=== PATIENT | female | born 1935 | race Hispanic/Latino ===

== ENCOUNTER 2017-07-29 09:25 | Inpatient (IN) | payer MEDICARE, OTHER ==
[~2017-07-29] VITALS: Ht 162.6 cm; Wt 82.4 kg
[~2017-07-29 09:25] MED LIST: BENZ-51 PO; FERR-82 PO; FOLI1TAB85 PO; IMAT400T2 PO; METO50TA18 PO; MIRT15TA6 PO; MUPI22OI2 TP; PANT40TA25 PO; POTA20TA82 PO; PROM25 PO; SITA50TA PO; TORS20TA4 PO; TRAM50TA4 PO
[2017-07-29 11:26] LABS: CREATININE 2.5 mg/dL (0.5-1.5); POTASSIUM 4.3 mmol/L (3.5-5.1)
[2017-07-29 11:28] LABS: ALBUMIN 3.4 g/dL (3.5-5.0); BILIRUBIN,TOTAL 0.7 mg/dL (0.2-1.0); TOTAL PROTEIN, SERUM 5.4 g/dL (6.0-8.3)
[2017-07-29 11:34] LABS: BASOPHILS % (AUTO) 0.3 % (0.0-5.0); EOSINOPHILS % (AUTO) 1.1 % (0.0-8.0); LYMPHOCYTES % (AUTO) 11.2 % (21.0-51.0); MEAN CORPUSCULAR HEMOGLOBIN 31.7 pg (27.0-33.0); MEAN CORPUSCULAR HGB CONC 33.9 g/dL (32.0-36.0); MEAN CORPUSCULAR VOLUME 93.4 fL (79-99); MONOCYTES % (AUTO) 3.9 % (3.0-13.0); NEUTROPHILS % (AUTO) 83.5 % (40.0-77.0); PLATELET COUNT (AUTO) 84 K/uL (130-400); RED BLOOD CELL COUNT(AUTO) 2.19 MIL/uL (4.00-5.50); RED CELL DISTRIBUTION WIDTH 18.4 % (11.0-15.5); WHITE BLOOD COUNT (AUTO) 5.7 K/uL (4.8-10.8)
[2017-07-29 11:45] LABS: HEMATOCRIT 20.4 % (36-48)
[2017-07-29 11:49] LABS: INR 1.07 (0.85-1.15); PARTIAL THROMBOPLASTIN TIME 25.4 SEC (26.3-35.5); PROTHROMBIN TIME 11.2 SEC (9.6-11.6)
[2017-07-29] MEDS ORDERED: PEG 3350/NA SULF,BICARB,CL/KCL 4000 ML SOLN PO SCH (15:15)
[2017-07-29 18:27] LABS: BASOPHILS % (AUTO) 0.7 % (0.0-5.0); EOSINOPHILS % (AUTO) 1.9 % (0.0-8.0); HEMATOCRIT 26.9 % (36-48); LYMPHOCYTES % (AUTO) 14.9 % (21.0-51.0); MEAN CORPUSCULAR HEMOGLOBIN 31.1 pg (27.0-33.0); MEAN CORPUSCULAR HGB CONC 34.1 g/dL (32.0-36.0); MEAN CORPUSCULAR VOLUME 91.2 fL (79-99); MONOCYTES % (AUTO) 5.8 % (3.0-13.0); NEUTROPHILS % (AUTO) 76.7 % (40.0-77.0); PLATELET COUNT (AUTO) 91 K/uL (130-400); RED BLOOD CELL COUNT(AUTO) 2.95 MIL/uL (4.00-5.50); RED CELL DISTRIBUTION WIDTH 18.2 % (11.0-15.5); WHITE BLOOD COUNT (AUTO) 7.4 K/uL (4.8-10.8)
[2017-07-30] MEDS ORDERED: SODIUM CHLORIDE 0.9% 1000ML 1,000 ML IV ONE (02:38)
[2017-07-30 05:48] LABS: BASOPHILS % (AUTO) 0.5 % (0.0-5.0); EOSINOPHILS % (AUTO) 2.2 % (0.0-8.0); LYMPHOCYTES % (AUTO) 13.9 % (21.0-51.0); MEAN CORPUSCULAR HEMOGLOBIN 32.8 pg (27.0-33.0); MEAN CORPUSCULAR HGB CONC 36.4 g/dL (32.0-36.0); MEAN CORPUSCULAR VOLUME 90.2 fL (79-99); MONOCYTES % (AUTO) 5.8 % (3.0-13.0); NEUTROPHILS % (AUTO) 77.6 % (40.0-77.0); PLATELET COUNT (AUTO) 80 K/uL (130-400); RED BLOOD CELL COUNT(AUTO) 2.88 MIL/uL (4.00-5.50); RED CELL DISTRIBUTION WIDTH 17.7 % (11.0-15.5); WHITE BLOOD COUNT (AUTO) 4.9 K/uL (4.8-10.8)
[2017-07-30 05:57] LABS: CREATININE 1.8 mg/dL (0.5-1.5); POTASSIUM 3.7 mmol/L (3.5-5.1)
[2017-07-30] MEDS ORDERED: PROPOFOL 10 MG/ML 20ML VIAL IV ONE (09:32)
[2017-07-30 12:09] VITALS: BP 143/59
[2017-07-30] MEDS ORDERED: ONDANSETRON HCL 4 MG/2 ML VIAL IVP PRN (12:30)
[2017-07-30] MEDS: PANTOPRAZOLE 40 MG/VIAL IVP SCH (14:32)
[2017-07-30] MEDS ORDERED: FURO40TA5 PO (15:08)
[2017-07-30] MEDS ORDERED: ROSU5TAB18 PO (15:08)
[2017-07-30 16:06] VITALS: BP 144/45
[2017-07-30] MEDS: INSULIN R PO SS1 SQ SCH ×2 (16:30→20:24)
[2017-07-30 19:42] VITALS: BP 130/64
[2017-07-31] VITALS: BP 117/54
[2017-07-31 04:00] VITALS: BP 129/55
[2017-07-31 04:29] LABS: BASOPHILS % (AUTO) 0.6 % (0.0-5.0); EOSINOPHILS % (AUTO) 3.1 % (0.0-8.0); HEMATOCRIT 25.9 % (36-48); LYMPHOCYTES % (AUTO) 9.9 % (21.0-51.0); MEAN CORPUSCULAR HEMOGLOBIN 31.4 pg (27.0-33.0); MEAN CORPUSCULAR HGB CONC 34.4 g/dL (32.0-36.0); MEAN CORPUSCULAR VOLUME 91.1 fL (79-99); MONOCYTES % (AUTO) 6.4 % (3.0-13.0); PLATELET COUNT (AUTO) 75 K/uL (130-400); RED BLOOD CELL COUNT(AUTO) 2.84 MIL/uL (4.00-5.50); RED CELL DISTRIBUTION WIDTH 17.9 % (11.0-15.5); WHITE BLOOD COUNT (AUTO) 5.7 K/uL (4.8-10.8)
[2017-07-31 04:41] LABS: CREATININE 1.3 mg/dL (0.5-1.5); POTASSIUM 3.6 mmol/L (3.5-5.1)
[2017-07-31] MEDS: INSULIN R PO SS1 SQ SCH ×2 (06:01→11:30)
[2017-07-31 07:00] VITALS: BP 138/44
[2017-07-31] MEDS ORDERED: PHARMACY COMMUNICATION MISC SCH (09:45)
[2017-07-31] MEDS: PANTOPRAZOLE 40 MG/VIAL IVP SCH (09:54)
[2017-07-31] MEDS ORDERED: MUPIROCIN OINTMENT 22 GM TUBE TP PRN (10:00)
[2017-07-31] MEDS ORDERED: TRAMADOL HCL 50 MG TABLET PO PRN (10:00)
[2017-07-31 11:00] VITALS: BP 127/63
[2017-07-31] MEDS ORDERED: BENZONATATE 100 MG CAPSULE PO SCH (14:00)
[2017-07-31] MEDS ORDERED: MIRTAZAPINE 15 MG TABLET PO SCH (21:00)
[2017-07-31] MEDS ORDERED: METOPROLOL TARTRATE 50 MG TAB PO SCH (21:00)
[2017-07-31] MEDS ORDERED: ATORVASTATIN CALCIUM 10 MG TABLET PO SCH (21:00)
[2017-07-31] MEDS ORDERED: BENEFIBER PO SCH (21:00)
[2017-08-01] MEDS ORDERED: FOLIC ACID/VITAMIN B COMP W-C 1 MG CAPSULE PO SCH (09:00)
[2017-08-01] MEDS ORDERED: PANTOPRAZOLE SODIUM 40 MG TABLET.DR PO SCH (09:00)
[2017-08-01] MEDS ORDERED: LINAGLIPTIN 5 MG TABLET PO SCH (09:00)
[2017-08-01] MEDS ORDERED: FUROSEMIDE 40 MG TABLET PO SCH (09:00)
[2017-08-01] MEDS ORDERED: FERROUS SULFATE 325 MG TABLET.DR PO SCH (09:00)
== END 2017-07-31 15:43 | disposition home or self-care (01) | DRG 377 ==
LOC: EDH 09:25 → EDHIP 12:34 → 2DH 07-30 11:35
PROVIDERS: ADMIT Internal Medicine Nephrology; ATTEND Internal Medicine Nephrology
PROC: 30233N1 Transfusion of Nonautologous Red Blood Cells into Peripheral Vein, Percutaneous Approach (ICD-10-PCS; principal; 2017-07-30)
PROC: 0DJD8ZZ Inspection of Lower Intestinal Tract, Via Natural or Artificial Opening Endoscopic (ICD-10-PCS; 2017-07-30)
PROC: 0DJ08ZZ Inspection of Upper Intestinal Tract, Via Natural or Artificial Opening Endoscopic (ICD-10-PCS; 2017-07-30)
DX: K29.01 Acute gastritis with bleeding (principal); R57.8 Other shock; C92.10 Chronic myeloid leukemia, BCR/ABL-positive, not having achieved remission; E11.21 Type 2 diabetes mellitus with diabetic nephropathy; N18.4 Chronic kidney disease, stage 4 (severe); N17.9 Acute kidney failure, unspecified; D69.6 Thrombocytopenia, unspecified; E11.51 Type 2 diabetes mellitus with diabetic peripheral angiopathy without gangrene; D62 Acute posthemorrhagic anemia; I42.9 Cardiomyopathy, unspecified; I13.0 Hypertensive heart and chronic kidney disease with heart failure and stage 1 through stage 4 chronic kidney disease, or unspecified chronic kidney disease; K64.8 Other hemorrhoids; K64.4 Residual hemorrhoidal skin tags; K57.30 Diverticulosis of large intestine without perforation or abscess without bleeding; I50.9 Heart failure, unspecified; E11.22 Type 2 diabetes mellitus with diabetic chronic kidney disease; E66.01 Morbid (severe) obesity due to excess calories; E78.5 Hyperlipidemia, unspecified; G47.33 Obstructive sleep apnea (adult) (pediatric); I25.10 Atherosclerotic heart disease of native coronary artery without angina pectoris; R62.7 Adult failure to thrive; Z90.710 Acquired absence of both cervix and uterus; Z80.42 Family history of malignant neoplasm of prostate; Z80.3 Family history of malignant neoplasm of breast; Z68.31 Body mass index [BMI] 31.0-31.9, adult; Z88.0 Allergy status to penicillin; Z88.8 Allergy status to other drugs, medicaments and biological substances; Z90.49 Acquired absence of other specified parts of digestive tract; Z98.42 Cataract extraction status, left eye; Z98.41 Cataract extraction status, right eye
CPT/HCPCS: 36415; 80048; 80053; 82948; 85025; 85610; 85730; 86850; 86900; 86901; 86922; 99291; C9113; J2704; J7030; P9016

== ENCOUNTER → 2017-10-14 | Outpatient (CLI) | payer OTHER ==
[~2017-10-14] MED LIST changes: -IMAT400T2 PO; +IMAT400T8 PO; +ONDA8TAB12 PO; +ROSU5TAB11 PO; +SENN-155 PO; +SENN-197 PO
== END | disposition home or self-care (01) ==
LOC: RAH 11:01
PROVIDERS: ATTEND Internal Medicine Gastroenterology
DX: R10.10 Upper abdominal pain, unspecified (principal); R14.0 Abdominal distension (gaseous); R10.9 Unspecified abdominal pain
CPT/HCPCS: 78264; A9541

== ENCOUNTER 2017-11-27 14:32 | Inpatient (IN) | payer OTHER ==
[~2017-11-27] VITALS: Ht 162.6 cm; Wt 79.3 kg
[~2017-11-27 14:32] MED LIST changes: -IMAT400T8 PO; -ONDA8TAB12 PO; -SENN-155 PO; -SENN-197 PO
[2017-11-27 16:09] LABS: BASOPHILS % (AUTO) 0.2 % (0.0-5.0); EOSINOPHILS % (AUTO) 0.1 % (0.0-8.0); LYMPHOCYTES % (AUTO) 8.5 % (21.0-51.0); MEAN CORPUSCULAR HEMOGLOBIN 30.8 pg (27.0-33.0); MEAN CORPUSCULAR HGB CONC 34.2 g/dL (32.0-36.0); MONOCYTES % (AUTO) 4.7 % (3.0-13.0); NEUTROPHILS % (AUTO) 86.5 % (40.0-77.0); NUCLEATED RED BLOOD CELLS 0.1 % (0.0-0.19); PLATELET COUNT (AUTO) 101 K/uL (130-400); RED BLOOD CELL COUNT(AUTO) 1.83 MIL/uL (4.00-5.50); RED CELL DISTRIBUTION WIDTH 20.1 % (11.0-15.5)
[2017-11-27 16:14] LABS: HEMATOCRIT 16.5 % (36-48)
[2017-11-27 16:25] LABS: ALBUMIN 3.7 g/dL (3.5-5.0); BILIRUBIN,TOTAL 0.7 mg/dL (0.2-1.0); CREATININE 2.5 mg/dL (0.5-1.5); POTASSIUM 3.1 mmol/L (3.5-5.1); TOTAL PROTEIN, SERUM 5.6 g/dL (6.0-8.3)
[2017-11-27] MEDS ORDERED: SODIUM CHLORIDE 0.9% 500ML 500 ML IV ONE (17:36)
[2017-11-27] MEDS ORDERED: DEXAMETHASONE SOD PHOSPHATE 10MG/ML 1ML VIAL ONE (17:48)
[2017-11-27] MEDS ORDERED: DiphenhydrAMINE HCL 50 MG/ML VIAL ONE (17:48)
[2017-11-27 19:10] VITALS: BP 150/74
[2017-11-27] MEDS ORDERED: SODIUM CHLORIDE 0.9% 1000ML 1,000 ML IV ONE (20:44)
[2017-11-28 00:22] VITALS: BP 135/68
[2017-11-28] MEDS ORDERED: SENNOSIDES 8.6 MG TABLET PO PRN (02:00)
[2017-11-28] MEDS ORDERED: TRAMADOL HCL 50 MG TABLET PO PRN (02:00)
[2017-11-28] MEDS ORDERED: SENN-155 PO (02:14)
[2017-11-28] MEDS ORDERED: SENN-197 PO (02:14)
[2017-11-28] MEDS ORDERED: IMAT400T8 PO (02:14)
[2017-11-28] MEDS ORDERED: ONDA8TAB12 PO (02:14)
[2017-11-28] MEDS ORDERED: ONDANSETRON HCL MDV 20ML 2 MG/ML VIAL IVP PRN (03:15)
[2017-11-28] MEDS ORDERED: HYDRALAZINE HCL 20 MG/ML VIAL IV PRN (03:15)
[2017-11-28] MEDS ORDERED: POTASSIUM CHLORIDE 10% ELIXIR 20 MEQ/15 ML UDCUP PO PRN (03:15)
[2017-11-28] MEDS ORDERED: LIDOCAINE HCL-MPF 1% 2ML VIAL IVP PRN (03:15)
[2017-11-28] MEDS ORDERED: POTASSIUM CHLORIDE 20MEQ/100ML 100 ML IV PRN (03:15)
[2017-11-28 04:10] VITALS: BP 138/74
[2017-11-28 06:02] LABS: HEMATOCRIT 24.8 % (36-48); MEAN CORPUSCULAR HEMOGLOBIN 29.9 pg (27.0-33.0); MEAN CORPUSCULAR HGB CONC 34.1 g/dL (32.0-36.0); MEAN CORPUSCULAR VOLUME 87.6 fL (79-99); PLATELET COUNT (AUTO) 70 K/uL (130-400); RED BLOOD CELL COUNT(AUTO) 2.83 MIL/uL (4.00-5.50); RED CELL DISTRIBUTION WIDTH 17.5 % (11.0-15.5); WHITE BLOOD COUNT (AUTO) 5.2 K/uL (4.8-10.8)
[2017-11-28 06:23] LABS: CREATININE 2.3 mg/dL (0.5-1.5); MAGNESIUM 1.6 mg/dL (1.80-2.40); PHOSPHORUS 3.9 mg/dL (2.5-4.9); POTASSIUM 3.8 mmol/L (3.5-5.1)
[2017-11-28 08:00] VITALS: BP 130/78
[2017-11-28] MEDS ORDERED: MORPHINE SULFATE 4 MG/1ML SYG IVP PRN (09:00)
[2017-11-28] MEDS ORDERED: MORPHINE SULFATE 2 MG/ML 1ML SYG IVP PRN (09:00)
[2017-11-28] MEDS: VITAMIN B COMPLEX 1 CAPSULE PO SCH ×2 (09:00→14:14)
[2017-11-28] MEDS: FAMOTIDINE/PF 20 MG/2 ML VIAL IV SCH (10:07)
[2017-11-28 11:00] VITALS: BP 143/68
[2017-11-28] MEDS: SODIUM CHLORIDE 0.9% 1000ML 1,000 ML IV SCH ×2 (12:00→14:17)
[2017-11-28] MEDS: PANTOPRAZOLE SODIUM 40 MG TABLET.DR PO SCH (14:13)
[2017-11-28] MEDS: LINAGLIPTIN 5 MG TABLET PO SCH (14:13)
[2017-11-28] MEDS: METOPROLOL TARTRATE 50 MG TAB PO SCH ×2 (14:13→21:43)
[2017-11-28] MEDS: BENZONATATE 100 MG CAPSULE PO SCH ×2 (14:13→21:43)
[2017-11-28] MEDS ORDERED: MAGNESIUM 2GM PREMIX 50ML 50 ML IV ONE (14:30)
[2017-11-28 16:00] VITALS: BP 149/63
[2017-11-28 19:00] VITALS: BP 161/87
[2017-11-28] MEDS: TORSEMIDE 20 MG TAB PO SCH (21:43)
[2017-11-28] MEDS: MIRTAZAPINE 15 MG TABLET PO SCH (21:43)
[2017-11-28 22:54] LABS: APPEARANCE,URINE Cloudy (CLEAR); BILIRUBIN,URINE Negative (NEGATIVE); COLOR,URINE Yellow (YELLOW); GLUCOSE, URINE (UA) Negative (NEGATIVE); KETONES,URINE Negative (NEGATIVE); LEUKOCYTE ESTERASE ,URINE Large (NEGATIVE); NITRATE,URINE Negative (NEGATIVE); OCCULT BLOOD,URINE Small (NEGATIVE); PH,URINE 5.5 (5.0-8.0); PROTEIN,URINE POS 1+ (NEGATIVE); UROBILINOGEN,URINE 0.2 mg/dL (0.2-1.0)
[2017-11-28 23:03] LABS: BACTERIA,URINE Moderate /HPF (None Seen); MUCUS,URINE Few LPF (None Seen); SQUAMOUS EPITHELIAL CELL,UR Few /HPF (0-2); TRANSITIONAL EPI CELLS,URINE Moderate /HPF (None Seen)
[2017-11-29 00:05] VITALS: BP 134/75
[2017-11-29] MEDS: SODIUM CHLORIDE 0.9% 1000ML 1,000 ML IV SCH (00:34)
[2017-11-29 04:10] VITALS: BP 122/62
[2017-11-29 06:54] LABS: BASOPHILS % (AUTO) 0.2 % (0.0-5.0); EOSINOPHILS % (AUTO) 0.1 % (0.0-8.0); LYMPHOCYTES % (AUTO) 7.3 % (21.0-51.0); MEAN CORPUSCULAR HGB CONC 34.5 g/dL (32.0-36.0); MONOCYTES % (AUTO) 7.3 % (3.0-13.0); NEUTROPHILS % (AUTO) 85.1 % (40.0-77.0); NUCLEATED RED BLOOD CELLS 0.1 % (0.0-0.19); PLATELET COUNT (AUTO) 83 K/uL (130-400); RED BLOOD CELL COUNT(AUTO) 2.78 MIL/uL (4.00-5.50); RED CELL DISTRIBUTION WIDTH 17.8 % (11.0-15.5); WHITE BLOOD COUNT (AUTO) 8.8 K/uL (4.8-10.8)
[2017-11-29 07:16] LABS: MAGNESIUM 2.1 mg/dL (1.80-2.40); POTASSIUM 3.6 mmol/L (3.5-5.1); URIC ACID 9.3 mg/dL (2.6-7.2)
[2017-11-29 08:00] VITALS: BP 135/79
[2017-11-29] MEDS: LINAGLIPTIN 5 MG TABLET PO SCH (08:55)
[2017-11-29] MEDS: METOPROLOL TARTRATE 50 MG TAB PO SCH ×2 (08:55→20:55)
[2017-11-29] MEDS: VITAMIN B COMPLEX 1 CAPSULE PO SCH (08:55)
[2017-11-29] MEDS: BENZONATATE 100 MG CAPSULE PO SCH ×3 (08:55→20:55)
[2017-11-29] MEDS: PANTOPRAZOLE SODIUM 40 MG TABLET.DR PO SCH (08:55)
[2017-11-29] MEDS: FAMOTIDINE/PF 20 MG/2 ML VIAL IV SCH (08:55)
[2017-11-29 11:00] VITALS: BP 134/68
[2017-11-29] MEDS: IPRATROPIUM/ALBUTEROL SULFATE 3 ML SOLUTION IH SCH ×3 (11:44→23:46)
[2017-11-29] MEDS ORDERED: ACETAMINOPHEN 325 MG TAB PO PRN (15:15)
[2017-11-29 16:00] VITALS: BP 125/69
[2017-11-29 19:05] VITALS: BP 129/71
[2017-11-29] MEDS: TORSEMIDE 20 MG TAB PO SCH (20:55)
[2017-11-29] MEDS: MIRTAZAPINE 15 MG TABLET PO SCH (20:55)
[2017-11-30] VITALS (7 sets, daily range): BP systolic 118–161; BP diastolic 54–79
[2017-11-30] MEDS: IPRATROPIUM/ALBUTEROL SULFATE 3 ML SOLUTION IH SCH ×4 (06:45→23:40)
[2017-11-30 07:34] LABS: HEMATOCRIT 25.6 % (36-48); MEAN CORPUSCULAR HEMOGLOBIN 30.1 pg (27.0-33.0); MEAN CORPUSCULAR HGB CONC 33.6 g/dL (32.0-36.0); MEAN CORPUSCULAR VOLUME 89.5 fL (79-99); NUCLEATED RED BLOOD CELLS 0.1 % (0.0-0.19); PLATELET COUNT (AUTO) 78 K/uL (130-400); RED BLOOD CELL COUNT(AUTO) 2.86 MIL/uL (4.00-5.50); RED CELL DISTRIBUTION WIDTH 17.9 % (11.0-15.5); WHITE BLOOD COUNT (AUTO) 7.8 K/uL (4.8-10.8)
[2017-11-30 07:45] LABS: CREATININE 1.6 mg/dL (0.5-1.5); POTASSIUM 3.1 mmol/L (3.5-5.1)
[2017-11-30] MEDS: VITAMIN B COMPLEX 1 CAPSULE PO SCH (09:27)
[2017-11-30] MEDS: METOPROLOL TARTRATE 50 MG TAB PO SCH ×2 (09:27→21:00)
[2017-11-30] MEDS: ALLOPURINOL 100 MG TABLET PO SCH (09:28)
[2017-11-30] MEDS: LINAGLIPTIN 5 MG TABLET PO SCH (09:28)
[2017-11-30] MEDS: PANTOPRAZOLE SODIUM 40 MG TABLET.DR PO SCH (09:28)
[2017-11-30] MEDS: BENZONATATE 100 MG CAPSULE PO SCH ×3 (09:28→21:00)
[2017-11-30] MEDS: POTASSIUM CHLORIDE 20 MEQ ERTAB PO PRN ×3 (09:29→15:08)
[2017-11-30] MEDS: FAMOTIDINE/PF 20 MG/2 ML VIAL IV SCH (09:29)
[2017-11-30] MEDS: TORSEMIDE 20 MG TAB PO SCH (21:00)
[2017-11-30] MEDS: MIRTAZAPINE 15 MG TABLET PO SCH (21:00)
[2017-12-01] VITALS (7 sets, daily range): BP systolic 128–175; BP diastolic 54–81
[2017-12-01 05:40] LABS: HEMATOCRIT 25.4 % (36-48); MEAN CORPUSCULAR HEMOGLOBIN 30.8 pg (27.0-33.0); MEAN CORPUSCULAR HGB CONC 34.1 g/dL (32.0-36.0); MEAN CORPUSCULAR VOLUME 90.6 fL (79-99); PLATELET COUNT (AUTO) 74 K/uL (130-400); RED CELL DISTRIBUTION WIDTH 17.9 % (11.0-15.5); WHITE BLOOD COUNT (AUTO) 7.1 K/uL (4.8-10.8)
[2017-12-01 05:50] LABS: EOSINOPHILS % (MANUAL) 1 % (1-6); LYMPHOCYTES % (MANUAL) 9 % (22-44); MAN.DIFF COMMENT-IMPRESSION MANUAL DIFFERENTIAL; PLATELET MORPHOLOGY COMMENT DECREASED; SEGMENTED NEUTROPHILS % 90 % (40-70)
[2017-12-01 05:57] LABS: CREATININE 1.4 mg/dL (0.5-1.5); MAGNESIUM 1.9 mg/dL (1.80-2.40); PHOSPHORUS 2.5 mg/dL (2.5-4.9); POTASSIUM 3.8 mmol/L (3.5-5.1)
[2017-12-01] MEDS: IPRATROPIUM/ALBUTEROL SULFATE 3 ML SOLUTION IH SCH ×4 (06:56→23:55)
[2017-12-01] MEDS: VITAMIN B COMPLEX 1 CAPSULE PO SCH (09:43)
[2017-12-01] MEDS: PANTOPRAZOLE SODIUM 40 MG TABLET.DR PO SCH (09:43)
[2017-12-01] MEDS: FAMOTIDINE/PF 20 MG/2 ML VIAL IV SCH (09:43)
[2017-12-01] MEDS: BENZONATATE 100 MG CAPSULE PO SCH ×3 (09:43→20:00)
[2017-12-01] MEDS: ALLOPURINOL 100 MG TABLET PO SCH (09:43)
[2017-12-01] MEDS: METOPROLOL TARTRATE 50 MG TAB PO SCH ×2 (09:44→20:00)
[2017-12-01] MEDS: LINAGLIPTIN 5 MG TABLET PO SCH (09:44)
[2017-12-01] MEDS: MIRTAZAPINE 15 MG TABLET PO SCH (20:00)
[2017-12-01] MEDS: TORSEMIDE 20 MG TAB PO SCH (20:00)
[2017-12-02 03:56] VITALS: BP 120/50
[2017-12-02 04:31] LABS: HEMATOCRIT 23.7 % (36-48); MEAN CORPUSCULAR HEMOGLOBIN 30.1 pg (27.0-33.0); MEAN CORPUSCULAR VOLUME 90.9 fL (79-99); PLATELET COUNT (AUTO) 76 K/uL (130-400); RED CELL DISTRIBUTION WIDTH 18.5 % (11.0-15.5); WHITE BLOOD COUNT (AUTO) 6.5 K/uL (4.8-10.8)
[2017-12-02 04:47] LABS: CREATININE 1.3 mg/dL (0.5-1.5); POTASSIUM 3.3 mmol/L (3.5-5.1)
[2017-12-02] MEDS: POTASSIUM CHLORIDE 20 MEQ ERTAB PO PRN (05:00)
[2017-12-02 05:17] LABS: EOSINOPHILS % (MANUAL) 4 % (1-6); LYMPHOCYTES % (MANUAL) 6 % (22-44); MAN.DIFF COMMENT-IMPRESSION MANUAL DIFFERENTIAL; MONOCYTES % (MANUAL) 4 % (2-9); SEGMENTED NEUTROPHILS % 86 % (40-70)
[2017-12-02 05:18] LABS: PLATELET MORPHOLOGY COMMENT DECREASED
[2017-12-02] MEDS: IPRATROPIUM/ALBUTEROL SULFATE 3 ML SOLUTION IH SCH ×2 (06:46→11:18)
[2017-12-02 08:00] VITALS: BP 149/64
[2017-12-02] MEDS: BENZONATATE 100 MG CAPSULE PO SCH ×2 (09:00→14:00)
[2017-12-02] MEDS: VITAMIN B COMPLEX 1 CAPSULE PO SCH (10:01)
[2017-12-02] MEDS: METOPROLOL TARTRATE 50 MG TAB PO SCH (10:01)
[2017-12-02] MEDS: FAMOTIDINE/PF 20 MG/2 ML VIAL IV SCH (10:02)
[2017-12-02] MEDS: LINAGLIPTIN 5 MG TABLET PO SCH (10:02)
[2017-12-02] MEDS: PANTOPRAZOLE SODIUM 40 MG TABLET.DR PO SCH (10:02)
[2017-12-02] MEDS: ALLOPURINOL 100 MG TABLET PO SCH (10:02)
[2017-12-02] MEDS ORDERED: ACETAMINOPHEN 325 MG TAB PO SCH (11:30)
[2017-12-02] MEDS ORDERED: DiphenhydrAMINE HCL 50 MG/ML VIAL IV SCH (11:30)
[2017-12-02 11:32] VITALS: BP 151/64
[2017-12-02 16:00] VITALS: BP 164/74
[2017-12-02] MEDS ORDERED: HEPARIN SODIUM/PF 100UNIT/ML 5ML SYRINGE IV SCH (18:30)
== END 2017-12-02 18:55 | disposition home or self-care (01) | DRG 378 ==
LOC: EDH 14:32 → EDHIP 14:33 → 3DH 19:51
PROVIDERS: ADMIT Internal Medicine; ATTEND Internal Medicine
PROC: 30233N1 Transfusion of Nonautologous Red Blood Cells into Peripheral Vein, Percutaneous Approach (ICD-10-PCS; principal; 2017-11-27)
DX: K92.2 Gastrointestinal hemorrhage, unspecified (principal); C92.10 Chronic myeloid leukemia, BCR/ABL-positive, not having achieved remission; I13.0 Hypertensive heart and chronic kidney disease with heart failure and stage 1 through stage 4 chronic kidney disease, or unspecified chronic kidney disease; I50.32 Chronic diastolic (congestive) heart failure; N17.9 Acute kidney failure, unspecified; E11.21 Type 2 diabetes mellitus with diabetic nephropathy; D69.6 Thrombocytopenia, unspecified; E11.22 Type 2 diabetes mellitus with diabetic chronic kidney disease; K92.1 Melena; D50.0 Iron deficiency anemia secondary to blood loss (chronic); N18.9 Chronic kidney disease, unspecified; I25.10 Atherosclerotic heart disease of native coronary artery without angina pectoris; E78.5 Hyperlipidemia, unspecified; E11.51 Type 2 diabetes mellitus with diabetic peripheral angiopathy without gangrene; E83.42 Hypomagnesemia; G47.33 Obstructive sleep apnea (adult) (pediatric); E78.00 Pure hypercholesterolemia, unspecified; R62.7 Adult failure to thrive; Z88.0 Allergy status to penicillin; Z88.8 Allergy status to other drugs, medicaments and biological substances; Z95.0 Presence of cardiac pacemaker; Z90.710 Acquired absence of both cervix and uterus; Z87.440 Personal history of urinary (tract) infections; Z98.41 Cataract extraction status, right eye; Z80.42 Family history of malignant neoplasm of prostate; Z80.3 Family history of malignant neoplasm of breast
CPT/HCPCS: 36415; 36430; 71045; 78278; 80048; 80053; 81001; 82948; 83735; 83880; 84100; 84550; 85014; 85018; 85025; 85027; 86850; 86900; 86901; 86922; 94640; 94660; 94664; A9512; J1100; J1200; J1642; J3475; J3490; J7030; J7040; P9016

== ENCOUNTER 2017-12-18 06:23 | Inpatient (IN) | payer OTHER ==
[~2017-12-18] VITALS: Ht 165.1 cm; Wt 79.8 kg
[~2017-12-18 06:23] MED LIST changes: +IMAT400T8 PO; +ONDA8TAB12 PO; +SENN-155 PO; +SENN-197 PO
[2017-12-18] MEDS ORDERED: SODIUM CHLORIDE 0.9% 1000ML 1,000 ML IV ONE (07:10)
[2017-12-18 07:38] LABS: EOSINOPHILS % (AUTO) 1.2 % (0.0-8.0); LYMPHOCYTES % (AUTO) 5.2 % (21.0-51.0); MEAN CORPUSCULAR HEMOGLOBIN 29.6 pg (27.0-33.0); MEAN CORPUSCULAR HGB CONC 33.1 g/dL (32.0-36.0); MEAN CORPUSCULAR VOLUME 89.3 fL (79-99); MONOCYTES % (AUTO) 5.2 % (3.0-13.0); NEUTROPHILS % (AUTO) 87.4 % (40.0-77.0); PLATELET COUNT (AUTO) 106 K/uL (130-400); RED BLOOD CELL COUNT(AUTO) 2.19 MIL/uL (4.00-5.50); RED CELL DISTRIBUTION WIDTH 19.1 % (11.0-15.5); WHITE BLOOD COUNT (AUTO) 8.5 K/uL (4.8-10.8)
[2017-12-18 07:47] LABS: HEMATOCRIT 19.6 % (36-48)
[2017-12-18 07:49] LABS: CREATININE 2.5 mg/dL (0.5-1.5)
[2017-12-18 07:54] LABS: ALBUMIN 2.9 g/dL (3.5-5.0); BILIRUBIN,TOTAL 0.7 mg/dL (0.2-1.0); TOTAL PROTEIN, SERUM 4.8 g/dL (6.0-8.3)
[2017-12-18 08:00] LABS: INR 1.08 (0.85-1.15); PARTIAL THROMBOPLASTIN TIME 29.1 SEC (26.3-35.5); PROTHROMBIN TIME 11.3 SEC (9.6-11.6)
[2017-12-18 11:50] LABS: HEMATOCRIT 24.7 % (36-48)
[2017-12-18 16:35] VITALS: BP 148/64
[2017-12-18] MEDS ORDERED: DEXTROSE 50%-WATER 50 ML DISP.SYRIN IV PRN ×2 (19:00→19:15)
[2017-12-18] MEDS ORDERED: GLUCAGON 1MG KIT 1 MG ML IM PRN ×2 (19:00→19:15)
[2017-12-18] MEDS ORDERED: ACETAMINOPHEN 325 MG TAB ONE (19:24)
[2017-12-18 19:26] LABS: HEMATOCRIT 23.2 % (36-48)
[2017-12-18] MEDS ORDERED: ACETAMINOPHEN 325 MG TAB PO PRN ×2 (19:30)
[2017-12-18 19:38] VITALS: BP 159/78
[2017-12-18] MEDS: INSULIN R PO SS1 SQ SCH (21:00)
[2017-12-18] MEDS: HYDROCORTISONE 25 MG SUPPOSITORY PR SCH (21:24)
[2017-12-18] MEDS: PSYLLIUM SEED 1 EACH PACKET PO SCH (21:24)
[2017-12-18] MEDS: INSULIN HUMULIN R 100 UNIT/ML 3ML SQ SCH (23:20)
[2017-12-18] MEDS: HYDROMORPHONE HCL 0.5 MG/0.5 ML ML IVP SCH (23:30)
[2017-12-18] MEDS ORDERED: PHARMACY COMMUNICATION MISC SCH (23:45)
[2017-12-19] VITALS: BP 131/78
[2017-12-19] MEDS ORDERED: HYDROMORPHONE HCL 0.5 MG/0.5 ML ML ONE (01:05)
[2017-12-19] MEDS: IPRATROPIUM/ALBUTEROL SULFATE 3 ML SOLUTION IH SCH ×6 (01:31→22:08)
[2017-12-19 04:00] VITALS: BP 141/79
[2017-12-19 04:41] LABS: MEAN CORPUSCULAR HEMOGLOBIN 29.3 pg (27.0-33.0); MEAN CORPUSCULAR HGB CONC 33.5 g/dL (32.0-36.0); MEAN CORPUSCULAR VOLUME 87.4 fL (79-99); PLATELET COUNT (AUTO) 106 K/uL (130-400); RED BLOOD CELL COUNT(AUTO) 2.51 MIL/uL (4.00-5.50); RED CELL DISTRIBUTION WIDTH 19.2 % (11.0-15.5); WHITE BLOOD COUNT (AUTO) 8.2 K/uL (4.8-10.8)
[2017-12-19 04:46] LABS: POTASSIUM 3.4 mmol/L (3.5-5.1)
[2017-12-19] MEDS: INSULIN HUMULIN R 100 UNIT/ML 3ML SQ SCH ×2 (06:00→12:00)
[2017-12-19] MEDS ORDERED: ZOSYN 3.375GM+NS 50ML 50 ML IV SCH (07:00)
[2017-12-19] MEDS: INSULIN R PO SS1 SQ SCH ×4 (07:08→20:36)
[2017-12-19 07:56] VITALS: BP 144/65
[2017-12-19] MEDS: PSYLLIUM SEED 1 EACH PACKET PO SCH ×3 (08:57→20:08)
[2017-12-19] MEDS: PANTOPRAZOLE 40 MG/VIAL IVP SCH (08:57)
[2017-12-19] MEDS: HYDROCORTISONE 25 MG SUPPOSITORY PR SCH ×2 (08:57→20:08)
[2017-12-19 11:19] VITALS: BP 143/54
[2017-12-19] MEDS ORDERED: COMPOUND IV MISC 1 EACH IVSOLN MISC PRN (13:00)
[2017-12-19] MEDS ORDERED: EPOETIN ALFA 20,000 UNIT/ML VIAL SQ SCH (13:00)
[2017-12-19 16:12] VITALS: BP 143/54
[2017-12-19 19:14] LABS: APPEARANCE,URINE Turbid (CLEAR); BILIRUBIN,URINE Negative (NEGATIVE); COLOR,URINE Yellow (YELLOW); GLUCOSE, URINE (UA) Negative (NEGATIVE); KETONES,URINE Negative (NEGATIVE); LEUKOCYTE ESTERASE ,URINE Large (NEGATIVE); NITRATE,URINE Negative (NEGATIVE); OCCULT BLOOD,URINE Moderate (NEGATIVE); PROTEIN,URINE POS 1+ (NEGATIVE); UROBILINOGEN,URINE 0.2 mg/dL (0.2-1.0)
[2017-12-19 19:20] LABS: BACTERIA,URINE Few /HPF (None Seen); RBC,URINE None Seen /HPF (0-1); SQUAMOUS EPITHELIAL CELL,UR 0-2 /HPF (0-2); WBC,URINE Full Field /HPF (0-1)
[2017-12-19 20:00] VITALS: BP 143/66
[2017-12-19] MEDS: HYDROMORPHONE HCL 0.5 MG/0.5 ML ML IVP SCH (23:30)
[2017-12-20 00:04] VITALS: BP 130/58
[2017-12-20] MEDS: IPRATROPIUM/ALBUTEROL SULFATE 3 ML SOLUTION IH SCH ×6 (01:38→21:30)
[2017-12-20 04:04] VITALS: BP 143/66
[2017-12-20 05:05] LABS: CREATININE 1.5 mg/dL (0.5-1.5); POTASSIUM 3.6 mmol/L (3.5-5.1)
[2017-12-20] MEDS: INSULIN R PO SS1 SQ SCH ×4 (05:26→21:00)
[2017-12-20 05:56] LABS: BASOPHILS % (AUTO) 0.5 % (0.0-5.0); EOSINOPHILS % (AUTO) 1.4 % (0.0-8.0); HEMATOCRIT 24.7 % (36-48); LYMPHOCYTES % (AUTO) 5.6 % (21.0-51.0); MEAN CORPUSCULAR HEMOGLOBIN 29.6 pg (27.0-33.0); MEAN CORPUSCULAR HGB CONC 33.7 g/dL (32.0-36.0); MEAN CORPUSCULAR VOLUME 87.9 fL (79-99); MONOCYTES % (AUTO) 5.5 % (3.0-13.0); PLATELET COUNT (AUTO) 95 K/uL (130-400); RED BLOOD CELL COUNT(AUTO) 2.82 MIL/uL (4.00-5.50); RED CELL DISTRIBUTION WIDTH 17.6 % (11.0-15.5); WHITE BLOOD COUNT (AUTO) 7.8 K/uL (4.8-10.8)
[2017-12-20 08:15] VITALS: BP 132/47
[2017-12-20] MEDS: PSYLLIUM SEED 1 EACH PACKET PO SCH ×3 (08:36→19:27)
[2017-12-20] MEDS: IRON SUCROSE COMPLEX 100 MG in SODIUM CHLORIDE 0.9% 50 ML IV SCH (08:36)
[2017-12-20] MEDS: PANTOPRAZOLE 40 MG/VIAL IVP SCH (08:36)
[2017-12-20] MEDS: HYDROCORTISONE 25 MG SUPPOSITORY PR SCH ×2 (08:36→19:27)
[2017-12-20 12:27] VITALS: BP 121/56
[2017-12-20] MEDS ORDERED: SODIUM CHLORIDE 0.9% 250 ML IV ONE (15:15)
[2017-12-20 16:26] VITALS: BP 147/69
[2017-12-20 20:00] VITALS: BP 145/63
[2017-12-20] MEDS: HYDROMORPHONE HCL 0.5 MG/0.5 ML ML IVP SCH (22:37)
[2017-12-21] VITALS: BP 130/59
[2017-12-21] MEDS: IPRATROPIUM/ALBUTEROL SULFATE 3 ML SOLUTION IH SCH ×3 (01:27→09:55)
[2017-12-21 04:04] VITALS: BP 109/52
[2017-12-21 05:02] LABS: MEAN CORPUSCULAR HGB CONC 34.2 g/dL (32.0-36.0); MEAN CORPUSCULAR VOLUME 87.8 fL (79-99); PLATELET COUNT (AUTO) 76 K/uL (130-400); RED BLOOD CELL COUNT(AUTO) 2.85 MIL/uL (4.00-5.50); RED CELL DISTRIBUTION WIDTH 16.8 % (11.0-15.5); WHITE BLOOD COUNT (AUTO) 6.3 K/uL (4.8-10.8)
[2017-12-21 05:09] LABS: BAND NEUTROPHILS % (MANUAL) 4 % (0-2); BASOPHILS % (MANUAL) 1 % (0-2); LYMPHOCYTES % (MANUAL) 7 % (22-44); MONOCYTES % (MANUAL) 6 % (2-9); SEGMENTED NEUTROPHILS % 82 % (40-70)
[2017-12-21 05:10] LABS: MAN.DIFF COMMENT-IMPRESSION MANUAL DIFFERENTIAL; PLATELET MORPHOLOGY COMMENT DECREASED
[2017-12-21] MEDS: INSULIN R PO SS1 SQ SCH ×2 (06:07→11:09)
[2017-12-21 08:00] VITALS: BP 124/65
[2017-12-21] MEDS: PSYLLIUM SEED 1 EACH PACKET PO SCH (08:42)
[2017-12-21] MEDS: PANTOPRAZOLE 40 MG/VIAL IVP SCH (08:42)
[2017-12-21] MEDS: IRON SUCROSE COMPLEX 100 MG in SODIUM CHLORIDE 0.9% 50 ML IV SCH (08:42)
[2017-12-21] MEDS: HYDROCORTISONE 25 MG SUPPOSITORY PR SCH (08:42)
[2017-12-21 11:27] VITALS: BP 133/72
== END 2017-12-21 14:32 | disposition home or self-care (01) | DRG 378 ==
LOC: EDH 06:23 → EDHIP 08:41 → 4AH 14:17
PROVIDERS: ADMIT Internal Medicine Nephrology; ATTEND Internal Medicine Nephrology
PROC: 30233N1 Transfusion of Nonautologous Red Blood Cells into Peripheral Vein, Percutaneous Approach (ICD-10-PCS; principal; 2017-12-18)
DX: K92.1 Melena (principal); D62 Acute posthemorrhagic anemia; C92.10 Chronic myeloid leukemia, BCR/ABL-positive, not having achieved remission; I13.0 Hypertensive heart and chronic kidney disease with heart failure and stage 1 through stage 4 chronic kidney disease, or unspecified chronic kidney disease; N17.9 Acute kidney failure, unspecified; N18.4 Chronic kidney disease, stage 4 (severe); E11.21 Type 2 diabetes mellitus with diabetic nephropathy; E11.22 Type 2 diabetes mellitus with diabetic chronic kidney disease; E11.51 Type 2 diabetes mellitus with diabetic peripheral angiopathy without gangrene; E78.00 Pure hypercholesterolemia, unspecified; E78.5 Hyperlipidemia, unspecified; I25.10 Atherosclerotic heart disease of native coronary artery without angina pectoris; I50.9 Heart failure, unspecified; Z90.710 Acquired absence of both cervix and uterus; Z95.1 Presence of aortocoronary bypass graft; Z95.2 Presence of prosthetic heart valve; Z90.49 Acquired absence of other specified parts of digestive tract; Z98.49 Cataract extraction status, unspecified eye; Z88.0 Allergy status to penicillin
CPT/HCPCS: 36415; 36430; 78278; 80048; 80053; 81001; 82270; 82948; 85014; 85018; 85025; 85027; 85610; 85730; 86850; 86900; 86901; 86922; 93005; 94640; 94664; 99291; A9512; C9113; J0885; J1170; J1756; J2543; J7030; P9016

== ENCOUNTER 2018-09-08 08:50 | Inpatient (IN) | payer OTHER ==
[~2018-09-08] VITALS: Ht 162.6 cm; Wt 70.2 kg
[~2018-09-08 08:50] MED LIST changes: -BENZ-51 PO; -IMAT400T8 PO; -MUPI22OI2 TP; -ONDA8TAB12 PO; -POTA20TA82 PO; -PROM25 PO; -SENN-155 PO; +SENN1TAB53 PO
[2018-09-08 09:16] LABS: BASOPHILS % (AUTO) 3.9 % (0.0-5.0); EOSINOPHILS % (AUTO) 2.1 % (0.0-8.0); HEMATOCRIT 23.4 % (36-48); LYMPHOCYTES % (AUTO) 5.7 % (21.0-51.0); MEAN CORPUSCULAR HEMOGLOBIN 30.4 pg (27.0-33.0); MEAN CORPUSCULAR HGB CONC 33.1 g/dL (32.0-36.0); MEAN CORPUSCULAR VOLUME 91.7 fL (79-99); MONOCYTES % (AUTO) 2.3 % (3.0-13.0); PLATELET COUNT (AUTO) 308 K/uL (130-400); RED BLOOD CELL COUNT(AUTO) 2.55 MIL/uL (4.00-5.50); RED CELL DISTRIBUTION WIDTH 17.8 % (11.0-15.5)
[2018-09-08 09:29] LABS: ALBUMIN 3.1 g/dL (3.5-5.0); BILIRUBIN,TOTAL 0.5 mg/dL (0.2-1.0)
[2018-09-08] MEDS ORDERED: ONDANSETRON HCL 4 MG/2 ML VIAL IVP PRN (11:00)
[2018-09-08] MEDS ORDERED: ACETAMINOPHEN 325 MG TAB PO PRN (11:00)
[2018-09-08 16:35] VITALS: BP 126/22
[2018-09-08] MEDS ORDERED: FOLI1TAB15 PO (17:12)
[2018-09-08] MEDS ORDERED: IMAT400T8 PO (17:12)
[2018-09-08] MEDS ORDERED: GABA-529 PO (17:12)
[2018-09-08] MEDS ORDERED: SUCR1TAB2 PO (17:12)
[2018-09-08 17:25] VITALS: BP 133/48
[2018-09-08 19:12] VITALS: BP 131/42
[2018-09-08] MEDS ORDERED: DEXTROSE 50%-WATER 50 ML DISP.SYRIN IV PRN (20:00)
[2018-09-08] MEDS ORDERED: GLUCAGON 1MG KIT 1 MG ML IM PRN (20:00)
[2018-09-08] MEDS: INSULIN HUMULIN R 100 UNIT/ML 3ML SQ SCH (21:00)
[2018-09-08 21:28] LABS: HEMATOCRIT 25.3 % (36-48)
[2018-09-09] VITALS (10 sets, daily range): BP systolic 112–142; BP diastolic 45–66
[2018-09-09 05:21] LABS: INR 1.04 (0.85-1.15); PARTIAL THROMBOPLASTIN TIME 23.1 SEC (26.3-35.5); PROTHROMBIN TIME 10.9 SEC (9.6-11.6)
[2018-09-09 05:22] LABS: BASOPHILS % (AUTO) 3.5 % (0.0-5.0); EOSINOPHILS % (AUTO) 2.4 % (0.0-8.0); HEMATOCRIT 23.3 % (36-48); LYMPHOCYTES % (AUTO) 11.4 % (21.0-51.0); MEAN CORPUSCULAR HEMOGLOBIN 30.4 pg (27.0-33.0); MEAN CORPUSCULAR HGB CONC 32.7 g/dL (32.0-36.0); MONOCYTES % (AUTO) 3.9 % (3.0-13.0); NEUTROPHILS % (AUTO) 78.8 % (40.0-77.0); NUCLEATED RED BLOOD CELLS 0.1 % (0.0-0.19); PLATELET COUNT (AUTO) 215 K/uL (130-400); RED BLOOD CELL COUNT(AUTO) 2.51 MIL/uL (4.00-5.50); RED CELL DISTRIBUTION WIDTH 16.5 % (11.0-15.5); WHITE BLOOD COUNT (AUTO) 6.3 K/uL (4.8-10.8)
[2018-09-09] MEDS: INSULIN HUMULIN R 100 UNIT/ML 3ML SQ SCH ×2 (05:35→21:00)
[2018-09-09 05:50] LABS: BILIRUBIN,TOTAL 0.6 mg/dL (0.2-1.0); CREATININE 1.5 mg/dL (0.5-1.5); PHOSPHORUS 3.1 mg/dL (2.5-4.9); POTASSIUM 3.6 mmol/L (3.5-5.1); THYROID STIMULATING HORMONE 1.65 uIU/mL (0.36-3.74); TOTAL PROTEIN, SERUM 4.8 g/dL (6.0-8.3)
--- NOTE | 2018-09-09 08:30 | NUR ---
Patient continues to have loose black tarry stools. Dr. Surya ch. pending call back. Extension tubing requested from RT. Patient in no distress. States she gets weak going to br. instructed on calling us to go to BR with Assistance but pt states she has too go quickly and goes to bathroom jose daniel her own. Reinforced call light at bedside and use call light string emergency in the BR if she experiences dizziness, blacking out, or fainting. pt verbalized understanding to teaching.
[2018-09-09] MEDS ORDERED: SODIUM CHLORIDE 0.9% 500ML 500 ML IV ONE (10:24)
[2018-09-09] MEDS: PANTOPRAZOLE 40 MG/VIAL IVP SCH (10:37)
[2018-09-09] MEDS ORDERED: TRAMADOL HCL 50 MG TABLET PO PRN (12:45)
--- NOTE | 2018-09-09 17:00 | NUR ---
CM NOTE MET W PATIENT, KNOWN TO THIS OFFICE SUPPORT CLERK; HS OF LEUKEMIA WITH RECURRENT ANEMIA AND ADMISSION FOR TRANSFUSION; DIANNA IS ONCOLOGIST; WEAK BUT STILL MOSTLY INDEPENDENT OF ADLS NO HH, NO PROIVDER NO DME LIVES WITH SPOUSE SHAYE ZAVALA JOSEPH VALERA MIRTA IS HOME Addendum: 09/10/18 at 1956 by SONU SOLIZ RN CM Amended: Links added.
[2018-09-09 21:22] LABS: HEMATOCRIT 29.8 % (36-48)
[2018-09-09] MEDS: ATORVASTATIN CALCIUM 10 MG TABLET PO SCH (22:00)
[2018-09-09] MEDS: FERROUS SULFATE 325 MG TABLET.DR PO SCH (22:00)
[2018-09-09] MEDS: METOPROLOL TARTRATE 50 MG TAB PO SCH (22:00)
[2018-09-09] MEDS: MIRTAZAPINE 15 MG TABLET PO SCH (22:00)
[2018-09-09] MEDS: TORSEMIDE 20 MG TAB PO SCH (22:00)
[2018-09-10] VITALS (7 sets, daily range): BP systolic 124–146; BP diastolic 54–63
[2018-09-10 04:46] LABS: HEMATOCRIT 32.5 % (36-48); MEAN CORPUSCULAR HEMOGLOBIN 31.1 pg (27.0-33.0); MEAN CORPUSCULAR HGB CONC 33.5 g/dL (32.0-36.0); PLATELET COUNT (AUTO) 201 K/uL (130-400); RED CELL DISTRIBUTION WIDTH 16.3 % (11.0-15.5)
[2018-09-10 05:00] LABS: CREATININE 1.3 mg/dL (0.5-1.5); POTASSIUM 3.6 mmol/L (3.5-5.1)
[2018-09-10 05:13] LABS: BAND NEUTROPHILS % (MANUAL) 3 % (0-2); BASOPHILS % (MANUAL) 3 % (0-2); EOSINOPHILS % (MANUAL) 2 % (1-6); LYMPHOCYTES % (MANUAL) 14 % (22-44); MAN.DIFF COMMENT-IMPRESSION MANUAL DIFFERENTIAL; MONOCYTES % (MANUAL) 1 % (2-9); SEGMENTED NEUTROPHILS % 77 % (40-70)
[2018-09-10 05:14] LABS: PLATELET MORPHOLOGY COMMENT ADEQUATE
[2018-09-10] MEDS: SUCRALFATE 1 GM TABLET PO SCH ×3 (06:20→17:33)
[2018-09-10] MEDS: INSULIN HUMULIN R 100 UNIT/ML 3ML SQ SCH ×4 (06:20→20:21)
[2018-09-10] MEDS: PANTOPRAZOLE 40 MG/VIAL IVP SCH (09:00)
[2018-09-10] MEDS ORDERED: STOOL SOFTENER PO PRN (09:00)
[2018-09-10] MEDS ORDERED: [UNRECOGNIZED DRUG - OTHER] PO PRN (09:00)
[2018-09-10] MEDS: FOLIC ACID 1 MG TABLET PO SCH (10:03)
[2018-09-10] MEDS: FERROUS SULFATE 325 MG TABLET.DR PO SCH ×2 (10:03→20:19)
[2018-09-10] MEDS: GABAPENTIN 100 MG CAPSULE PO SCH (10:04)
[2018-09-10] MEDS: METOPROLOL TARTRATE 50 MG TAB PO SCH ×2 (10:04→20:19)
[2018-09-10] MEDS: FOLIC ACID/VITAMIN B COMP W-C 1 MG CAPSULE PO SCH (10:04)
[2018-09-10] MEDS: LINAGLIPTIN 5 MG TABLET PO SCH (10:04)
[2018-09-10] MEDS: PANTOPRAZOLE SODIUM 40 MG TABLET.DR PO SCH (10:04)
[2018-09-10 10:49] LABS: HEMATOCRIT 33.9 % (36-48)
[2018-09-10] MEDS: ATORVASTATIN CALCIUM 10 MG TABLET PO SCH (20:19)
[2018-09-10] MEDS: TORSEMIDE 20 MG TAB PO SCH (20:19)
[2018-09-10] MEDS: MIRTAZAPINE 15 MG TABLET PO SCH (20:20)
[2018-09-10 20:46] LABS: HEMATOCRIT 30.1 % (36-48)
[2018-09-11 03:56] VITALS: BP 135/55
[2018-09-11 04:48] LABS: HEMATOCRIT 29.2 % (36-48); MEAN CORPUSCULAR HEMOGLOBIN 31.3 pg (27.0-33.0); MEAN CORPUSCULAR HGB CONC 33.4 g/dL (32.0-36.0); MEAN CORPUSCULAR VOLUME 93.8 fL (79-99); PLATELET COUNT (AUTO) 191 K/uL (130-400); RED BLOOD CELL COUNT(AUTO) 3.12 MIL/uL (4.00-5.50); RED CELL DISTRIBUTION WIDTH 16.6 % (11.0-15.5); WHITE BLOOD COUNT (AUTO) 7.7 K/uL (4.8-10.8)
[2018-09-11 05:04] LABS: BAND NEUTROPHILS % (MANUAL) 1 % (0-2); BASOPHILS % (MANUAL) 1 % (0-2); EOSINOPHILS % (MANUAL) 3 % (1-6); LYMPHOCYTES % (MANUAL) 13 % (22-44); MAN.DIFF COMMENT-IMPRESSION MANUAL DIFFERENTIAL; MONOCYTES % (MANUAL) 2 % (2-9); SEGMENTED NEUTROPHILS % 80 % (40-70)
[2018-09-11] MEDS: INSULIN HUMULIN R 100 UNIT/ML 3ML SQ SCH ×4 (06:41→20:29)
[2018-09-11] MEDS: SUCRALFATE 1 GM TABLET PO SCH ×3 (06:49→17:13)
[2018-09-11 08:00] VITALS: BP 151/59
[2018-09-11] MEDS: FOLIC ACID 1 MG TABLET PO SCH (08:43)
[2018-09-11] MEDS: PANTOPRAZOLE SODIUM 40 MG TABLET.DR PO SCH (08:43)
[2018-09-11] MEDS: FOLIC ACID/VITAMIN B COMP W-C 1 MG CAPSULE PO SCH (08:43)
[2018-09-11] MEDS: FERROUS SULFATE 325 MG TABLET.DR PO SCH ×2 (08:43→20:39)
[2018-09-11] MEDS: METOPROLOL TARTRATE 50 MG TAB PO SCH ×2 (08:43→20:39)
[2018-09-11] MEDS: PANTOPRAZOLE 40 MG/VIAL IVP SCH (08:43)
[2018-09-11] MEDS: LINAGLIPTIN 5 MG TABLET PO SCH (08:44)
[2018-09-11] MEDS: GABAPENTIN 100 MG CAPSULE PO SCH (08:44)
[2018-09-11 12:00] VITALS: BP 137/57
--- NOTE | 2018-09-11 12:30 | NUR ---
Pt has Dr. Dickens on the case, but no notes dictated from this MD. Clarified with Dr. Sen. He states that Gi is aware of consult, but has no plans for intervention at present due to pt having had multiple scopes for the same issue in the past. Dr. Sen stated that he will recheck CBC in am and will re evaluate from there.
[2018-09-11 16:00] VITALS: BP 135/72
[2018-09-11 20:00] VITALS: BP 134/63
[2018-09-11] MEDS: MIRTAZAPINE 15 MG TABLET PO SCH (20:39)
[2018-09-11] MEDS: ATORVASTATIN CALCIUM 10 MG TABLET PO SCH (20:39)
[2018-09-11] MEDS: TORSEMIDE 20 MG TAB PO SCH (20:39)
[2018-09-11 23:34] VITALS: BP 145/64
[2018-09-12 03:19] VITALS: BP 137/63
[2018-09-12 05:37] LABS: HEMATOCRIT 29.9 % (36-48); MEAN CORPUSCULAR HEMOGLOBIN 31.6 pg (27.0-33.0); MEAN CORPUSCULAR HGB CONC 34.1 g/dL (32.0-36.0); MEAN CORPUSCULAR VOLUME 92.9 fL (79-99); PLATELET COUNT (AUTO) 176 K/uL (130-400); RED BLOOD CELL COUNT(AUTO) 3.22 MIL/uL (4.00-5.50); RED CELL DISTRIBUTION WIDTH 16.2 % (11.0-15.5)
[2018-09-12] MEDS: INSULIN HUMULIN R 100 UNIT/ML 3ML SQ SCH ×2 (06:17→11:30)
[2018-09-12 06:22] LABS: BAND NEUTROPHILS % (MANUAL) 1 % (0-2); BASOPHILS % (MANUAL) 3 % (0-2); EOSINOPHILS % (MANUAL) 5 % (1-6); LYMPHOCYTES % (MANUAL) 7 % (22-44); MAN.DIFF COMMENT-IMPRESSION MANUAL DIFFERENTIAL; MONOCYTES % (MANUAL) 4 % (2-9); SEGMENTED NEUTROPHILS % 80 % (40-70)
[2018-09-12 06:23] LABS: PLATELET MORPHOLOGY COMMENT ADEQUATE
--- NOTE | 2018-09-12 08:00 | NUR ---
PATIENT UPDATE SLEPT BETTER LAST NIGHT AFTER SHE WAS GIVEN TRAMADOL FOR GEN DISCOMFORT WHICH AFFORDED RELIEF. HAPPY WITH THE BETTER LAB RESULT THIS AM, LOOKING FORWARD TOWARDS DISCHARGE THIS AM.
[2018-09-12 08:15] VITALS: BP 139/62
[2018-09-12] MEDS: PANTOPRAZOLE SODIUM 40 MG TABLET.DR PO SCH (08:16)
[2018-09-12] MEDS: METOPROLOL TARTRATE 50 MG TAB PO SCH (08:16)
[2018-09-12] MEDS: FOLIC ACID 1 MG TABLET PO SCH (08:16)
[2018-09-12] MEDS: FOLIC ACID/VITAMIN B COMP W-C 1 MG CAPSULE PO SCH (08:16)
[2018-09-12] MEDS: GABAPENTIN 100 MG CAPSULE PO SCH (08:16)
[2018-09-12] MEDS: PANTOPRAZOLE 40 MG/VIAL IVP SCH (08:16)
[2018-09-12] MEDS: SUCRALFATE 1 GM TABLET PO SCH ×2 (08:16→11:42)
[2018-09-12] MEDS: FERROUS SULFATE 325 MG TABLET.DR PO SCH (08:16)
[2018-09-12] MEDS: LINAGLIPTIN 5 MG TABLET PO SCH (08:17)
[2018-09-12 11:00] VITALS: BP 121/57
--- NOTE | 2018-09-12 14:35 | NUR ---
As per admission database, pt rec'd flu shot in Mar 2018. Addendum: 09/12/18 at 1436 by SELIN DOCKERY RN RN Amended: Links added.
--- NOTE | 2018-09-12 15:15 | NUR ---
Discharge teaching completed in the room with pt and visitor at side. Emphasis on dx and s/s to monitor for, when to seek emergency care vs dial 911. Pt is to make follow up appts with Dr. Trixie Muniz and Dr. Sen this week, pt stated she wants to get referral to GI of choice from Dr. Sen. No new rx. Portacath access removed, tip intact, no bleeding. Dressed with bandaid. Pt escorted to [facility] by [facility] staff for transport home via private car. Pt in stable condition at time of discharge.
== END 2018-09-12 15:10 | disposition home or self-care (01) | DRG 378 ==
LOC: EDH 08:50 → EDHIP 10:42 → 4CH 16:19
PROVIDERS: ADMIT Internal Medicine Nephrology; ATTEND Internal Medicine Nephrology
PROC: 30233N1 Transfusion of Nonautologous Red Blood Cells into Peripheral Vein, Percutaneous Approach (ICD-10-PCS; principal; 2018-09-09)
DX: K92.2 Gastrointestinal hemorrhage, unspecified (principal); C92.10 Chronic myeloid leukemia, BCR/ABL-positive, not having achieved remission; N17.9 Acute kidney failure, unspecified; N18.9 Chronic kidney disease, unspecified; E11.21 Type 2 diabetes mellitus with diabetic nephropathy; E11.51 Type 2 diabetes mellitus with diabetic peripheral angiopathy without gangrene; E11.22 Type 2 diabetes mellitus with diabetic chronic kidney disease; D64.9 Anemia, unspecified; I25.10 Atherosclerotic heart disease of native coronary artery without angina pectoris; R62.7 Adult failure to thrive; I12.9 Hypertensive chronic kidney disease with stage 1 through stage 4 chronic kidney disease, or unspecified chronic kidney disease; Z95.2 Presence of prosthetic heart valve; Z95.1 Presence of aortocoronary bypass graft; Z90.710 Acquired absence of both cervix and uterus; Z88.6 Allergy status to analgesic agent; Z88.0 Allergy status to penicillin; Z80.42 Family history of malignant neoplasm of prostate
CPT/HCPCS: 36415; 36430; 78278; 80048; 80053; 82270; 82948; 83735; 84100; 84443; 85014; 85018; 85025; 85610; 85730; 86850; 86900; 86901; 86922; A9512; C9113; G0378; J7040; P9016

== ENCOUNTER → 2018-11-26 | Outpatient (CLI) | payer OTHER ==
[~2018-11-26] MED LIST changes: +CHOL200012 PO; +FOLI1TAB15 PO; +GABA-529 PO; +IMAT400T8 PO; -ROSU5TAB11 PO; +ROSU5TAB12 PO; -SENN1TAB53 PO; +SITA25TA5 PO; +SUCR1TAB2 PO
== END | disposition home or self-care (01) ==
LOC: SHCH 14:21
PROVIDERS: ATTEND Internal Medicine Cardiovascular Disease
DX: I05.1 Rheumatic mitral insufficiency (principal); I27.20 Pulmonary hypertension, unspecified; I10 Essential (primary) hypertension; E78.00 Pure hypercholesterolemia, unspecified; E11.9 Type 2 diabetes mellitus without complications; Z95.3 Presence of xenogenic heart valve; Z86.2 Personal history of diseases of the blood and blood-forming organs and certain disorders involving the immune mechanism
CPT/HCPCS: 93306

== ENCOUNTER → 2019-08-25 | Outpatient (CLI) | payer OTHER ==
[~2019-08-25] MED LIST changes: -IMAT400T8 PO; -SENN-197 PO; -SITA50TA PO
== END | disposition home or self-care (01) ==
LOC: RAH 13:20
PROVIDERS: ATTEND Internal Medicine
DX: K62.5 Hemorrhage of anus and rectum (principal); D50.9 Iron deficiency anemia, unspecified
CPT/HCPCS: 78278; A9512

== ENCOUNTER 2019-09-03 11:48 | Inpatient (IN) | payer OTHER ==
[~2019-09-03] VITALS: Ht 162.6 cm; Wt 72.8 kg
[2019-09-03] MEDS ORDERED: MORPHINE SULFATE 2 MG/ML 1ML SYG ONE ×2 (14:13→23:13)
[2019-09-03] MEDS ORDERED: ASPIRIN 325 MG TABLET ONE (14:13)
[2019-09-03] MEDS ORDERED: ONDANSETRON HCL 4 MG/2 ML VIAL ONE (14:13)
[2019-09-03] MEDS ORDERED: FAMOTIDINE/PF 20 MG/2 ML VIAL IV ONE (14:14)
[2019-09-03 14:22] LABS: INR 1.02 (0.85-1.15); PROTHROMBIN TIME 10.7 SEC (9.6-11.6)
[2019-09-03 14:26] LABS: BASOPHILS % (AUTO) 0.7 % (0.0-5.0); EOSINOPHILS % (AUTO) 2.3 % (0.0-8.0); LYMPHOCYTES % (AUTO) 5.1 % (21.0-51.0); MEAN CORPUSCULAR HEMOGLOBIN 27.7 pg (27.0-33.0); MEAN CORPUSCULAR HGB CONC 30.3 g/dL (32.0-36.0); MEAN CORPUSCULAR VOLUME 91.5 fL (79-99); MONOCYTES % (AUTO) 2.2 % (3.0-13.0); NEUTROPHILS % (AUTO) 88.5 % (40.0-77.0); RED BLOOD CELL COUNT(AUTO) 3.28 MIL/uL (4.00-5.50); RED CELL DISTRIBUTION WIDTH 18.5 % (11.0-15.5)
[2019-09-03 14:31] LABS: CREATININE 1.9 mg/dL (0.5-1.5); PLATELET COUNT (AUTO) 901 K/uL (130-400); POTASSIUM 4.2 mmol/L (3.5-5.1); WHITE BLOOD COUNT (AUTO) 33.4 K/uL (4.8-10.8)
[2019-09-03 14:34] LABS: BAND NEUTROPHILS % (MANUAL) 2 % (0-2); LYMPHOCYTES % (MANUAL) 2 % (22-44); MAN.DIFF COMMENT-IMPRESSION MANUAL DIFFERENTIAL; PLATELET MORPHOLOGY COMMENT INCREASED; SEGMENTED NEUTROPHILS % 96 % (40-70)
[2019-09-03 14:38] LABS: ALBUMIN 3.2 g/dL (3.5-5.0); BILIRUBIN,TOTAL 0.4 mg/dL (0.2-1.0); TOTAL PROTEIN, SERUM 5.9 g/dL (6.0-8.3)
[2019-09-03 14:56] LABS: PARTIAL THROMBOPLASTIN TIME > 120.0 SEC (26.3-35.5)
[2019-09-03] MEDS ORDERED: MORPHINE SULFATE 4 MG/1ML SYG ONE (16:02)
[2019-09-03] MEDS ORDERED: SODIUM CHLORIDE 0.9% 1000ML 1,000 ML IV ONE ×2 (16:50→20:15)
[2019-09-03] MEDS: SODIUM CHLORIDE 0.9% 1000ML 1,000 ML IV SCH (18:10)
[2019-09-03] MEDS ORDERED: HYDRALAZINE HCL 20 MG/ML VIAL IV PRN (18:15)
[2019-09-03] MEDS ORDERED: ONDANSETRON HCL 4 MG/2 ML VIAL IV PRN (18:15)
[2019-09-03] MEDS ORDERED: ACETAMINOPHEN 325 MG TAB PO PRN (18:15)
[2019-09-03] MEDS: FAMOTIDINE/PF 20 MG/2 ML VIAL IV SCH (21:00)
[2019-09-03] MEDS ORDERED: MORPHINE SULFATE 2 MG/ML 1ML SYG IVP ONE ×2 (21:30→23:15)
[2019-09-03] MEDS ORDERED: DEXTROSE 50%-WATER 50 ML DISP.SYRIN IV PRN (21:45)
[2019-09-03] MEDS: INSULIN HUMULIN R 100 UNIT/ML 3ML SQ SCH (21:45)
[2019-09-03] MEDS ORDERED: GLUCAGON 1MG KIT 1 MG ML IM PRN (21:45)
--- NOTE | 2019-09-03 22:30 | NUR ---
PATIENT ARRIVED ON UNIT. C/O CHEST PAIN AND SOB. PLACED ON 2L NC. MEDICAL OFFICE SUPERVISOR CALLED FOR PAIN MEDICATION. PATIENT IS PALE IN COLOR. NO OPEN WOUNDS. NO NAUSEA AT THIS TIME. PATIENT WAS TOLD STOOL SAMPLE NEEDED. WILL COLLECT IF HAS BM. RIGHT UPPER CHEST PORT IN PLACE. NO REDNESS OR S/S OF INFECTION TO PORT. WILL CONTINUE TO MONITOR. GI CONSULT IN AM FOR BLOODY EMESIS.
[2019-09-03 23:00] VITALS: BP 101/44
[2019-09-03] MEDS ORDERED: OMEP40CA13 PO (23:00)
--- NOTE | 2019-09-03 23:01 | NUR ---
MERCURY PURIFIER MASON PAGED FOR PAIN MEDICATION
[2019-09-04] VITALS (18 sets, daily range): BP systolic 105–136; BP diastolic 33–75
[2019-09-04] MEDS: INSULIN HUMULIN R 100 UNIT/ML 3ML SQ SCH ×4 (06:52→21:00)
[2019-09-04] MEDS: SODIUM CHLORIDE 0.9% 1000ML 1,000 ML IV SCH (07:30)
[2019-09-04] MEDS ORDERED: LEVOFLOXACIN 250 MG/D5W 50ML 50 ML IV SCH (10:00)
[2019-09-04] MEDS ORDERED: PROPOFOL 10 MG/ML 20ML VIAL IV ONE (10:23)
[2019-09-04] MEDS ORDERED: METOCLOPRAMIDE 10 MG/2 ML VIAL ONE (11:13)
[2019-09-04] MEDS ORDERED: PANTOPRAZOLE SODIUM 40 MG TABLET.DR PO SCH (11:28)
[2019-09-04] MEDS: SUCRALFATE 1 GM TABLET PO SCH ×2 (11:54→16:49)
[2019-09-04 12:20] LABS: BASOPHILS % (AUTO) 0.6 % (0.0-5.0); EOSINOPHILS % (AUTO) 4.9 % (0.0-8.0); LYMPHOCYTES % (AUTO) 2.8 % (21.0-51.0); MEAN CORPUSCULAR HEMOGLOBIN 27.9 pg (27.0-33.0); MEAN CORPUSCULAR HGB CONC 29.9 g/dL (32.0-36.0); MEAN CORPUSCULAR VOLUME 93.2 fL (79-99); MONOCYTES % (AUTO) 2.4 % (3.0-13.0); NEUTROPHILS % (AUTO) 88.7 % (40.0-77.0); PLATELET COUNT (AUTO) 547 K/uL (130-400); RED BLOOD CELL COUNT(AUTO) 2.19 MIL/uL (4.00-5.50); RED CELL DISTRIBUTION WIDTH 18.7 % (11.0-15.5); WHITE BLOOD COUNT (AUTO) 25.4 K/uL (4.8-10.8)
[2019-09-04] MEDS: PANTOPRAZOLE SODIUM 40 MG TABLET.DR PO SCH ×2 (12:39→21:02)
[2019-09-04 12:42] LABS: ALBUMIN 2.6 g/dL (3.5-5.0); BILIRUBIN,TOTAL 0.3 mg/dL (0.2-1.0); CREATININE 1.6 mg/dL (0.5-1.5); POTASSIUM 4.5 mmol/L (3.5-5.1)
[2019-09-04 13:11] LABS: INR 1.05 (0.85-1.15); PARTIAL THROMBOPLASTIN TIME 30.5 SEC (26.3-35.5)
[2019-09-04 13:19] LABS: HEMATOCRIT 20.4 % (36-48)
[2019-09-04] MEDS ORDERED: SODIUM CHLORIDE 0.9% 250 ML IV ONE (16:32)
[2019-09-04] MEDS ORDERED: METOCLOPRAMIDE 10 MG/2 ML VIAL IVP SCH ×2 (17:00→23:00)
--- NOTE | 2019-09-04 17:13 | NUR ---
D/C PLAN CM spoke to pt regarding d/c planning. Pt lives with spouse. States she has private caregiver assisting in care. Pt has wk, w/c, and home o2. CM offered short term snf/rehab. Pt declined. Pt agreed to referral to DAD's for more assistance. No other needs verbalized or identified. Plan to home. CM to f/u. Addendum: 09/04/19 at 1715 by JENNIFER SALAMANCA CM Amended: Links added.
[2019-09-04] MEDS: FAMOTIDINE/PF 20 MG/2 ML VIAL IV SCH (21:02)
[2019-09-04] MEDS: MIRTAZAPINE 15 MG TABLET PO SCH (21:02)
[2019-09-04] MEDS: ATORVASTATIN CALCIUM 10 MG TABLET PO SCH (21:02)
[2019-09-05] VITALS (7 sets, daily range): BP systolic 114–147; BP diastolic 41–61
[2019-09-05] MEDS: SODIUM CHLORIDE 0.9% 1000ML 1,000 ML IV SCH ×2 (03:53→17:39)
[2019-09-05 04:52] LABS: EOSINOPHILS % (AUTO) 7.5 % (0.0-8.0); HEMATOCRIT 28.6 % (36-48); LYMPHOCYTES % (AUTO) 2.6 % (21.0-51.0); MEAN CORPUSCULAR HEMOGLOBIN 29.2 pg (27.0-33.0); MEAN CORPUSCULAR HGB CONC 31.8 g/dL (32.0-36.0); MEAN CORPUSCULAR VOLUME 91.7 fL (79-99); MONOCYTES % (AUTO) 2.3 % (3.0-13.0); NEUTROPHILS % (AUTO) 85.8 % (40.0-77.0); PLATELET COUNT (AUTO) 395 K/uL (130-400); RED BLOOD CELL COUNT(AUTO) 3.12 MIL/uL (4.00-5.50); RED CELL DISTRIBUTION WIDTH 16.6 % (11.0-15.5); WHITE BLOOD COUNT (AUTO) 19.8 K/uL (4.8-10.8)
[2019-09-05 05:12] LABS: ALBUMIN 2.7 g/dL (3.5-5.0); BILIRUBIN,TOTAL 1.2 mg/dL (0.2-1.0); CREATININE 1.4 mg/dL (0.5-1.5); POTASSIUM 4.2 mmol/L (3.5-5.1); TOTAL PROTEIN, SERUM 5.2 g/dL (6.0-8.3)
[2019-09-05] MEDS ORDERED: FUROSEMIDE 10 MG/ML 4ML VIAL IV STA (06:24)
[2019-09-05] MEDS ORDERED: FUROSEMIDE 10 MG/ML 4ML VIAL IV SCH ×2 (06:30→10:30)
[2019-09-05] MEDS ORDERED: FUROSEMIDE 10 MG/ML 4ML VIAL ONE (06:35)
[2019-09-05] MEDS: INSULIN HUMULIN R 100 UNIT/ML 3ML SQ SCH ×4 (06:49→20:53)
[2019-09-05] MEDS: SUCRALFATE 1 GM TABLET PO SCH ×3 (07:09→17:00)
--- NOTE | 2019-09-05 07:35 | NUR ---
ASSESSMENT ENCOUNTERED PT IN SEMI ANNA'S POSITION, A&OX3, C/O SOB AND INABILITY TO LAY FLAT, PT REPOSITIONED TO SIDE OF BED IN ORTHOPNEIC POSITION, PT STATES SHE IS ABLE TO BREATH BETTER. DR CASPER LARSON AND DR NY NOTIFIED, PT CONTINUES TO BE NPO PENDING EGD BY DR LARSON. CALL LIGHT WITHIN REACH, FAMILY AT BEDSIDE.
[2019-09-05] MEDS: PANTOPRAZOLE SODIUM 40 MG TABLET.DR PO SCH ×2 (09:00→20:52)
[2019-09-05] MEDS: FOLIC ACID 1 MG TABLET PO SCH (09:00)
[2019-09-05] MEDS: GABAPENTIN 100 MG CAPSULE PO SCH (09:00)
[2019-09-05 18:54] LABS: HEMATOCRIT 29.9 % (36-48)
[2019-09-05] MEDS: ATORVASTATIN CALCIUM 10 MG TABLET PO SCH (20:52)
[2019-09-05] MEDS: FAMOTIDINE/PF 20 MG/2 ML VIAL IV SCH (20:53)
[2019-09-05] MEDS: MIRTAZAPINE 15 MG TABLET PO SCH (20:53)
[2019-09-06] VITALS (19 sets, daily range): BP systolic 107–153; BP diastolic 48–77
[2019-09-06] MEDS: SUCRALFATE 1 GM TABLET PO SCH ×3 (05:43→17:04)
[2019-09-06 05:48] LABS: BASOPHILS % (AUTO) 1.2 % (0.0-5.0); HEMATOCRIT 29.2 % (36-48); LYMPHOCYTES % (AUTO) 2.8 % (21.0-51.0); MEAN CORPUSCULAR HEMOGLOBIN 29.2 pg (27.0-33.0); MEAN CORPUSCULAR HGB CONC 32.2 g/dL (32.0-36.0); MEAN CORPUSCULAR VOLUME 90.7 fL (79-99); MONOCYTES % (AUTO) 2.5 % (3.0-13.0); NEUTROPHILS % (AUTO) 85.7 % (40.0-77.0); PLATELET COUNT (AUTO) 455 K/uL (130-400); RED BLOOD CELL COUNT(AUTO) 3.22 MIL/uL (4.00-5.50); RED CELL DISTRIBUTION WIDTH 16.7 % (11.0-15.5); WHITE BLOOD COUNT (AUTO) 19.7 K/uL (4.8-10.8)
[2019-09-06] MEDS: INSULIN HUMULIN R 100 UNIT/ML 3ML SQ SCH ×4 (05:50→20:30)
[2019-09-06 06:02] LABS: B-TYPE NATRIURETIC PEPTIDE 412 pg/mL (0-100)
[2019-09-06 06:27] LABS: BILIRUBIN,TOTAL 0.8 mg/dL (0.2-1.0); CREATININE 1.3 mg/dL (0.5-1.5); PHOSPHORUS 3.2 mg/dL (2.5-4.9); POTASSIUM 3.9 mmol/L (3.5-5.1); TOTAL PROTEIN, SERUM 5.7 g/dL (6.0-8.3)
--- NOTE | 2019-09-06 07:45 | NUR ---
ASSESSMENT ENCOUNTERED PT AMBULATING FROM BATHROOM, GAIT SLOW BUT STEADY WITH 1-2 PERSON ASSIST, PT IS A&OX3, CALM COOPERATIVE AND DOES NOT APPEAR TO BE IN ANY DISTRESS NOR ANY NEURO DEFICITS PRESENT. PT DENIES PAIN, SOB, NAUSEA. PORT-A-CATH TO [facility], SITE DRY AND INTACT, PT IS NPO PENDING EGD BY DR VAUGHN. CALL LIGHT WITHIN REACH, FAMILY AT BEDSIDE.
[2019-09-06] MEDS: GABAPENTIN 100 MG CAPSULE PO SCH (09:00)
[2019-09-06] MEDS: FOLIC ACID 1 MG TABLET PO SCH (09:00)
[2019-09-06] MEDS: PANTOPRAZOLE SODIUM 40 MG TABLET.DR PO SCH ×2 (09:00→20:30)
[2019-09-06] MEDS ORDERED: LEVOFLOXACIN 250 MG/D5W 50ML 50 ML IV SCH (09:00)
[2019-09-06] MEDS ORDERED: PROPOFOL 10 MG/ML 20ML VIAL IV ONE (11:08)
[2019-09-06] MEDS ORDERED: EPINEPHRINE 1 MG/ML AMPULE ONE (11:16)
[2019-09-06] MEDS ORDERED: IPRATROPIUM/ALBUTEROL SULFATE 3 ML SOLUTION IH ONE (11:44)
[2019-09-06] MEDS: SODIUM CHLORIDE 0.9% 1000ML 1,000 ML IV SCH (13:39)
[2019-09-06] MEDS: ALBUTEROL SULFATE 0.083% 2.5 MG/3 ML INH IH PRN (19:03)
[2019-09-06] MEDS: FAMOTIDINE/PF 20 MG/2 ML VIAL IV SCH (20:30)
[2019-09-06] MEDS: MIRTAZAPINE 15 MG TABLET PO SCH (20:30)
[2019-09-06] MEDS: ATORVASTATIN CALCIUM 10 MG TABLET PO SCH (20:30)
[2019-09-06] MEDS: METOPROLOL TARTRATE 50 MG TAB PO SCH (20:30)
[2019-09-07 03:45] VITALS: BP 128/54
[2019-09-07 04:18] LABS: EOSINOPHILS % (AUTO) 5.4 % (0.0-8.0); LYMPHOCYTES % (AUTO) 2.5 % (21.0-51.0); MEAN CORPUSCULAR HEMOGLOBIN 29.3 pg (27.0-33.0); MEAN CORPUSCULAR HGB CONC 31.5 g/dL (32.0-36.0); MEAN CORPUSCULAR VOLUME 93.1 fL (79-99); MONOCYTES % (AUTO) 2.6 % (3.0-13.0); NEUTROPHILS % (AUTO) 87.8 % (40.0-77.0); PLATELET COUNT (AUTO) 347 K/uL (130-400); RED CELL DISTRIBUTION WIDTH 16.5 % (11.0-15.5); WHITE BLOOD COUNT (AUTO) 15.4 K/uL (4.8-10.8)
[2019-09-07 04:38] LABS: B-TYPE NATRIURETIC PEPTIDE 460 pg/mL (0-100)
[2019-09-07 04:49] LABS: ALBUMIN 2.6 g/dL (3.5-5.0); BILIRUBIN,TOTAL 0.6 mg/dL (0.2-1.0); CREATININE 1.1 mg/dL (0.5-1.5); MAGNESIUM 2.2 mg/dL (1.80-2.40); PHOSPHORUS 3.2 mg/dL (2.5-4.9); POTASSIUM 3.6 mmol/L (3.5-5.1); TOTAL PROTEIN, SERUM 5.2 g/dL (6.0-8.3)
[2019-09-07] MEDS: SODIUM CHLORIDE 0.9% 1000ML 1,000 ML IV SCH (06:06)
[2019-09-07] MEDS: SUCRALFATE 1 GM TABLET PO SCH ×2 (06:06→12:10)
[2019-09-07] MEDS: INSULIN HUMULIN R 100 UNIT/ML 3ML SQ SCH ×2 (06:07→11:30)
[2019-09-07] MEDS: ALBUTEROL SULFATE 0.083% 2.5 MG/3 ML INH IH PRN (06:27)
[2019-09-07 08:21] VITALS: BP 136/62
[2019-09-07] MEDS ORDERED: TORSEMIDE 20 MG TAB PO SCH (09:00)
[2019-09-07] MEDS: FOLIC ACID 1 MG TABLET PO SCH (09:21)
[2019-09-07] MEDS: PANTOPRAZOLE SODIUM 40 MG TABLET.DR PO SCH (09:21)
[2019-09-07] MEDS: METOPROLOL TARTRATE 50 MG TAB PO SCH (09:21)
[2019-09-07] MEDS: GABAPENTIN 100 MG CAPSULE PO SCH (09:21)
[2019-09-07] MEDS ORDERED: PANT40TA PO (11:21)
[2019-09-07 12:00] VITALS: BP 143/59
--- NOTE | 2019-09-07 13:44 | NUR ---
[id number] patient signed IM Letter, I faxed IM Letter to [phone] and placed in chart under consent tab. Patient had questions regarding her 's stay and billing, I advised her to call the business office at [phone].
[2019-09-07] MEDS ORDERED: HEPARIN SODIUM/PF 100UNIT/ML 5ML SYRINGE IV SCH (14:15)
--- NOTE | 2019-09-07 14:42 | NUR ---
DISCHARGE DISCHARGE INSTRUCTIONS GIVEN TO PATIENT, VERBALIZED UNDERSTANDING. NEW PRESCRIPTION FOR PROTONIX SENT TO [facility]. DE ACCESSED PORTACATH AND HEPLOCKED WITH 300 UNITS OF HEP FLUSH. DISCONTINUED TELE MONITORING.
== END 2019-09-07 14:30 | disposition home or self-care (01) | DRG 377 ==
LOC: EDH 11:48 → EDHIP 18:10 → 2AH 22:22
PROVIDERS: ADMIT Hospitalist; ATTEND Hospitalist
PROC: 0W3P8ZZ Control Bleeding in Gastrointestinal Tract, Via Natural or Artificial Opening Endoscopic (ICD-10-PCS; 2019-09-04)
PROC: 0DJ08ZZ Inspection of Upper Intestinal Tract, Via Natural or Artificial Opening Endoscopic (ICD-10-PCS; 2019-09-04)
PROC: 30233N1 Transfusion of Nonautologous Red Blood Cells into Peripheral Vein, Percutaneous Approach (ICD-10-PCS; principal; 2019-09-06)
DX: K31.811 Angiodysplasia of stomach and duodenum with bleeding (principal); I50.31 Acute diastolic (congestive) heart failure; D62 Acute posthemorrhagic anemia; J90 Pleural effusion, not elsewhere classified; I24.8 Other forms of acute ischemic heart disease; C92.10 Chronic myeloid leukemia, BCR/ABL-positive, not having achieved remission; I13.0 Hypertensive heart and chronic kidney disease with heart failure and stage 1 through stage 4 chronic kidney disease, or unspecified chronic kidney disease; N18.9 Chronic kidney disease, unspecified; E11.22 Type 2 diabetes mellitus with diabetic chronic kidney disease; I50.9 Heart failure, unspecified; K29.01 Acute gastritis with bleeding; E78.00 Pure hypercholesterolemia, unspecified; E78.5 Hyperlipidemia, unspecified; I25.10 Atherosclerotic heart disease of native coronary artery without angina pectoris; K29.50 Unspecified chronic gastritis without bleeding; Z99.81 Dependence on supplemental oxygen; Z95.0 Presence of cardiac pacemaker; Z95.1 Presence of aortocoronary bypass graft; Z86.73 Personal history of transient ischemic attack (TIA), and cerebral infarction without residual deficits; Z90.710 Acquired absence of both cervix and uterus; Z86.14 Personal history of Methicillin resistant Staphylococcus aureus infection; Z83.3 Family history of diabetes mellitus; Z82.5 Family history of asthma and other chronic lower respiratory diseases; Z82.49 Family history of ischemic heart disease and other diseases of the circulatory system; Z82.3 Family history of stroke; Z82.0 Family history of epilepsy and other diseases of the nervous system; Z80.3 Family history of malignant neoplasm of breast; Z80.42 Family history of malignant neoplasm of prostate; Z88.5 Allergy status to narcotic agent; Z88.0 Allergy status to penicillin
CPT/HCPCS: 36415; 36430; 43235; 43270; 71045; 80053; 80061; 82270; 82550; 82948; 83690; 83735; 83880; 84100; 84145; 84484; 85014; 85018; 85025; 85610; 85730; 86850; 86900; 86901; 86922; 87046; 87177; 93005; 94640; 94664; G0378; J0171; J1642; J1940; J1956; J2270; J2405; J2704; J2765; J3490; J7030; P9016

== ENCOUNTER 2019-09-14 20:20 | Inpatient (IN) | payer OTHER ==
[~2019-09-14] VITALS: Ht 162.6 cm; Wt 69.3 kg
[~2019-09-14 20:20] MED LIST changes: +PANT40TA PO; -PANT40TA25 PO
[2019-09-14 22:28] LABS: BASOPHILS % (AUTO) 0.8 % (0.0-5.0); EOSINOPHILS % (AUTO) 3.3 % (0.0-8.0); HEMATOCRIT 21.8 % (36-48); LYMPHOCYTES % (AUTO) 3.9 % (21.0-51.0); MEAN CORPUSCULAR HEMOGLOBIN 29.7 pg (27.0-33.0); MEAN CORPUSCULAR HGB CONC 32.1 g/dL (32.0-36.0); MEAN CORPUSCULAR VOLUME 92.4 fL (79-99); MONOCYTES % (AUTO) 2.9 % (3.0-13.0); NEUTROPHILS % (AUTO) 88.2 % (40.0-77.0); PLATELET COUNT (AUTO) 309 K/uL (130-400); RED BLOOD CELL COUNT(AUTO) 2.36 MIL/uL (4.00-5.50); RED CELL DISTRIBUTION WIDTH 17.3 % (11.0-15.5); WHITE BLOOD COUNT (AUTO) 18.2 K/uL (4.8-10.8)
[2019-09-14 22:47] LABS: CREATININE 1.5 mg/dL (0.5-1.5); POTASSIUM 3.1 mmol/L (3.5-5.1)
[2019-09-14 22:50] LABS: ALBUMIN 3.1 g/dL (3.5-5.0); BILIRUBIN,TOTAL 0.5 mg/dL (0.2-1.0); TOTAL PROTEIN, SERUM 5.8 g/dL (6.0-8.3)
[2019-09-14 22:52] LABS: INR 1.01 (0.85-1.15); PARTIAL THROMBOPLASTIN TIME 38.6 SEC (26.3-35.5); PROTHROMBIN TIME 10.9 SEC (9.6-11.6)
[2019-09-15] VITALS (15 sets, daily range): BP systolic 81–150; BP diastolic 23–64
[2019-09-15] MEDS ORDERED: SODIUM CHLORIDE 0.9% 100 ML IV ONE (00:08)
[2019-09-15 04:41] LABS: BASOPHILS % (AUTO) 0.6 % (0.0-5.0); EOSINOPHILS % (AUTO) 4.7 % (0.0-8.0); LYMPHOCYTES % (AUTO) 4.5 % (21.0-51.0); MEAN CORPUSCULAR HEMOGLOBIN 29.3 pg (27.0-33.0); MEAN CORPUSCULAR HGB CONC 31.3 g/dL (32.0-36.0); MEAN CORPUSCULAR VOLUME 93.7 fL (79-99); MONOCYTES % (AUTO) 2.9 % (3.0-13.0); NEUTROPHILS % (AUTO) 86.5 % (40.0-77.0); PLATELET COUNT (AUTO) 250 K/uL (130-400); RED BLOOD CELL COUNT(AUTO) 2.22 MIL/uL (4.00-5.50); RED CELL DISTRIBUTION WIDTH 17.3 % (11.0-15.5)
[2019-09-15 04:50] LABS: HEMATOCRIT 20.8 % (36-48)
[2019-09-15 05:21] LABS: CREATININE 1.4 mg/dL (0.5-1.5)
[2019-09-15 11:45] LABS: HEMATOCRIT 24.9 % (36-48)
--- NOTE | 2019-09-15 12:54 | NUR ---
INITIAL SW met with patient and private sitter. Patient lives with spouse, Adam Muniz, [phone]. No home services but has private sitter. DME: glucometer (no insulin), O2 concentrator/portable. Private sitter does not remember the name of the company supplying O2. Patient needs help to complete ADL's and does not drive. Family or private sitter asst as needed. PCP is Dr. Dejesus. Pharmacy is [facility] located in [place]. DCP is home. Addendum: 09/15/19 at 1258 by FRANKLIN CORONADO SS Amended: Links added.
[2019-09-15] MEDS ORDERED: SODIUM CHLORIDE 0.9% 1000ML 1,000 ML IV SCH (17:45)
[2019-09-15] MEDS ORDERED: ACETAMINOPHEN 325 MG TAB PO PRN (17:45)
[2019-09-15] MEDS ORDERED: ONDANSETRON HCL 4 MG/2 ML VIAL IVP PRN (17:45)
[2019-09-15] MEDS: PANTOPRAZOLE SODIUM 80 MG in NS 100ML IVP SCH (18:03)
[2019-09-15] MEDS ORDERED: DASA70TA PO (19:43)
[2019-09-15] MEDS ORDERED: TRAMADOL HCL 50 MG TABLET PO PRN (19:45)
[2019-09-15] MEDS ORDERED: NON-FORMULARY MEDICATION 1 EACH (Ferrous Sulfate (Iron) 325 MG) PO SCH (21:00)
[2019-09-15] MEDS: FERROUS SULFATE 325 MG TABLET.DR PO SCH (22:08)
[2019-09-15] MEDS: MIRTAZAPINE 15 MG TABLET PO SCH (22:08)
[2019-09-15] MEDS: METOPROLOL TARTRATE 50 MG TAB PO SCH (22:08)
[2019-09-15 23:13] LABS: HEMATOCRIT 22.4 % (36-48)
[2019-09-15 23:28] LABS: MAGNESIUM 1.7 mg/dL (1.80-2.40); POTASSIUM 3.1 mmol/L (3.5-5.1)
[2019-09-16] MEDS: PANTOPRAZOLE SODIUM 80 MG in NS 100ML IVP SCH (03:17)
[2019-09-16 03:51] VITALS: BP 139/59
[2019-09-16 05:31] LABS: BASOPHILS % (AUTO) 0.7 % (0.0-5.0); EOSINOPHILS % (AUTO) 3.6 % (0.0-8.0); HEMATOCRIT 23.5 % (36-48); LYMPHOCYTES % (AUTO) 2.7 % (21.0-51.0); MEAN CORPUSCULAR HEMOGLOBIN 28.9 pg (27.0-33.0); MEAN CORPUSCULAR HGB CONC 31.1 g/dL (32.0-36.0); MEAN CORPUSCULAR VOLUME 92.9 fL (79-99); MONOCYTES % (AUTO) 2.5 % (3.0-13.0); NEUTROPHILS % (AUTO) 89.9 % (40.0-77.0); PLATELET COUNT (AUTO) 234 K/uL (130-400); RED BLOOD CELL COUNT(AUTO) 2.53 MIL/uL (4.00-5.50); RED CELL DISTRIBUTION WIDTH 19.6 % (11.0-15.5); WHITE BLOOD COUNT (AUTO) 14.3 K/uL (4.8-10.8)
[2019-09-16 05:36] LABS: CREATININE 1.2 mg/dL (0.5-1.5); POTASSIUM 3.4 mmol/L (3.5-5.1)
[2019-09-16 07:54] VITALS: BP 145/70
[2019-09-16] MEDS: LINAGLIPTIN 5 MG TABLET PO SCH (08:47)
[2019-09-16] MEDS: FOLIC ACID 1 MG TABLET PO SCH (08:47)
[2019-09-16] MEDS: METOPROLOL TARTRATE 50 MG TAB PO SCH ×2 (08:47→21:00)
[2019-09-16] MEDS: FERROUS SULFATE 325 MG TABLET.DR PO SCH ×2 (08:47→22:01)
[2019-09-16] MEDS: TORSEMIDE 20 MG TAB PO SCH (08:48)
[2019-09-16] MEDS: FOLIC ACID/VITAMIN B COMP W-C 1 CAP TAB PO SCH (08:48)
[2019-09-16] MEDS: GABAPENTIN 100 MG CAPSULE PO SCH (08:48)
[2019-09-16] MEDS: SUCRALFATE 1 GM TABLET PO SCH ×3 (08:48→18:37)
[2019-09-16] MEDS: CHOLECALCIFEROL 2000 UNIT PO SCH (08:54)
[2019-09-16 11:35] VITALS: BP 142/60
--- NOTE | 2019-09-16 12:48 | NUR ---
Nutrition Intervention: Nutrition screen due to poor appetite. Pt. on 75gm CCD Renal Non Dialysis diet with poor p.o. intake, as per pt. Labs reviewed(Alb 3.1, BUN 28, GFR 45). sharath RODARTE. LBM: 09/14/2019. Recommendations: 1) Rec. Vanilla Glucerna BID with B'fast and dinner meals. 2) Continue to monitor pt's nutritional status. 3) Consult RD as nutrition concerns arise. Addendum: 09/16/19 at [address] Amended: Links added.
[2019-09-16] MEDS ORDERED: FUROSEMIDE 10 MG/ML 4ML VIAL IV STA (13:11)
[2019-09-16] MEDS ORDERED: POTASSIUM CHLORIDE 10% ELIXIR 20 MEQ/15 ML UDCUP PO PRN (13:15)
[2019-09-16] MEDS ORDERED: POTASSIUM CHLORIDE 10MEQ/100ML 100 ML IV PRN (13:15)
[2019-09-16] MEDS ORDERED: MAGNESIUM 2GM PREMIX 50ML 50 ML IV SCH (13:15)
[2019-09-16] MEDS ORDERED: LIDOCAINE HCL-MPF 1% 2ML VIAL IV PRN (13:15)
[2019-09-16] MEDS ORDERED: FUROSEMIDE 10 MG/ML 4ML VIAL IV SCH (13:30)
[2019-09-16] MEDS ORDERED: DEXAMETHASONE 10MG/ML 1ML VIAL 10 MG in SODIUM CHLORIDE 0.9% 50 ML IV PRN (15:15)
[2019-09-16 15:30] VITALS: BP 127/48
[2019-09-16 20:31] VITALS: BP 117/41
[2019-09-16] MEDS ORDERED: SODIUM CHLORIDE 0.9% 250 ML IV ONE (20:46)
[2019-09-16] MEDS: Rosuvastatin Calcium 5 MG PO SCH (21:00)
[2019-09-16] MEDS: DEXAMETHASONE SOD PHOSPHATE 10MG/ML 1ML VIAL IV SCH (22:03)
[2019-09-16] MEDS: MIRTAZAPINE 15 MG TABLET PO SCH (22:03)
--- NOTE | 2019-09-16 22:05 | NUR ---
PT BLOOD TRANSFUSION STARTED. ER CONSENT IN CHART. PT CURRENTLY HAS NO PAIN OR SOB. GIVEN DEXAMETHASONE PRIOR TO TRANSFUSION VIA PORTACATH OVER 5 MIN INFUSION. HG 7.3
[2019-09-17] VITALS (7 sets, daily range): BP systolic 92–159; BP diastolic 47–68
[2019-09-17 05:17] LABS: MEAN CORPUSCULAR HEMOGLOBIN 30.1 pg (27.0-33.0); MEAN CORPUSCULAR HGB CONC 32.5 g/dL (32.0-36.0); MEAN CORPUSCULAR VOLUME 92.7 fL (79-99); PLATELET COUNT (AUTO) 221 K/uL (130-400); RED BLOOD CELL COUNT(AUTO) 3.02 MIL/uL (4.00-5.50); RED CELL DISTRIBUTION WIDTH 17.6 % (11.0-15.5); WHITE BLOOD COUNT (AUTO) 13.1 K/uL (4.8-10.8)
[2019-09-17 05:47] LABS: CREATININE 1.4 mg/dL (0.5-1.5); MAGNESIUM 2.2 mg/dL (1.80-2.40); POTASSIUM 3.3 mmol/L (3.5-5.1)
[2019-09-17] MEDS: POTASSIUM CHLORIDE 20 MEQ ERTAB PO PRN ×2 (06:04→20:03)
[2019-09-17] MEDS: SUCRALFATE 1 GM TABLET PO SCH ×3 (06:04→16:12)
--- NOTE | 2019-09-17 07:45 | NUR ---
ASSESSMENT PT IS AAOX3 DENIES CP DENIES SOB DENIES NV NO COMPLAINTS AT THIS TIME SITTING UPRIGHT IN BED. AM MEDS GIVEN NO COMPLAINTS, ATE BREAKFAST, NO COMPLAINTS. CALL LIGHT WITHIN REACH.
[2019-09-17] MEDS: CHOLECALCIFEROL 2000 UNIT PO SCH (07:52)
[2019-09-17] MEDS: FOLIC ACID 1 MG TABLET PO SCH (07:54)
[2019-09-17] MEDS: METOPROLOL TARTRATE 50 MG TAB PO SCH ×2 (07:54→20:02)
[2019-09-17] MEDS: FOLIC ACID/VITAMIN B COMP W-C 1 CAP TAB PO SCH (07:54)
[2019-09-17] MEDS: GABAPENTIN 100 MG CAPSULE PO SCH (07:54)
[2019-09-17] MEDS: LINAGLIPTIN 5 MG TABLET PO SCH (07:54)
[2019-09-17] MEDS: TORSEMIDE 20 MG TAB PO SCH (07:54)
[2019-09-17] MEDS: FERROUS SULFATE 325 MG TABLET.DR PO SCH ×2 (07:54→20:02)
--- NOTE | 2019-09-17 11:00 | NUR ---
MD ROUNDS DR Juan SMITH AND DR ARANGO ROUNDED
[2019-09-17] MEDS: DEXAMETHASONE SOD PHOSPHATE 10MG/ML 1ML VIAL IV SCH (19:07)
[2019-09-17] MEDS: Rosuvastatin Calcium 5 MG PO SCH (20:02)
[2019-09-17] MEDS: MIRTAZAPINE 15 MG TABLET PO SCH (20:03)
[2019-09-18] VITALS: BP_SYST 104; BP_SYST 138; BP_DIAS 42; BP_DIAS 64
[2019-09-18 04:00] VITALS: BP 130/54
[2019-09-18 05:04] LABS: HEMATOCRIT 25.4 % (36-48); MEAN CORPUSCULAR HEMOGLOBIN 30.5 pg (27.0-33.0); MEAN CORPUSCULAR HGB CONC 32.7 g/dL (32.0-36.0); MEAN CORPUSCULAR VOLUME 93.4 fL (79-99); PLATELET COUNT (AUTO) 234 K/uL (130-400); RED BLOOD CELL COUNT(AUTO) 2.72 MIL/uL (4.00-5.50); RED CELL DISTRIBUTION WIDTH 17.7 % (11.0-15.5); WHITE BLOOD COUNT (AUTO) 14.2 K/uL (4.8-10.8)
[2019-09-18 05:13] LABS: CREATININE 1.3 mg/dL (0.5-1.5); POTASSIUM 3.2 mmol/L (3.5-5.1)
[2019-09-18] MEDS ORDERED: PANTOPRAZOLE SODIUM 40 MG TABLET.DR ONE (06:04)
[2019-09-18] MEDS: SUCRALFATE 1 GM TABLET PO SCH ×3 (06:08→16:07)
[2019-09-18] MEDS: PANTOPRAZOLE SODIUM 40 MG TABLET.DR PO SCH (06:08)
[2019-09-18] MEDS: POTASSIUM CHLORIDE 20 MEQ ERTAB PO PRN (06:08)
[2019-09-18 06:35] LABS: BAND NEUTROPHILS % (MANUAL) 8 % (0-2); BASOPHILS % (MANUAL) 2 % (0-2); EOSINOPHILS % (MANUAL) 2 % (1-6); LYMPHOCYTES % (MANUAL) 9 % (22-44); MAN.DIFF COMMENT-IMPRESSION MANUAL DIFFERENTIAL; MONOCYTES % (MANUAL) 1 % (2-9); PLATELET MORPHOLOGY COMMENT ADEQUATE; SEGMENTED NEUTROPHILS % 78 % (40-70)
[2019-09-18] MEDS: GABAPENTIN 100 MG CAPSULE PO SCH (07:05)
[2019-09-18] MEDS: LINAGLIPTIN 5 MG TABLET PO SCH (07:05)
[2019-09-18] MEDS: TORSEMIDE 20 MG TAB PO SCH (07:05)
[2019-09-18] MEDS: CHOLECALCIFEROL 2000 UNIT PO SCH (07:05)
[2019-09-18] MEDS: FOLIC ACID 1 MG TABLET PO SCH (07:05)
[2019-09-18] MEDS: FERROUS SULFATE 325 MG TABLET.DR PO SCH ×2 (07:05→20:43)
[2019-09-18] MEDS: METOPROLOL TARTRATE 50 MG TAB PO SCH ×2 (07:05→20:43)
[2019-09-18] MEDS: FOLIC ACID/VITAMIN B COMP W-C 1 CAP TAB PO SCH (07:05)
[2019-09-18 07:30] VITALS: BP 115/52
[2019-09-18 11:30] VITALS: BP 118/53
--- NOTE | 2019-09-18 12:30 | NUR ---
MD ROUNDS DR Juan SMITH AND DR ARANGO ROUNDED, SAW PATIENT. ORDERS RECEIVED.
[2019-09-18 15:30] VITALS: BP 114/61
[2019-09-18] MEDS: DEXAMETHASONE SOD PHOSPHATE 10MG/ML 1ML VIAL IV SCH (19:17)
[2019-09-18 20:13] VITALS: BP_SYST 132; BP_SYST 32; BP_DIAS 54
[2019-09-18] MEDS: MIRTAZAPINE 15 MG TABLET PO SCH (20:43)
[2019-09-18] MEDS: Rosuvastatin Calcium 5 MG PO SCH (20:44)
[2019-09-19] VITALS (10 sets, daily range): BP systolic 107–152; BP diastolic 38–74
[2019-09-19 05:16] LABS: HEMATOCRIT 26.8 % (36-48); MEAN CORPUSCULAR HGB CONC 31.3 g/dL (32.0-36.0); MEAN CORPUSCULAR VOLUME 95.7 fL (79-99); NUCLEATED RED BLOOD CELLS 0.5 % (0.0-0.19); PLATELET COUNT (AUTO) 233 K/uL (130-400); RED CELL DISTRIBUTION WIDTH 17.8 % (11.0-15.5); WHITE BLOOD COUNT (AUTO) 12.9 K/uL (4.8-10.8)
[2019-09-19 05:20] LABS: CREATININE 1.3 mg/dL (0.5-1.5); POTASSIUM 3.2 mmol/L (3.5-5.1)
[2019-09-19] MEDS: PANTOPRAZOLE SODIUM 40 MG TABLET.DR PO SCH (06:08)
[2019-09-19] MEDS: SUCRALFATE 1 GM TABLET PO SCH ×3 (06:08→16:33)
[2019-09-19 06:17] LABS: BAND NEUTROPHILS % (MANUAL) 6 % (0-2); BASOPHILS % (MANUAL) 4 % (0-2); EOSINOPHILS % (MANUAL) 10 % (1-6); LYMPHOCYTES % (MANUAL) 5 % (22-44); MAN.DIFF COMMENT-IMPRESSION MANUAL DIFFERENTIAL; PLATELET MORPHOLOGY COMMENT ADEQUATE; SEGMENTED NEUTROPHILS % 75 % (40-70)
[2019-09-19] MEDS: TORSEMIDE 20 MG TAB PO SCH (08:39)
[2019-09-19] MEDS: FOLIC ACID/VITAMIN B COMP W-C 1 CAP TAB PO SCH (08:39)
[2019-09-19] MEDS: LINAGLIPTIN 5 MG TABLET PO SCH (08:39)
[2019-09-19] MEDS: FOLIC ACID 1 MG TABLET PO SCH (08:40)
[2019-09-19] MEDS: POTASSIUM CHLORIDE 20 MEQ ERTAB PO PRN ×4 (08:40→20:01)
[2019-09-19] MEDS: METOPROLOL TARTRATE 50 MG TAB PO SCH ×2 (08:40→20:00)
[2019-09-19] MEDS: GABAPENTIN 100 MG CAPSULE PO SCH (08:40)
[2019-09-19] MEDS: FERROUS SULFATE 325 MG TABLET.DR PO SCH ×2 (08:40→20:01)
[2019-09-19] MEDS: CHOLECALCIFEROL 2000 UNIT PO SCH (08:46)
--- NOTE | 2019-09-19 14:39 | NUR ---
RD FOLLOW UP NOTE Pt tolerating 75gm, Renal non-dialysis diet order. Pt with fair PO intake (75%). Pt also reports drinking Glucerna, one in the evening. Food preferences updated to encourage PO intake. Possible weigh error, recommend re-weigh Pt. RD to continue to monitor. Please notify as concerns arise. Thank you. Addendum: 09/19/19 at [address] Amended: Links added.
[2019-09-19] MEDS: MIRTAZAPINE 15 MG TABLET PO SCH (20:01)
[2019-09-19] MEDS: Rosuvastatin Calcium 5 MG PO SCH (21:00)
[2019-09-19] MEDS: DEXAMETHASONE SOD PHOSPHATE 10MG/ML 1ML VIAL IV SCH (21:32)
[2019-09-20 03:32] VITALS: BP 128/53
[2019-09-20 04:30] LABS: HEMATOCRIT 26.1 % (36-48); MEAN CORPUSCULAR HEMOGLOBIN 29.8 pg (27.0-33.0); PLATELET COUNT (AUTO) 238 K/uL (130-400); RED BLOOD CELL COUNT(AUTO) 2.72 MIL/uL (4.00-5.50); RED CELL DISTRIBUTION WIDTH 17.7 % (11.0-15.5); WHITE BLOOD COUNT (AUTO) 12.8 K/uL (4.8-10.8)
[2019-09-20 05:05] LABS: CREATININE 1.5 mg/dL (0.5-1.5); POTASSIUM 3.9 mmol/L (3.5-5.1)
[2019-09-20] MEDS: SUCRALFATE 1 GM TABLET PO SCH ×3 (06:18→16:52)
[2019-09-20] MEDS: PANTOPRAZOLE SODIUM 40 MG TABLET.DR PO SCH (06:18)
[2019-09-20 08:17] VITALS: BP 136/56
[2019-09-20] MEDS: FERROUS SULFATE 325 MG TABLET.DR PO SCH (09:52)
[2019-09-20] MEDS: TORSEMIDE 20 MG TAB PO SCH (09:52)
[2019-09-20] MEDS: GABAPENTIN 100 MG CAPSULE PO SCH (09:52)
[2019-09-20] MEDS: LINAGLIPTIN 5 MG TABLET PO SCH (09:52)
[2019-09-20] MEDS: FOLIC ACID 1 MG TABLET PO SCH (09:52)
[2019-09-20] MEDS: METOPROLOL TARTRATE 50 MG TAB PO SCH (09:52)
[2019-09-20] MEDS: CHOLECALCIFEROL 2000 UNIT PO SCH (09:53)
[2019-09-20] MEDS: FOLIC ACID/VITAMIN B COMP W-C 1 CAP TAB PO SCH (09:53)
[2019-09-20 11:48] VITALS: BP 113/67
[2019-09-20 16:15] VITALS: BP 116/49
--- NOTE | 2019-09-20 16:28 | NUR ---
PATIENT STATES SHE IS ALREADY UP TO DATE WITH HER PNA AND FLU VACCINES; BOTH GIVEN IN MAR 2019 PER PATIENT.
--- NOTE | 2019-09-20 17:28 | NUR ---
PATIENT DISCHARGED HOME AT THIS TIME; NO NEW PRESCRIPTIONS; ALL DC INSTRUCTIONS GIVEN AND ALL QUESTIONS ANSWERED; PERMACATH FLUSHED AND ACCESS REMOVED; TELEPACK REMOVED
== END 2019-09-20 17:29 | disposition home or self-care (01) | DRG 377 ==
LOC: EDH 20:20 → EDHIP 09-15 00:20 → 2AH 09-15 13:42
PROVIDERS: ADMIT Internal Medicine Nephrology; ATTEND Internal Medicine Nephrology
PROC: 30233N1 Transfusion of Nonautologous Red Blood Cells into Peripheral Vein, Percutaneous Approach (ICD-10-PCS; principal; 2019-09-20)
PROC: 0W3P8ZZ Control Bleeding in Gastrointestinal Tract, Via Natural or Artificial Opening Endoscopic (ICD-10-PCS; 2019-09-20)
DX: K31.811 Angiodysplasia of stomach and duodenum with bleeding (principal); N18.6 End stage renal disease; C95.10 Chronic leukemia of unspecified cell type not having achieved remission; I13.2 Hypertensive heart and chronic kidney disease with heart failure and with stage 5 chronic kidney disease, or end stage renal disease; N17.9 Acute kidney failure, unspecified; K44.9 Diaphragmatic hernia without obstruction or gangrene; K25.4 Chronic or unspecified gastric ulcer with hemorrhage; D64.9 Anemia, unspecified; D50.0 Iron deficiency anemia secondary to blood loss (chronic); E11.22 Type 2 diabetes mellitus with diabetic chronic kidney disease; E11.51 Type 2 diabetes mellitus with diabetic peripheral angiopathy without gangrene; I25.10 Atherosclerotic heart disease of native coronary artery without angina pectoris; I50.9 Heart failure, unspecified; R62.7 Adult failure to thrive; Z90.710 Acquired absence of both cervix and uterus; Z95.1 Presence of aortocoronary bypass graft; Z99.81 Dependence on supplemental oxygen; Z88.5 Allergy status to narcotic agent; Z88.0 Allergy status to penicillin
CPT/HCPCS: 36415; 36430; 43255; 45388; 71045; 80048; 80053; 82550; 82948; 83605; 83690; 83735; 84132; 84484; 85014; 85018; 85025; 85027; 85610; 85730; 86850; 86900; 86901; 86922; 93005; 97039; C9113; G0378; J1100; J1940; J2704; J3475; J7030; P9016

== ENCOUNTER → 2019-09-15 | Outpatient (CLI) | payer OTHER ==
[~2019-09-15] MED LIST changes: +DASA70TA PO; +FOLI1TAB61 PO; +METO50 PO; +OMEP40CA13 PO; +PROPOFOL 10 MG/ML 20ML VIAL IV ONE
== END | disposition home or self-care (01) ==
LOC: DAH 10:00 → EDSTATUS 18:57
PROVIDERS: ATTEND Internal Medicine Gastroenterology
DX: K92.1 Melena (principal); K31.811 Angiodysplasia of stomach and duodenum with bleeding; D50.9 Iron deficiency anemia, unspecified; N18.9 Chronic kidney disease, unspecified; Z88.0 Allergy status to penicillin; Z88.5 Allergy status to narcotic agent; Z72.89 Other problems related to lifestyle; Z82.49 Family history of ischemic heart disease and other diseases of the circulatory system; Z83.3 Family history of diabetes mellitus
CPT/HCPCS: J2704

== ENCOUNTER 2019-10-10 17:10 | Inpatient (IN) | payer OTHER ==
[~2019-10-10] VITALS: Ht 163.8 cm; Wt 69.4 kg
[~2019-10-10 17:10] MED LIST changes: -DASA70TA PO; -FOLI1TAB61 PO; -METO50 PO; -OMEP40CA13 PO; -PROPOFOL 10 MG/ML 20ML VIAL IV ONE
[2019-10-10 18:14] LABS: BASOPHILS % (AUTO) 2.7 % (0.0-5.0); EOSINOPHILS % (AUTO) 2.2 % (0.0-8.0); HEMATOCRIT 22.4 % (36-48); LYMPHOCYTES % (AUTO) 4.2 % (21.0-51.0); MEAN CORPUSCULAR HEMOGLOBIN 29.5 pg (27.0-33.0); MEAN CORPUSCULAR HGB CONC 31.3 g/dL (32.0-36.0); MEAN CORPUSCULAR VOLUME 94.5 fL (79-99); MONOCYTES % (AUTO) 3.1 % (3.0-13.0); NEUTROPHILS % (AUTO) 83.3 % (40.0-77.0); NUCLEATED RED BLOOD CELLS 0.1 % (0.0-0.19); RED BLOOD CELL COUNT(AUTO) 2.37 MIL/uL (4.00-5.50); RED CELL DISTRIBUTION WIDTH 17.2 % (11.0-15.5)
[2019-10-10 18:21] LABS: PLATELET COUNT (AUTO) 917 K/uL (130-400); WHITE BLOOD COUNT (AUTO) 38.7 K/uL (4.8-10.8)
[2019-10-10 18:33] LABS: INR 1.02 (0.85-1.15); PARTIAL THROMBOPLASTIN TIME 26.8 SEC (26.3-35.5)
[2019-10-10 18:36] LABS: ALBUMIN 3.3 g/dL (3.5-5.0); BILIRUBIN,TOTAL 0.3 mg/dL (0.2-1.0)
[2019-10-10 18:48] LABS: BAND NEUTROPHILS % (MANUAL) 7 % (0-2); BASOPHILS % (MANUAL) 1 % (0-2); EOSINOPHILS % (MANUAL) 1 % (1-6); LYMPHOCYTES % (MANUAL) 4 % (22-44); MONOCYTES % (MANUAL) 1 % (2-9); REACTIVE LYMPHOCYTES 1 % (0-0); SEGMENTED NEUTROPHILS % 85 % (40-70)
[2019-10-10 18:50] LABS: MAN.DIFF COMMENT-IMPRESSION MANUAL DIFFERENTIAL
[2019-10-10] MEDS ORDERED: ALBUMIN (HUMAN) 25% 100 ML IV ONE (18:59)
[2019-10-10] MEDS ORDERED: MEROPENEM 1 GM VIAL ONE (18:59)
[2019-10-10 19:52] LABS: APPEARANCE,URINE Clear (CLEAR); BILIRUBIN,URINE Negative (NEGATIVE); COLOR,URINE Yellow (YELLOW); GLUCOSE, URINE (UA) Negative (NEGATIVE); KETONES,URINE Negative (NEGATIVE); LEUKOCYTE ESTERASE ,URINE Trace (NEGATIVE); NITRATE,URINE Negative (NEGATIVE); OCCULT BLOOD,URINE Negative (NEGATIVE); PROTEIN,URINE Negative (NEGATIVE); UROBILINOGEN,URINE 0.2 mg/dL (0.2-1.0)
[2019-10-10 20:42] LABS: AMORPHOUS SEDIMENT,UR Few /LPF (None Seen); BACTERIA,URINE Few /HPF (None Seen); RBC,URINE None Seen /HPF (0-1); WBC,URINE 0-1 /HPF (0-1)
[2019-10-10] MEDS ORDERED: ONDANSETRON HCL 4 MG/2 ML VIAL IVP PRN (20:45)
[2019-10-10 23:18] VITALS: BP 120/43
[2019-10-10] MEDS ORDERED: METO50 PO (23:39)
[2019-10-10] MEDS ORDERED: DASA70TA PO (23:39)
[2019-10-10] MEDS ORDERED: OMEP40CA13 PO (23:39)
[2019-10-10] MEDS ORDERED: FOLI1TAB61 PO (23:39)
[2019-10-10 23:47] VITALS: BP 105/51
--- NOTE | 2019-10-11 | NUR ---
Patient arrival PATIENT A/OX4. C/O SOB WITH EXERTION. USING 3L 02 VIA NC, 02 SATS AT 100%. CURRENTLY RECEIVING 1UNIT OF BLOOD, STARTED IN ED. BLOOD TRANSFUSION CONSENT IN CHART. PATIENT HAS DISCOLORATION TO UPPER AND LOWER EXTREMITIES. NO EDEMA. SKIN DRY AND FLAKY. PATIENT APPEARS PALE. MEDS RECONCILED AND NEED TO BE RESUMED. WILL CONTINUE TO MONITOR.
[2019-10-11 03:57] VITALS: BP 120/48
[2019-10-11] MEDS ORDERED: GLUCAGON 1MG KIT 1 MG ML IM PRN (05:00)
[2019-10-11] MEDS ORDERED: DEXTROSE 50%-WATER 50 ML DISP.SYRIN IV PRN (05:00)
[2019-10-11 05:40] LABS: HEMATOCRIT 23.8 % (36-48); MEAN CORPUSCULAR HEMOGLOBIN 29.5 pg (27.0-33.0); MEAN CORPUSCULAR HGB CONC 31.5 g/dL (32.0-36.0); MEAN CORPUSCULAR VOLUME 93.7 fL (79-99); NUCLEATED RED BLOOD CELLS 0.1 % (0.0-0.19); PLATELET COUNT (AUTO) 676 K/uL (130-400); RED BLOOD CELL COUNT(AUTO) 2.54 MIL/uL (4.00-5.50); RED CELL DISTRIBUTION WIDTH 18.1 % (11.0-15.5); WHITE BLOOD COUNT (AUTO) 29.7 K/uL (4.8-10.8)
[2019-10-11] MEDS: INSULIN HUMULIN R 100 UNIT/ML 3ML SQ SCH ×4 (05:49→20:28)
[2019-10-11 06:02] LABS: CREATININE 1.9 mg/dL (0.5-1.5); POTASSIUM 3.8 mmol/L (3.5-5.1)
[2019-10-11 07:51] VITALS: BP 125/59
[2019-10-11] MEDS ORDERED: PANTOPRAZOLE 40 MG/VIAL IVP SCH (09:00)
[2019-10-11] MEDS: PANTOPRAZOLE 40 MG/VIAL IVP SCH ×3 (09:00→20:29)
--- NOTE | 2019-10-11 10:36 | NUR ---
INITIAL SW spoke with daughter, Brandi Tse, [phone]. Patient lives with spouse, Adam Muniz, [phone]. No home services but has private sitter. DME: BPM, glucometer (no insulin), walker with seat, nebulizer, O2 concentrator/portable. Daughter does not remember the name of the company supplying O2. Patient needs help to complete ADL's and does not drive. Family or private sitter asst as needed. PCP is Dr. Dejesus. Pharmacy is [facility] located in [place]. DCP is home as per daughter. Addendum: 10/11/19 at 1039 by FRANKLIN CORONADO Amended: Links added.
[2019-10-11 11:38] VITALS: BP 117/48
[2019-10-11] MEDS ORDERED: TRAMADOL HCL 50 MG TABLET PO PRN (14:45)
[2019-10-11 16:41] VITALS: BP 115/43
[2019-10-11] MEDS: SUCRALFATE 1 GM TABLET PO SCH (17:24)
[2019-10-11 17:27] LABS: HEMATOCRIT 23.6 % (36-48)
[2019-10-11 19:27] VITALS: BP 130/60
[2019-10-11] MEDS: Rosuvastatin Calcium 5 MG PO SCH (20:29)
[2019-10-11] MEDS: TORSEMIDE 20 MG TAB PO SCH (20:29)
[2019-10-11] MEDS: MIRTAZAPINE 15 MG TABLET PO SCH (20:29)
[2019-10-11] MEDS: METOPROLOL TARTRATE 50 MG TAB PO SCH (20:29)
[2019-10-11] MEDS: FERROUS SULFATE 325 MG TABLET.DR PO SCH (20:29)
[2019-10-11 23:41] VITALS: BP 102/43
[2019-10-12] VITALS (14 sets, daily range): BP systolic 104–145; BP diastolic 44–65
[2019-10-12 03:51] LABS: BASOPHILS % (AUTO) 2.8 % (0.0-5.0); EOSINOPHILS % (AUTO) 3.3 % (0.0-8.0); HEMATOCRIT 22.6 % (36-48); LYMPHOCYTES % (AUTO) 3.4 % (21.0-51.0); MEAN CORPUSCULAR HEMOGLOBIN 29.3 pg (27.0-33.0); MEAN CORPUSCULAR HGB CONC 31.4 g/dL (32.0-36.0); MEAN CORPUSCULAR VOLUME 93.4 fL (79-99); MONOCYTES % (AUTO) 1.9 % (3.0-13.0); NEUTROPHILS % (AUTO) 85.5 % (40.0-77.0); NUCLEATED RED BLOOD CELLS 0.1 % (0.0-0.19); PLATELET COUNT (AUTO) 669 K/uL (130-400); RED BLOOD CELL COUNT(AUTO) 2.42 MIL/uL (4.00-5.50); RED CELL DISTRIBUTION WIDTH 18.5 % (11.0-15.5)
[2019-10-12 03:55] LABS: WHITE BLOOD COUNT (AUTO) 30.9 K/uL (4.8-10.8)
[2019-10-12 04:08] LABS: INR 1.04 (0.85-1.15); PROTHROMBIN TIME 11.2 SEC (9.6-11.6)
[2019-10-12 04:12] LABS: ALBUMIN 3.3 g/dL (3.5-5.0); BILIRUBIN,TOTAL 0.4 mg/dL (0.2-1.0); CREATININE 1.7 mg/dL (0.5-1.5); PHOSPHORUS 4.2 mg/dL (2.5-4.9); POTASSIUM 3.7 mmol/L (3.5-5.1); TOTAL PROTEIN, SERUM 5.7 g/dL (6.0-8.3)
[2019-10-12] MEDS: INSULIN HUMULIN R 100 UNIT/ML 3ML SQ SCH ×4 (05:44→21:00)
[2019-10-12] MEDS: SUCRALFATE 1 GM TABLET PO SCH ×3 (05:45→16:11)
[2019-10-12] MEDS: Vitamin B Complex/Vit C/Folic Acid PO SCH (07:54)
[2019-10-12] MEDS: FOLIC ACID 1 MG TABLET PO SCH (07:54)
[2019-10-12] MEDS: FERROUS SULFATE 325 MG TABLET.DR PO SCH ×2 (07:54→21:01)
[2019-10-12] MEDS: CHOLECALCIFEROL 2000 UNIT PO SCH (07:54)
[2019-10-12] MEDS: TORSEMIDE 20 MG TAB PO SCH ×2 (07:54→21:01)
[2019-10-12] MEDS: LINAGLIPTIN 5 MG TABLET PO SCH (07:55)
[2019-10-12] MEDS: GABAPENTIN 100 MG CAPSULE PO SCH (07:55)
[2019-10-12] MEDS: METOPROLOL TARTRATE 50 MG TAB PO SCH ×2 (07:57→21:01)
[2019-10-12] MEDS: PANTOPRAZOLE 40 MG/VIAL IVP SCH (08:10)
[2019-10-12] MEDS ORDERED: PROPOFOL 10 MG/ML 20ML VIAL IV ONE ×2 (10:30)
--- NOTE | 2019-10-12 11:20 | NUR ---
RETURNED TO ROOM VIA BED ACCOMPANIED BY Leopoldo HOLLIDAY RN. PT. AAOX3, RESP.'S EVEN AND UNLABORED. DENIES ANY C/O SOB, DENIES ANY CURRENT PAIN. CALL LIGHT WITHIN REACH, VERBALIZED ABILITY TO USE. BED LOW, SIDE RAILS UP X3.
--- NOTE | 2019-10-12 13:04 | NUR ---
DR. ARANGO IN ROOM SPEAKING WITH PT. RE:PLAN OF CARE. QUESTIONS ANSWERED BY DR. ARANGO, PT. VERBALIZED UNDERSTANDING.
--- NOTE | 2019-10-12 13:41 | NUR ---
DR. GOMEZ IN ROOM SPEAKING WITH PT. RE:PLAN OF CARE. QUESTIONS ANSWERED BY DR. GOMEZ.
[2019-10-12] MEDS: AMINOCAPROIC ACID 500 MG TABLET PO SCH ×6 (13:58→19:33)
[2019-10-12] MEDS: Rosuvastatin Calcium 5 MG PO SCH (21:00)
[2019-10-12] MEDS: MIRTAZAPINE 15 MG TABLET PO SCH (21:01)
[2019-10-13 04:00] VITALS: BP 118/64
[2019-10-13 04:56] LABS: MEAN CORPUSCULAR HEMOGLOBIN 29.2 pg (27.0-33.0); MEAN CORPUSCULAR HGB CONC 31.4 g/dL (32.0-36.0); MEAN CORPUSCULAR VOLUME 93.2 fL (79-99); PLATELET COUNT (AUTO) 624 K/uL (130-400); RED BLOOD CELL COUNT(AUTO) 2.19 MIL/uL (4.00-5.50); RED CELL DISTRIBUTION WIDTH 17.4 % (11.0-15.5); WHITE BLOOD COUNT (AUTO) 27.6 K/uL (4.8-10.8)
[2019-10-13 05:11] LABS: HEMATOCRIT 20.4 % (36-48)
[2019-10-13 05:22] LABS: CREATININE 1.7 mg/dL (0.5-1.5); POTASSIUM 3.4 mmol/L (3.5-5.1)
[2019-10-13] MEDS: INSULIN HUMULIN R 100 UNIT/ML 3ML SQ SCH ×4 (06:15→21:00)
[2019-10-13] MEDS: SUCRALFATE 1 GM TABLET PO SCH ×3 (06:38→17:25)
[2019-10-13] MEDS ORDERED: SODIUM CHLORIDE 0.9% 250 ML IV ONE (06:42)
--- NOTE | 2019-10-13 07:45 | NUR ---
PRBC TRANSFUSION IN PROGRESS. DENIES ANY C/O. CALL LIGHT WITHIN REACH.
[2019-10-13 08:26] VITALS: BP 113/61
[2019-10-13] MEDS: FOLIC ACID 1 MG TABLET PO SCH (10:12)
[2019-10-13] MEDS: FERROUS SULFATE 325 MG TABLET.DR PO SCH ×2 (10:12→19:55)
[2019-10-13] MEDS: LINAGLIPTIN 5 MG TABLET PO SCH (10:12)
[2019-10-13] MEDS: Vitamin B Complex/Vit C/Folic Acid PO SCH (10:12)
[2019-10-13] MEDS: PANTOPRAZOLE SODIUM 40 MG TABLET.DR PO SCH (10:12)
[2019-10-13] MEDS: TORSEMIDE 20 MG TAB PO SCH ×2 (10:12→19:55)
[2019-10-13] MEDS: GABAPENTIN 100 MG CAPSULE PO SCH (10:13)
[2019-10-13] MEDS: METOPROLOL TARTRATE 50 MG TAB PO SCH ×2 (10:13→19:54)
[2019-10-13] MEDS: CHOLECALCIFEROL 2000 UNIT PO SCH (10:14)
--- NOTE | 2019-10-13 10:30 | NUR ---
PRBC TRANSFUSION COMPLETED. TOLERATED, W/O C/O. CALL LIGHT WITHIN REACH, VERBALIZED ABILITY TO USE.
[2019-10-13 12:53] VITALS: BP 116/59
--- NOTE | 2019-10-13 13:38 | NUR ---
DR. Ramesh ARANGO IN ROOM SPEAKING WITH PT. RE:PLAN OF CARE.
[2019-10-13 16:37] VITALS: BP 112/58
[2019-10-13 19:29] VITALS: BP 122/53
[2019-10-13] MEDS: MIRTAZAPINE 15 MG TABLET PO SCH (19:54)
[2019-10-13] MEDS: Rosuvastatin Calcium 5 MG PO SCH (19:55)
[2019-10-13 23:09] VITALS: BP 107/52
[2019-10-14 03:35] VITALS: BP 114/55
[2019-10-14 04:13] LABS: MEAN CORPUSCULAR HEMOGLOBIN 29.6 pg (27.0-33.0); MEAN CORPUSCULAR HGB CONC 32.4 g/dL (32.0-36.0); MEAN CORPUSCULAR VOLUME 91.2 fL (79-99); PLATELET COUNT (AUTO) 636 K/uL (130-400); RED BLOOD CELL COUNT(AUTO) 2.74 MIL/uL (4.00-5.50); RED CELL DISTRIBUTION WIDTH 16.6 % (11.0-15.5); WHITE BLOOD COUNT (AUTO) 29.1 K/uL (4.8-10.8)
[2019-10-14 04:21] LABS: CREATININE 1.5 mg/dL (0.5-1.5); MAGNESIUM 1.9 mg/dL (1.80-2.40); PHOSPHORUS 3.9 mg/dL (2.5-4.9); POTASSIUM 3.1 mmol/L (3.5-5.1)
[2019-10-14 04:35] LABS: BAND NEUTROPHILS % (MANUAL) 5 % (0-2); BASOPHILS % (MANUAL) 3 % (0-2); EOSINOPHILS % (MANUAL) 4 % (1-6); LYMPHOCYTES % (MANUAL) 13 % (22-44); MAN.DIFF COMMENT-IMPRESSION MANUAL DIFFERENTIAL; MONOCYTES % (MANUAL) 1 % (2-9); PLATELET MORPHOLOGY COMMENT INCREASED; SEGMENTED NEUTROPHILS % 74 % (40-70)
[2019-10-14] MEDS: INSULIN HUMULIN R 100 UNIT/ML 3ML SQ SCH ×4 (06:09→20:06)
[2019-10-14] MEDS: SUCRALFATE 1 GM TABLET PO SCH ×3 (06:22→17:20)
[2019-10-14] MEDS ORDERED: POTASSIUM CHLORIDE 20 MEQ ERTAB PO SCH (07:45)
[2019-10-14 08:38] VITALS: BP 127/45
[2019-10-14] MEDS: FERROUS SULFATE 325 MG TABLET.DR PO SCH ×2 (08:48→20:05)
[2019-10-14] MEDS: METOPROLOL TARTRATE 50 MG TAB PO SCH ×2 (08:48→20:05)
[2019-10-14] MEDS: PANTOPRAZOLE SODIUM 40 MG TABLET.DR PO SCH (08:48)
[2019-10-14] MEDS: LINAGLIPTIN 5 MG TABLET PO SCH (08:49)
[2019-10-14] MEDS: FOLIC ACID 1 MG TABLET PO SCH (08:49)
[2019-10-14] MEDS: Vitamin B Complex/Vit C/Folic Acid PO SCH (08:49)
[2019-10-14] MEDS: TORSEMIDE 20 MG TAB PO SCH ×2 (08:49→20:05)
[2019-10-14] MEDS: GABAPENTIN 100 MG CAPSULE PO SCH (08:49)
[2019-10-14] MEDS: CHOLECALCIFEROL 2000 UNIT PO SCH (08:52)
[2019-10-14 12:27] VITALS: BP 98/64
--- NOTE | 2019-10-14 12:30 | NUR ---
DR. GOMEZ IS MAKING HIS ROUNDS. AM LABS ORDERED. WHEN ASKED IF PATIENT CAN BE DOWNGRADED TO MED-SURG, REPLIED "MAYBE TOMORROW".
[2019-10-14 16:34] VITALS: BP 110/64
[2019-10-14 20:00] VITALS: BP 122/52
[2019-10-14] MEDS: MIRTAZAPINE 15 MG TABLET PO SCH (20:05)
[2019-10-14] MEDS: Rosuvastatin Calcium 5 MG PO SCH (20:06)
[2019-10-14 23:23] VITALS: BP 108/46
[2019-10-15 03:57] VITALS: BP 109/44
[2019-10-15 04:42] LABS: BASOPHILS % (AUTO) 2.7 % (0.0-5.0); EOSINOPHILS % (AUTO) 7.6 % (0.0-8.0); HEMATOCRIT 25.4 % (36-48); LYMPHOCYTES % (AUTO) 4.7 % (21.0-51.0); MEAN CORPUSCULAR HEMOGLOBIN 29.6 pg (27.0-33.0); MEAN CORPUSCULAR HGB CONC 32.3 g/dL (32.0-36.0); MEAN CORPUSCULAR VOLUME 91.7 fL (79-99); MONOCYTES % (AUTO) 1.8 % (3.0-13.0); NEUTROPHILS % (AUTO) 80.1 % (40.0-77.0); NUCLEATED RED BLOOD CELLS 0.1 % (0.0-0.19); PLATELET COUNT (AUTO) 664 K/uL (130-400); RED BLOOD CELL COUNT(AUTO) 2.77 MIL/uL (4.00-5.50); RED CELL DISTRIBUTION WIDTH 15.9 % (11.0-15.5); WHITE BLOOD COUNT (AUTO) 29.3 K/uL (4.8-10.8)
[2019-10-15 04:55] LABS: CREATININE 1.4 mg/dL (0.5-1.5); MAGNESIUM 1.9 mg/dL (1.80-2.40); POTASSIUM 3.1 mmol/L (3.5-5.1)
[2019-10-15] MEDS: INSULIN HUMULIN R 100 UNIT/ML 3ML SQ SCH ×2 (06:06→11:30)
[2019-10-15] MEDS: SUCRALFATE 1 GM TABLET PO SCH ×2 (06:28→11:50)
[2019-10-15 07:30] VITALS: BP 128/70
[2019-10-15] MEDS: CHOLECALCIFEROL 2000 UNIT PO SCH (09:00)
[2019-10-15] MEDS: METOPROLOL TARTRATE 50 MG TAB PO SCH (10:03)
[2019-10-15] MEDS: TORSEMIDE 20 MG TAB PO SCH ×2 (10:03→10:14)
[2019-10-15] MEDS: GABAPENTIN 100 MG CAPSULE PO SCH (10:03)
[2019-10-15] MEDS: FERROUS SULFATE 325 MG TABLET.DR PO SCH (10:03)
[2019-10-15] MEDS: FOLIC ACID 1 MG TABLET PO SCH (10:03)
[2019-10-15] MEDS: PANTOPRAZOLE SODIUM 40 MG TABLET.DR PO SCH (10:03)
[2019-10-15] MEDS: LINAGLIPTIN 5 MG TABLET PO SCH (10:04)
[2019-10-15] MEDS: Vitamin B Complex/Vit C/Folic Acid PO SCH (10:04)
[2019-10-15 11:00] VITALS: BP 115/51
[2019-12-04] MEDS ORDERED: DASA70TA PO (22:53)
== END 2019-10-15 14:01 | disposition home or self-care (01) | DRG 378 ==
LOC: EDH 17:10 → EDHIP 19:41 → 2AH 22:48 → 2DH 10-13 23:25
PROVIDERS: ADMIT Internal Medicine Nephrology; ATTEND Internal Medicine Nephrology
PROC: 30233N1 Transfusion of Nonautologous Red Blood Cells into Peripheral Vein, Percutaneous Approach (ICD-10-PCS; principal; 2019-10-10)
PROC: 0DJ08ZZ Inspection of Upper Intestinal Tract, Via Natural or Artificial Opening Endoscopic (ICD-10-PCS; 2019-10-12)
DX: K29.51 Unspecified chronic gastritis with bleeding (principal); C92.10 Chronic myeloid leukemia, BCR/ABL-positive, not having achieved remission; N18.4 Chronic kidney disease, stage 4 (severe); I13.0 Hypertensive heart and chronic kidney disease with heart failure and stage 1 through stage 4 chronic kidney disease, or unspecified chronic kidney disease; D62 Acute posthemorrhagic anemia; I25.10 Atherosclerotic heart disease of native coronary artery without angina pectoris; Z66 Do not resuscitate; I50.9 Heart failure, unspecified; E11.22 Type 2 diabetes mellitus with diabetic chronic kidney disease; D69.6 Thrombocytopenia, unspecified; E66.01 Morbid (severe) obesity due to excess calories; E78.00 Pure hypercholesterolemia, unspecified; K31.7 Polyp of stomach and duodenum; R62.7 Adult failure to thrive; Z68.25 Body mass index [BMI] 25.0-25.9, adult; Z95.1 Presence of aortocoronary bypass graft; Z95.2 Presence of prosthetic heart valve; Z95.0 Presence of cardiac pacemaker; Z98.49 Cataract extraction status, unspecified eye; Z88.5 Allergy status to narcotic agent; Z88.0 Allergy status to penicillin; Z90.710 Acquired absence of both cervix and uterus; Z92.21 Personal history of antineoplastic chemotherapy; Z87.440 Personal history of urinary (tract) infections; Z90.49 Acquired absence of other specified parts of digestive tract
CPT/HCPCS: 36415; 36430; 43235; 71045; 80048; 80053; 81001; 82270; 82948; 83690; 83735; 84100; 84484; 85014; 85018; 85025; 85027; 85610; 85730; 86850; 86900; 86901; 86922; 87040; 93005; 97039; A4606; C9113; G0378; J2185; J2704; J7030; J7050; P9016; P9046

== ENCOUNTER 2019-10-21 10:32 | Inpatient (IN) | payer OTHER ==
[~2019-10-21] VITALS: Ht 162.6 cm; Wt 72.2 kg
[~2019-10-21 10:32] MED LIST changes: +FOLI1TAB61 PO; -FOLI1TAB85 PO; +METO50 PO; -METO50TA18 PO
[2019-10-21 12:09] LABS: BASOPHILS % (AUTO) 0.7 % (0.0-5.0); EOSINOPHILS % (AUTO) 2.9 % (0.0-8.0); HEMATOCRIT 23.4 % (36-48); LYMPHOCYTES % (AUTO) 4.1 % (21.0-51.0); MEAN CORPUSCULAR HEMOGLOBIN 30.5 pg (27.0-33.0); MEAN CORPUSCULAR HGB CONC 32.1 g/dL (32.0-36.0); MEAN CORPUSCULAR VOLUME 95.1 fL (79-99); MONOCYTES % (AUTO) 2.8 % (3.0-13.0); NEUTROPHILS % (AUTO) 88.3 % (40.0-77.0); RED BLOOD CELL COUNT(AUTO) 2.46 MIL/uL (4.00-5.50); RED CELL DISTRIBUTION WIDTH 17.6 % (11.0-15.5); WHITE BLOOD COUNT (AUTO) 29.1 K/uL (4.8-10.8)
[2019-10-21 12:19] LABS: PLATELET COUNT (AUTO) 747 K/uL (130-400); POTASSIUM 3.5 mmol/L (3.5-5.1)
[2019-10-21 12:22] LABS: INR 0.99 (0.85-1.15); PARTIAL THROMBOPLASTIN TIME 27.3 SEC (26.3-35.5); PROTHROMBIN TIME 10.7 SEC (9.6-11.6)
[2019-10-21 12:24] LABS: ALBUMIN 3.2 g/dL (3.5-5.0); BILIRUBIN,TOTAL 0.4 mg/dL (0.2-1.0); TOTAL PROTEIN, SERUM 5.6 g/dL (6.0-8.3)
[2019-10-21 13:32] LABS: APPEARANCE,URINE Clear (CLEAR); BILIRUBIN,URINE Negative (NEGATIVE); COLOR,URINE Yellow (YELLOW); GLUCOSE, URINE (UA) Negative (NEGATIVE); KETONES,URINE Negative (NEGATIVE); LEUKOCYTE ESTERASE ,URINE Small (NEGATIVE); NITRATE,URINE Negative (NEGATIVE); OCCULT BLOOD,URINE Moderate (NEGATIVE); PROTEIN,URINE POS 1+ mg/dL (NEGATIVE); UROBILINOGEN,URINE 0.2 mg/dL (0.2-1.0)
[2019-10-21 13:48] LABS: BACTERIA,URINE Rare /HPF (None Seen); RBC,URINE 0-1 /HPF (0-1); SQUAMOUS EPITHELIAL CELL,UR Rare /HPF (0-2)
[2019-10-21] MEDS ORDERED: ONDANSETRON HCL 4 MG/2 ML VIAL IVP PRN (14:30)
[2019-10-21] MEDS: INSULIN R PO SS1/2 SQ SCH ×2 (16:30→21:00)
[2019-10-21] MEDS ORDERED: PEG 3350/NA SULF,BICARB,CL/KCL 4000 ML SOLN PO SCH (17:00)
[2019-10-21 17:10] VITALS: BP 124/42
[2019-10-21] MEDS ORDERED: DASA70TA PO (18:24)
[2019-10-21] MEDS ORDERED: OMEP40CA13 PO (18:24)
[2019-10-21] MEDS ORDERED: SUCR1TAB2 PO (18:24)
[2019-10-21 19:24] VITALS: BP 127/42
[2019-10-21 20:32] LABS: HEMATOCRIT 22.8 % (36-48)
--- NOTE | 2019-10-21 22:30 | NUR ---
CHEST PAIN, CALLED PT C/O CHEST PAIN. DR GOMEZ ORDERED TYLENOL, DILAUDID AND CARDIAC ENZYE Q8 X 3.
--- NOTE | 2019-10-21 22:30 | NUR ---
ALSO INFORMED DR GOMEZ ABOUT K AT 3.5. NO NEW ORDERS GIVEN
[2019-10-21] MEDS ORDERED: HYDROMORPHONE HCL 0.5 MG/0.5 ML ML IVP PRN (22:45)
[2019-10-21] MEDS ORDERED: ACETAMINOPHEN 325 MG TAB PO PRN (22:45)
[2019-10-21] MEDS ORDERED: ACETAMINOPHEN 325 MG TAB ONE (22:54)
[2019-10-21 23:16] VITALS: BP 126/98
[2019-10-21 23:26] LABS: CREATINE KINASE, TOTAL 42 U/L (21-232); MYOGLOBIN 74 ng/mL (10-92); TROPONIN I < 0.04 ng/mL (0.00-0.06)
[2019-10-22] VITALS (23 sets, daily range): BP systolic 75–140; BP diastolic 33–61
[2019-10-22] MEDS ORDERED: SODIUM CHLORIDE 0.9% 250 ML IV ONE (04:24)
[2019-10-22 04:38] LABS: HEMATOCRIT 18.5 % (36-48)
[2019-10-22] MEDS: INSULIN R PO SS1/2 SQ SCH ×4 (06:03→21:00)
--- NOTE | 2019-10-22 08:10 | NUR ---
Per nursing communication, called GI to notify of unclear stool prior to EGD and colonoscopy scheduled for today. Notified Aisha in GI Lab that patient is not running clear, is having dark blood particles in stool. Aisha to notify GI lab once staff arrives.
[2019-10-22 08:21] LABS: CREATINE KINASE, TOTAL 43 U/L (21-232); MYOGLOBIN 89 ng/mL (10-92); TROPONIN I < 0.04 ng/mL (0.00-0.06)
[2019-10-22 10:36] LABS: HEMATOCRIT 23.7 % (36-48)
[2019-10-22] MEDS ORDERED: PROPOFOL 10 MG/ML 20ML VIAL IV ONE (10:50)
[2019-10-22] MEDS ORDERED: PHENYLEPHRINE HCL 10 MG/ML 1ML VIAL IV ONE (10:51)
--- NOTE | 2019-10-22 13:12 | NUR ---
Called Dr. Sen regarding results from EGD/Colonoscopy. Will proceed with verbal order given yesterday by Dr. Sen, if EGD/Colonoscopy found no bleed, give Amicar 1g PO Q1h for 7 hours.
[2019-10-22] MEDS: PANTOPRAZOLE 40 MG/VIAL IVP SCH (15:04)
[2019-10-22] MEDS: AMINOCAPROIC ACID 500 MG TABLET PO SCH ×7 (15:04→22:01)
[2019-10-22 15:55] LABS: CREATINE KINASE, TOTAL 61 U/L (21-232); MYOGLOBIN 123 ng/mL (10-92); TROPONIN I < 0.04 ng/mL (0.00-0.06)
--- NOTE | 2019-10-22 16:51 | NUR ---
D/C PLAN CM spoke to pt regarding d/c planning. Pt lives with spouse. Has a wk, nebulizer, and home o2. States she has a private caregiver that assists with ADL's. Pt is readmission. CM offered short term snf/rehab as possible d/c option. Pt declined. Plan to home. CM to f/u. Addendum: 10/22/19 at 1653 by JENNIFER SALAMANCA CM Amended: Links added.
[2019-10-22] MEDS ORDERED: ALTEPLASE 2 MG/VIAL IVCATH SCH (18:00)
--- NOTE | 2019-10-22 19:36 | NUR ---
HGB: 6.8 , HCT: 21.0 Per standing order to transfuse 1 unit of PRBC if Hgb <7.0. Pt informed and verbalized understanding regarding transfusion procedure. Type and crossmatch already performed by lab staff. Blood utilization criteria form filled-in. Pt. port a cath checked - intact and patent. 1 unit PRBC obtained by the proposal writer from lab and verified bedside with 2 nurses. Baseline VS taken: BP: 126/52 ; HR: 80 ; RR: 17 ; T: 99.2 per oral and O2Sat at 97% via 1.5 lpm NC. 4: Transfusion initiated with proposal writer at bedside. Pt. tolerated transfusion without any signs and symptoms of immediate transfusion reaction apparent. VS continued to be monitored per hospital protocol. BT continues without any s/s of reaction. 0: BT completed without any complication or feeling of discomfort. Tolerated procedure well.
[2019-10-22] MEDS ORDERED: AMINOCAPROIC ACID 500 MG TABLET PO ONE ×2 (21:04→22:01)
[2019-10-22] MEDS: HYDROCORTISONE 25 MG SUPPOSITORY PR SCH (21:08)
[2019-10-23 03:38] VITALS: BP 102/51
[2019-10-23 05:36] LABS: HEMATOCRIT 23.9 % (36-48); MEAN CORPUSCULAR HEMOGLOBIN 30.1 pg (27.0-33.0); MEAN CORPUSCULAR HGB CONC 32.6 g/dL (32.0-36.0); MEAN CORPUSCULAR VOLUME 92.3 fL (79-99); PLATELET COUNT (AUTO) 409 K/uL (130-400); RED BLOOD CELL COUNT(AUTO) 2.59 MIL/uL (4.00-5.50); RED CELL DISTRIBUTION WIDTH 16.3 % (11.0-15.5); WHITE BLOOD COUNT (AUTO) 16.8 K/uL (4.8-10.8)
[2019-10-23 05:49] LABS: BAND NEUTROPHILS % (MANUAL) 8 % (0-2); CREATININE 1.4 mg/dL (0.5-1.5); LYMPHOCYTES % (MANUAL) 7 % (22-44); MAN.DIFF COMMENT-IMPRESSION MANUAL DIFFERENTIAL; MONOCYTES % (MANUAL) 6 % (2-9); PLATELET MORPHOLOGY COMMENT INCREASED; POTASSIUM 3.6 mmol/L (3.5-5.1); SEGMENTED NEUTROPHILS % 79 % (40-70)
[2019-10-23] MEDS: INSULIN R PO SS1/2 SQ SCH ×4 (06:14→20:47)
[2019-10-23 07:48] VITALS: BP 96/60
--- NOTE | 2019-10-23 08:00 | NUR ---
PT AAO X 3 REVIEW PLAN OF CARE, DENIES ANY DISCOMFORT. BUT STATED THAT SHE IS HAVING SOME SM BOWEL MOVEMENT . WITH SOME BLOOD , NOTED PT STATED THAT SHE HAS SOME HEMMOROID AND IT BOTHER HER SOME TIME, PT GET A RECTAL SUPP FOR IT, REVIEW FALL RISK AND CALL LIGHT IN REACH,,
[2019-10-23] MEDS: HYDROCORTISONE 25 MG SUPPOSITORY PR SCH ×2 (10:00→20:47)
[2019-10-23] MEDS: PANTOPRAZOLE 40 MG/VIAL IVP SCH (10:00)
[2019-10-23 11:32] VITALS: BP 116/55
[2019-10-23 16:18] VITALS: BP 111/60
[2019-10-23 20:53] VITALS: BP 132/56
[2019-10-23 23:32] VITALS: BP 144/64
[2019-10-24 03:46] VITALS: BP 136/56
[2019-10-24] MEDS: INSULIN R PO SS1/2 SQ SCH ×4 (06:03→21:00)
[2019-10-24 06:33] LABS: HEMATOCRIT 28.6 % (36-48); MEAN CORPUSCULAR HEMOGLOBIN 29.5 pg (27.0-33.0); MEAN CORPUSCULAR HGB CONC 31.8 g/dL (32.0-36.0); MEAN CORPUSCULAR VOLUME 92.9 fL (79-99); PLATELET COUNT (AUTO) 358 K/uL (130-400); RED BLOOD CELL COUNT(AUTO) 3.08 MIL/uL (4.00-5.50); RED CELL DISTRIBUTION WIDTH 16.1 % (11.0-15.5)
[2019-10-24 06:47] LABS: CREATININE 1.3 mg/dL (0.5-1.5); POTASSIUM 3.5 mmol/L (3.5-5.1)
[2019-10-24 08:30] VITALS: BP 144/64
[2019-10-24] MEDS: PANTOPRAZOLE 40 MG/VIAL IVP SCH (10:32)
[2019-10-24] MEDS: HYDROCORTISONE 25 MG SUPPOSITORY PR SCH ×2 (10:33→21:31)
[2019-10-24 13:40] VITALS: BP 139/60
[2019-10-24 17:30] VITALS: BP 122/64
[2019-10-24 19:55] VITALS: BP 130/44
[2019-10-24 23:24] VITALS: BP 121/45
[2019-10-25 04:00] VITALS: BP 117/67
[2019-10-25 05:33] LABS: HEMATOCRIT 25.5 % (36-48); MEAN CORPUSCULAR HEMOGLOBIN 29.6 pg (27.0-33.0); MEAN CORPUSCULAR VOLUME 95.5 fL (79-99); PLATELET COUNT (AUTO) 408 K/uL (130-400); RED BLOOD CELL COUNT(AUTO) 2.67 MIL/uL (4.00-5.50); RED CELL DISTRIBUTION WIDTH 15.9 % (11.0-15.5)
[2019-10-25 05:49] LABS: CREATININE 1.2 mg/dL (0.5-1.5); POTASSIUM 3.5 mmol/L (3.5-5.1)
[2019-10-25] MEDS: INSULIN R PO SS1/2 SQ SCH ×4 (06:48→21:00)
[2019-10-25 08:00] VITALS: BP 144/61
[2019-10-25] MEDS: PANTOPRAZOLE 40 MG/VIAL IVP SCH (09:36)
[2019-10-25 12:00] VITALS: BP 139/72
[2019-10-25 16:00] VITALS: BP 141/67
--- NOTE | 2019-10-25 20:30 | NUR ---
RESUMING PATIENT'S HOME MEDICATION PATIENT STATED DOCTOR CONCHITA HAD INFORMED HER SHE COULD TAKE HER REMERON FROM HOME FOR SLEEP AND ANXIETY AT NIGHT. PAGED, RETURNED CALL WITHIN A FEW MINUTES. INFORMED DR. ARANGO OF ABOVE MEDICATION, STATED IT WAS ALRIGHT FOR PATIENT TO RESUME IT TONIGHT. PATIENT MADE AWARE, VERBALIZED UNDERSTANDING. INFORMED HER WOULD ADMINISTER IT SOON AVAILABLE.
[2019-10-25 20:55] VITALS: BP 137/65
[2019-10-25] MEDS ORDERED: MIRTAZAPINE 15 MG TABLET PO SCH (21:00)
[2019-10-26 00:48] VITALS: BP 134/57
[2019-10-26 04:07] VITALS: BP 149/67
[2019-10-26 05:23] LABS: BASOPHILS % (AUTO) 0.9 % (0.0-5.0); EOSINOPHILS % (AUTO) 9.7 % (0.0-8.0); HEMATOCRIT 24.9 % (36-48); LYMPHOCYTES % (AUTO) 4.3 % (21.0-51.0); MEAN CORPUSCULAR HEMOGLOBIN 30.3 pg (27.0-33.0); MEAN CORPUSCULAR HGB CONC 31.7 g/dL (32.0-36.0); MEAN CORPUSCULAR VOLUME 95.4 fL (79-99); MONOCYTES % (AUTO) 2.2 % (3.0-13.0); NEUTROPHILS % (AUTO) 82.4 % (40.0-77.0); PLATELET COUNT (AUTO) 419 K/uL (130-400); RED BLOOD CELL COUNT(AUTO) 2.61 MIL/uL (4.00-5.50); RED CELL DISTRIBUTION WIDTH 15.8 % (11.0-15.5); WHITE BLOOD COUNT (AUTO) 14.2 K/uL (4.8-10.8)
[2019-10-26 06:15] LABS: CREATININE 1.2 mg/dL (0.5-1.5); POTASSIUM 3.4 mmol/L (3.5-5.1)
--- NOTE | 2019-10-26 06:38 | NUR ---
0638: DR. ARANGO PAGED VIA ANSWERING SERVICE AT 0543, AND THEN REPAGED AGAIN BECAUSE NO ANSWER AT 0620. WHEN DOCTOR CALLED BACK INFORMED HIM OF PATIENT'S H/H AT 7.9/24.9. ORDERS RECEIVED FOR ONE UNIT OF PRBC AND TO ADMINISTERED DECADRON 10 MG IV PRIOR TO TRANSFUSION. PATIENT MADE AWARE OF NEW ORDERS, VERBALIZED UNDERSTANDING.
[2019-10-26] MEDS ORDERED: DEXAMETHASONE 10MG/ML 1ML VIAL 10 MG in SODIUM CHLORIDE 0.9% 50 ML IV SCH (06:45)
[2019-10-26] MEDS: INSULIN R PO SS1/2 SQ SCH ×2 (07:30→11:30)
[2019-10-26 08:23] VITALS: BP 172/73
[2019-10-26] MEDS ORDERED: DEXAMETHASONE SOD PHOSPHATE 4 MG/ML 1ML VIAL ONE (09:01)
[2019-10-26] MEDS: PANTOPRAZOLE 40 MG/VIAL IVP SCH (09:36)
[2019-10-26 11:32] VITALS: BP 128/77
--- NOTE | 2019-10-26 15:55 | NUR ---
DISCHARGE INSTRUCTIONS PROVIDED TO PATIENT. FOLLOW UP APPOINTMENTS PROVIDED, HANDOUTS PROVIDED AND EXPLAINED TO PATIENT. ALL QUESTIONS/CONCERNS ADDRESSED.
--- NOTE | 2019-10-26 16:05 | NUR ---
PATIENT DISCHARGED FROM FACILITY VIA WHEELCHAIR AND ASSISTED PATIENT INTO PRIVATE VEHICLE DRIVEN BY FAMILY
== END 2019-10-26 16:05 | disposition home or self-care (01) | DRG 378 ==
LOC: EDH 10:32 → EDHIP 13:45 → 3CH 15:51
PROVIDERS: ADMIT Internal Medicine Nephrology; ATTEND Internal Medicine Nephrology
PROC: 30233N1 Transfusion of Nonautologous Red Blood Cells into Peripheral Vein, Percutaneous Approach (ICD-10-PCS; principal; 2019-10-22)
PROC: 0DJ08ZZ Inspection of Upper Intestinal Tract, Via Natural or Artificial Opening Endoscopic (ICD-10-PCS; 2019-10-22)
PROC: 0DJD8ZZ Inspection of Lower Intestinal Tract, Via Natural or Artificial Opening Endoscopic (ICD-10-PCS; 2019-10-22)
DX: K92.2 Gastrointestinal hemorrhage, unspecified (principal); N18.4 Chronic kidney disease, stage 4 (severe); C92.10 Chronic myeloid leukemia, BCR/ABL-positive, not having achieved remission; D50.0 Iron deficiency anemia secondary to blood loss (chronic); E11.22 Type 2 diabetes mellitus with diabetic chronic kidney disease; E78.5 Hyperlipidemia, unspecified; I12.9 Hypertensive chronic kidney disease with stage 1 through stage 4 chronic kidney disease, or unspecified chronic kidney disease; I25.10 Atherosclerotic heart disease of native coronary artery without angina pectoris; Z80.42 Family history of malignant neoplasm of prostate; Z95.2 Presence of prosthetic heart valve; Z90.710 Acquired absence of both cervix and uterus; D47.3 Essential (hemorrhagic) thrombocythemia; Z92.21 Personal history of antineoplastic chemotherapy; Z98.49 Cataract extraction status, unspecified eye; Z90.49 Acquired absence of other specified parts of digestive tract; K64.8 Other hemorrhoids; Z88.5 Allergy status to narcotic agent; Z88.0 Allergy status to penicillin
CPT/HCPCS: 36415; 36430; 43235; 45378; 71045; 78278; 80048; 80053; 81001; 82270; 82550; 82948; 83874; 84484; 85014; 85018; 85025; 85027; 85610; 85730; 86850; 86900; 86901; 86922; 87088; 93005; A4606; A9512; C9113; G0378; J1100; J2370; J2704; J2997; J7030; P9016

== ENCOUNTER 2019-11-16 08:12 | Observation (INO) | payer OTHER ==
[~2019-11-16] VITALS: Ht 162.6 cm; Wt 72.9 kg
[2019-11-16] MEDS ORDERED: CEFEPIME HCL 2 GM VIAL ONE (10:01)
[2019-11-16 10:13] LABS: CREATININE 2.4 mg/dL (0.5-1.5); POTASSIUM 4.5 mmol/L (3.5-5.1)
[2019-11-16 10:15] LABS: BASOPHILS % (AUTO) 2.5 % (0.0-5.0); EOSINOPHILS % (AUTO) 1.8 % (0.0-8.0); HEMATOCRIT 23.4 % (36-48); LYMPHOCYTES % (AUTO) 5.9 % (21.0-51.0); MEAN CORPUSCULAR HEMOGLOBIN 31.1 pg (27.0-33.0); MEAN CORPUSCULAR HGB CONC 32.5 g/dL (32.0-36.0); MEAN CORPUSCULAR VOLUME 95.9 fL (79-99); MONOCYTES % (AUTO) 3.6 % (3.0-13.0); NEUTROPHILS % (AUTO) 61.4 % (40.0-77.0); NUCLEATED RED BLOOD CELLS 0.2 % (0.0-0.19); RED BLOOD CELL COUNT(AUTO) 2.44 MIL/uL (4.00-5.50); RED CELL DISTRIBUTION WIDTH 16.6 % (11.0-15.5)
[2019-11-16 10:17] LABS: ALBUMIN 3.1 g/dL (3.5-5.0); BILIRUBIN,DIRECT 0.1 mg/dL (0.0-0.3); BILIRUBIN,TOTAL 0.3 mg/dL (0.2-1.0); INR 1.03 (0.85-1.15); PARTIAL THROMBOPLASTIN TIME 26.5 SEC (26.3-35.5); PROTHROMBIN TIME 11.1 SEC (9.6-11.6); TOTAL PROTEIN, SERUM 5.5 g/dL (6.0-8.3)
[2019-11-16 10:18] LABS: PLATELET COUNT (AUTO) 1044 K/uL (130-400); WHITE BLOOD COUNT (AUTO) 100.1 K/uL (4.8-10.8)
[2019-11-16 11:16] LABS: BAND NEUTROPHILS % (MANUAL) 10 % (0-2); BASOPHILS % (MANUAL) 1 % (0-2); EOSINOPHILS % (MANUAL) 2 % (1-6); LYMPHOCYTES % (MANUAL) 11 % (22-44); MAN.DIFF COMMENT-IMPRESSION MANUAL DIFFERENTIAL; MONOCYTES % (MANUAL) 1 % (2-9); MYELOCYTES % 4 % (0-0); SEGMENTED NEUTROPHILS % 71 % (40-70)
[2019-11-16] MEDS: SODIUM CHLORIDE 0.9% 1000ML 1,000 ML IV SCH (12:03)
[2019-11-16] MEDS ORDERED: HYDRALAZINE HCL 20 MG/ML VIAL IV PRN (12:15)
[2019-11-16] MEDS ORDERED: ONDANSETRON HCL 4 MG/2 ML VIAL IVP PRN (12:15)
[2019-11-16] MEDS ORDERED: DEXTROSE 50%-WATER 50 ML DISP.SYRIN IV PRN (12:15)
[2019-11-16] MEDS ORDERED: MAGNESIUM 2GM PREMIX 50ML 50 ML IV PRN (12:15)
[2019-11-16] MEDS ORDERED: ACETAMINOPHEN 325 MG TAB PO PRN (12:15)
[2019-11-16] MEDS ORDERED: GLUCAGON 1MG KIT 1 MG ML IM PRN (12:15)
[2019-11-16] MEDS ORDERED: LABETALOL 20 MG/4 ML DISP.SYRIN IV PRN (12:15)
[2019-11-16] MEDS ORDERED: SODIUM CHLORIDE 0.9% 100 ML IV ONE ×2 (13:11→18:03)
--- NOTE | 2019-11-16 15:59 | NUR ---
[facility] CM spoke to daughter Brandi Tse discussed dc plans. Pt is semi-independent prior to admission, lives at home with spouse, daughter lives close by. Pt has oxygen equipments, nebulizer machine, standard walker, private caregive daily. Denies any other equipments/services. Feels safe to go back home, daughter able to assist with transportation and needs as necessary. DC plan to home once stable. CM to cont to follow up. Addendum: 11/16/19 at 1601 by ALE MONTGOMERY LVN CM Amended: Links added.
[2019-11-16 16:27] LABS: HEMATOCRIT 20.4 % (36-48)
[2019-11-16] MEDS: INSULIN HUMULIN R 100 UNIT/ML 3ML SQ SCH (16:30)
[2019-11-16 23:38] LABS: HEMATOCRIT 23.1 % (36-48); MEAN CORPUSCULAR HEMOGLOBIN 31.1 pg (27.0-33.0); MEAN CORPUSCULAR HGB CONC 32.9 g/dL (32.0-36.0); MEAN CORPUSCULAR VOLUME 94.7 fL (79-99); NUCLEATED RED BLOOD CELLS 0.2 % (0.0-0.19); RED BLOOD CELL COUNT(AUTO) 2.44 MIL/uL (4.00-5.50); RED CELL DISTRIBUTION WIDTH 16.2 % (11.0-15.5)
[2019-11-16 23:47] LABS: WHITE BLOOD COUNT (AUTO) 84.7 K/uL (4.8-10.8)
[2019-11-17] VITALS (25 sets, daily range): BP systolic 107–139; BP diastolic 35–73
[2019-11-17] MEDS: SODIUM CHLORIDE 0.9% 1000ML 1,000 ML IV SCH ×3 (00:15→20:47)
[2019-11-17] MEDS: INSULIN HUMULIN R 100 UNIT/ML 3ML SQ SCH ×5 (00:15→20:47)
--- NOTE | 2019-11-17 00:15 | NUR ---
ADMISSION PT AWAKE, ALERT AND VERBALLY RESPONSIVE. TRANSFERRED FROM ER INTO ROOM 319 VIA STRETCHER. OXYGEN VIA NC AT 2L/MIN, PT C/O SOB ON EXERTION. PORT-A-CATH ACCESSED TO RIGHT UPPER CHEST, INFUSING FLUIDS AND MEDICATION, DRESSING CLEAN/DRY/INTACT. PATIENT ORIENTED TO ROOM, CALL QUIÑONEZ WITHIN REACH, BED IN LOWEST POSITION. Addendum: 11/17/19 at 0057 by MARY SEAMAN RN Amended: Links added.
--- NOTE | 2019-11-17 00:30 | NUR ---
BLOODY STOOL PT WAS ASSISTED TO BATHROOM BY NURSE. X1 EPISODE OF DARK RED WITH SOME BRIGHT RED STOOL OBSERVED IN THE TOILET. WILL CONTINUE TO MONITOR.
[2019-11-17] MEDS ORDERED: DASA70TA PO (01:05)
[2019-11-17] MEDS ORDERED: [UNRECOGNIZED DRUG - CODE] PO (01:05)
[2019-11-17 05:17] LABS: HEMATOCRIT 22.2 % (36-48); MEAN CORPUSCULAR HEMOGLOBIN 31.3 pg (27.0-33.0); MEAN CORPUSCULAR HGB CONC 32.9 g/dL (32.0-36.0); MEAN CORPUSCULAR VOLUME 95.3 fL (79-99); NUCLEATED RED BLOOD CELLS 0.1 % (0.0-0.19); RED BLOOD CELL COUNT(AUTO) 2.33 MIL/uL (4.00-5.50); RED CELL DISTRIBUTION WIDTH 16.5 % (11.0-15.5)
[2019-11-17 05:21] LABS: WHITE BLOOD COUNT (AUTO) 79.1 K/uL (4.8-10.8)
--- NOTE | 2019-11-17 09:53 | NUR ---
PT ARRIVED BACK TO UNIT. AAO X3, DENIES ANY PAIN. VITAL SIGNS STABLE. WILL CONTINUE TO MONITOR.
[2019-11-17 11:17] LABS: HEMATOCRIT 22.3 % (36-48); MEAN CORPUSCULAR HEMOGLOBIN 30.8 pg (27.0-33.0); MEAN CORPUSCULAR HGB CONC 32.3 g/dL (32.0-36.0); MEAN CORPUSCULAR VOLUME 95.3 fL (79-99); NUCLEATED RED BLOOD CELLS 0.1 % (0.0-0.19); RED BLOOD CELL COUNT(AUTO) 2.34 MIL/uL (4.00-5.50); RED CELL DISTRIBUTION WIDTH 16.9 % (11.0-15.5)
[2019-11-17] MEDS: PANTOPRAZOLE SODIUM 80 MG in SODIUM CHLORIDE 0.9% 100 ML IV SCH (11:22)
[2019-11-17 11:40] LABS: WHITE BLOOD COUNT (AUTO) 75.5 K/uL (4.8-10.8)
[2019-11-17 11:41] LABS: PLATELET COUNT (AUTO) 718 K/uL (130-400)
[2019-11-17 12:01] LABS: BAND NEUTROPHILS % (MANUAL) 18 % (0-2); BASOPHILS % (MANUAL) 5 % (0-2); EOSINOPHILS % (MANUAL) 4 % (1-6); LYMPHOCYTES % (MANUAL) 5 % (22-44); MAN.DIFF COMMENT-IMPRESSION MANUAL DIFFERENTIAL; MONOCYTES % (MANUAL) 2 % (2-9); PLATELET MORPHOLOGY COMMENT MARKED INCREASE; SEGMENTED NEUTROPHILS % 66 % (40-70)
[2019-11-17] MEDS ORDERED: PHARMACY COMMUNICATION MISC SCH (13:15)
[2019-11-17] MEDS ORDERED: AMINOCAPROIC ACID 500 MG TABLET PO SCH (14:00)
[2019-11-17] MEDS: AMINOCAPROIC ACID 500 MG TABLET PO SCH ×6 (15:03→20:46)
[2019-11-17 17:30] LABS: HEMATOCRIT 22.1 % (36-48); MEAN CORPUSCULAR HGB CONC 32.1 g/dL (32.0-36.0); MEAN CORPUSCULAR VOLUME 96.5 fL (79-99); NUCLEATED RED BLOOD CELLS 0.1 % (0.0-0.19); RED BLOOD CELL COUNT(AUTO) 2.29 MIL/uL (4.00-5.50); RED CELL DISTRIBUTION WIDTH 16.9 % (11.0-15.5)
[2019-11-17 17:34] LABS: WHITE BLOOD COUNT (AUTO) 76.1 K/uL (4.8-10.8)
[2019-11-17 23:28] LABS: MEAN CORPUSCULAR HGB CONC 32.1 g/dL (32.0-36.0); MEAN CORPUSCULAR VOLUME 96.6 fL (79-99); NUCLEATED RED BLOOD CELLS 0.1 % (0.0-0.19); RED BLOOD CELL COUNT(AUTO) 2.03 MIL/uL (4.00-5.50); RED CELL DISTRIBUTION WIDTH 16.9 % (11.0-15.5)
[2019-11-17 23:32] LABS: HEMATOCRIT 19.6 % (36-48); WHITE BLOOD COUNT (AUTO) 63.8 K/uL (4.8-10.8)
[2019-11-18 00:07] VITALS: BP 99/45
[2019-11-18] MEDS: SODIUM CHLORIDE 0.9% 1000ML 1,000 ML IV SCH (03:49)
[2019-11-18 05:00] VITALS: BP 114/51
[2019-11-18] MEDS: INSULIN HUMULIN R 100 UNIT/ML 3ML SQ SCH ×2 (06:41→11:30)
[2019-11-18 07:30] VITALS: BP 121/50
[2019-11-18 08:14] LABS: HEMATOCRIT 24.7 % (36-48); MEAN CORPUSCULAR HEMOGLOBIN 30.8 pg (27.0-33.0); MEAN CORPUSCULAR HGB CONC 32.4 g/dL (32.0-36.0); NUCLEATED RED BLOOD CELLS 0.1 % (0.0-0.19); RED BLOOD CELL COUNT(AUTO) 2.6 MIL/uL (4.00-5.50); RED CELL DISTRIBUTION WIDTH 16.2 % (11.0-15.5)
[2019-11-18 08:28] LABS: CREATININE 1.7 mg/dL (0.5-1.5)
[2019-11-18 08:38] LABS: WHITE BLOOD COUNT (AUTO) 72.2 K/uL (4.8-10.8)
[2019-11-18] MEDS: PANTOPRAZOLE SODIUM 80 MG in SODIUM CHLORIDE 0.9% 100 ML IV SCH (09:26)
[2019-11-18] MEDS ORDERED: HEPARIN SODIUM/PF 100UNIT/ML 5ML SYRINGE IV SCH (11:00)
[2019-11-18 12:18] VITALS: BP 133/63
[2019-12-04] MEDS ORDERED: DASA70TA PO (22:53)
== END 2019-11-18 13:20 | disposition home or self-care (01) ==
LOC: EDH 08:12 → EDHIP 12:02 → 3CH 23:42
PROVIDERS: ADMIT Internal Medicine Critical Care Medicine; ATTEND Internal Medicine Critical Care Medicine
DX: K92.2 Gastrointestinal hemorrhage, unspecified (principal); K92.0 Hematemesis; D62 Acute posthemorrhagic anemia; N17.9 Acute kidney failure, unspecified; I13.2 Hypertensive heart and chronic kidney disease with heart failure and with stage 5 chronic kidney disease, or end stage renal disease; E11.22 Type 2 diabetes mellitus with diabetic chronic kidney disease; I50.9 Heart failure, unspecified; N18.6 End stage renal disease; I25.10 Atherosclerotic heart disease of native coronary artery without angina pectoris; D63.8 Anemia in other chronic diseases classified elsewhere; E78.5 Hyperlipidemia, unspecified; E11.51 Type 2 diabetes mellitus with diabetic peripheral angiopathy without gangrene; D47.3 Essential (hemorrhagic) thrombocythemia; D72.829 Elevated white blood cell count, unspecified; E78.00 Pure hypercholesterolemia, unspecified; Z85.6 Personal history of leukemia; Z92.21 Personal history of antineoplastic chemotherapy; Z86.14 Personal history of Methicillin resistant Staphylococcus aureus infection; Z95.0 Presence of cardiac pacemaker; Z95.2 Presence of prosthetic heart valve; Z90.49 Acquired absence of other specified parts of digestive tract; Z90.710 Acquired absence of both cervix and uterus; Z99.2 Dependence on renal dialysis; Z79.84 Long term (current) use of oral hypoglycemic drugs; Z79.899 Other long term (current) drug therapy; Z88.0 Allergy status to penicillin; Z88.5 Allergy status to narcotic agent
CPT/HCPCS: 36415 ×3; 36430 ×2; 43235; 80048 ×2; 80076; 82550; 82948 ×9; 83605; 83690; 84484; 85014; 85018; 85025; 85027 ×6; 85610; 85730; 86850; 86900; 86901; 86922 ×2; 87040 ×2; 93005; 96361 ×2; 96365; 96366 ×2; 96375; 99284; A4222; A4223; A4620; C9113 ×3; G0378 ×33; J0692; J1642; J7030; P9016 ×2

== ENCOUNTER 2019-11-25 06:56 | Inpatient (IN) | payer OTHER ==
[~2019-11-25] VITALS: Ht 152.4 cm; Wt 69.2 kg
[~2019-11-25 06:56] MED LIST changes: +DASA70TA PO; -TRAM50TA4 PO; +[UNRECOGNIZED DRUG - CODE] PO
[2019-11-25 07:43] LABS: BASOPHILS % (AUTO) 1.6 % (0.0-5.0); EOSINOPHILS % (AUTO) 3.6 % (0.0-8.0); LYMPHOCYTES % (AUTO) 3.6 % (21.0-51.0); MEAN CORPUSCULAR HEMOGLOBIN 31.1 pg (27.0-33.0); MEAN CORPUSCULAR HGB CONC 32.4 g/dL (32.0-36.0); MEAN CORPUSCULAR VOLUME 95.8 fL (79-99); MONOCYTES % (AUTO) 2.3 % (3.0-13.0); NEUTROPHILS % (AUTO) 82.9 % (40.0-77.0); NUCLEATED RED BLOOD CELLS 0.1 % (0.0-0.19); RED CELL DISTRIBUTION WIDTH 16.7 % (11.0-15.5)
[2019-11-25 07:52] LABS: HEMATOCRIT 18.2 % (36-48); PLATELET COUNT (AUTO) 798 K/uL (130-400); WHITE BLOOD COUNT (AUTO) 69.7 K/uL (4.8-10.8)
[2019-11-25 07:59] LABS: APPEARANCE,URINE CLOUDY (CLEAR); BILIRUBIN,URINE NEGATIVE (NEGATIVE); COLOR,URINE YELLOW (YELLOW); GLUCOSE, URINE (UA) NEGATIVE (NEGATIVE); KETONES,URINE NEGATIVE (NEGATIVE); LEUKOCYTE ESTERASE ,URINE LARGE (NEGATIVE); NITRATE,URINE POSITIVE (NEGATIVE); OCCULT BLOOD,URINE LARGE (NEGATIVE); PH,URINE 5.5 (5.0-8.0); PROTEIN,URINE 100 mg/dL (NEGATIVE); UROBILINOGEN,URINE 0.2 mg/dL (0.2-1.0)
[2019-11-25 07:59] LABS: INR 1.07 (0.85-1.15); PARTIAL THROMBOPLASTIN TIME 39.2 SEC (26.3-35.5); PROTHROMBIN TIME 11.5 SEC (9.6-11.6)
[2019-11-25 08:01] LABS: BILIRUBIN,TOTAL 0.4 mg/dL (0.2-1.0); CREATININE 2.2 mg/dL (0.5-1.5); POTASSIUM 3.4 mmol/L (3.5-5.1); TOTAL PROTEIN, SERUM 5.1 g/dL (6.0-8.3)
[2019-11-25 08:15] LABS: B-TYPE NATRIURETIC PEPTIDE 267 pg/mL (0-100)
[2019-11-25 08:52] LABS: EOSINOPHILS % (MANUAL) 5 % (1-6); LYMPHOCYTES % (MANUAL) 8 % (22-44); MAN.DIFF COMMENT-IMPRESSION MANUAL DIFFERENTIAL; MONOCYTES % (MANUAL) 1 % (2-9); PLATELET MORPHOLOGY COMMENT INCREASED; SEGMENTED NEUTROPHILS % 86 % (40-70)
[2019-11-25] MEDS ORDERED: HYDROMORPHONE HCL 0.5 MG/0.5 ML ML IVP PRN (09:00)
[2019-11-25] MEDS ORDERED: ONDANSETRON HCL 4 MG/2 ML VIAL ONE ×2 (09:00→19:47)
[2019-11-25] MEDS ORDERED: HYDROMORPHONE 1 MG/1 ML AMP IVP PRN (09:00)
[2019-11-25] MEDS ORDERED: ACETAMINOPHEN 325 MG TAB PO PRN (09:00)
[2019-11-25] MEDS ORDERED: ONDANSETRON HCL 4 MG/2 ML VIAL IVP PRN (09:00)
[2019-11-25] MEDS: SODIUM CHLORIDE 0.9% 1000ML 1,000 ML IV SCH ×2 (09:00→22:06)
[2019-11-25] MEDS: PANTOPRAZOLE 40 MG/VIAL IVP SCH ×2 (09:00→21:00)
[2019-11-25 09:11] LABS: BACTERIA,URINE Moderate /HPF (None Seen); WBC,URINE 26-50 /HPF (0-1)
--- NOTE | 2019-11-25 12:15 | NUR ---
DCP SW spoke to daughter Brandi Tse . Pt is semi-independent prior to admission, lives at home with spouse Rigo Muniz, daughter lives close by. Pt has oxygen, nebulizer, standard walker, private caregiver daily for 6hrs. Daughter denies any other equipment/services needed. Feels safe to go back home, daughter able to assist with transportation and needs as necessary. DC plan to home once stable. CM to cont to follow up.
[2019-11-25] MEDS: AMINOCAPROIC ACID 500 MG TABLET PO SCH ×6 (15:00→22:21)
[2019-11-25] MEDS ORDERED: HYDROMORPHONE 1 MG/1 ML AMP ONE (19:47)
[2019-11-25 21:20] VITALS: BP 127/46
[2019-11-26] VITALS (18 sets, daily range): BP systolic 95–128; BP diastolic 38–59
[2019-11-26 04:32] LABS: HEMATOCRIT 22.7 % (36-48); MEAN CORPUSCULAR VOLUME 93.8 fL (79-99); NUCLEATED RED BLOOD CELLS 0.1 % (0.0-0.19); RED BLOOD CELL COUNT(AUTO) 2.42 MIL/uL (4.00-5.50); RED CELL DISTRIBUTION WIDTH 16.4 % (11.0-15.5)
[2019-11-26 05:34] LABS: CREATININE 1.8 mg/dL (0.5-1.5); PHOSPHORUS 5.7 mg/dL (2.5-4.9); POTASSIUM 3.7 mmol/L (3.5-5.1)
[2019-11-26 07:17] LABS: MAGNESIUM 1.9 mg/dL (1.80-2.40)
[2019-11-26] MEDS ORDERED: PROPOFOL 10 MG/ML 20ML VIAL IV ONE (07:28)
[2019-11-26] MEDS ORDERED: SODIUM CHLORIDE 0.9% 10 ML VIAL ONE (07:42)
[2019-11-26] MEDS ORDERED: PHENYLEPHRINE HCL 10 MG/ML 1ML VIAL IV ONE (07:42)
[2019-11-26] MEDS ORDERED: CYAN50005 PO (09:05)
[2019-11-26] MEDS ORDERED: CEFD300C3 PO (09:05)
[2019-11-26] MEDS: PANTOPRAZOLE SODIUM 40 MG TABLET.DR PO SCH ×2 (09:08→17:19)
[2019-11-26] MEDS ORDERED: CEFTRIAXONE SODIUM 1 GM IVP SCH (14:00)
[2019-11-26] MEDS: AMINOCAPROIC ACID 500 MG TABLET PO SCH ×2 (14:00→20:27)
[2019-11-26] MEDS: SODIUM CHLORIDE 0.9% 1000ML 1,000 ML IV SCH (14:24)
[2019-11-26] MEDS: SUCRALFATE 1 GM TABLET PO SCH (17:19)
[2019-11-26] MEDS: METOPROLOL TARTRATE 50 MG TAB PO SCH (20:41)
[2019-11-26] MEDS: ATORVASTATIN CALCIUM 10 MG TABLET PO SCH (20:41)
[2019-11-26] MEDS: FERROUS SULFATE 325 MG TABLET.DR PO SCH (20:41)
[2019-11-26] MEDS: TORSEMIDE 20 MG TAB PO SCH (20:41)
[2019-11-27] VITALS (9 sets, daily range): BP systolic 84–134; BP diastolic 40–65
[2019-11-27] MEDS: SODIUM CHLORIDE 0.9% 1000ML 1,000 ML IV SCH (02:58)
[2019-11-27 03:25] LABS: HEMATOCRIT 22.8 % (36-48); MEAN CORPUSCULAR HEMOGLOBIN 31.1 pg (27.0-33.0); MEAN CORPUSCULAR HGB CONC 32.9 g/dL (32.0-36.0); MEAN CORPUSCULAR VOLUME 94.6 fL (79-99); NUCLEATED RED BLOOD CELLS 0.1 % (0.0-0.19); PLATELET COUNT (AUTO) 530 K/uL (130-400); RED BLOOD CELL COUNT(AUTO) 2.41 MIL/uL (4.00-5.50); RED CELL DISTRIBUTION WIDTH 16.5 % (11.0-15.5)
[2019-11-27 03:28] LABS: WHITE BLOOD COUNT (AUTO) 39.8 K/uL (4.8-10.8)
[2019-11-27 03:45] LABS: CREATININE 1.6 mg/dL (0.5-1.5); POTASSIUM 3.5 mmol/L (3.5-5.1)
[2019-11-27 04:11] LABS: BAND NEUTROPHILS % (MANUAL) 6 % (0-2); BASOPHILS % (MANUAL) 2 % (0-2); EOSINOPHILS % (MANUAL) 5 % (1-6); LYMPHOCYTES % (MANUAL) 4 % (22-44); MAN.DIFF COMMENT-IMPRESSION MANUAL DIFFERENTIAL; SEGMENTED NEUTROPHILS % 83 % (40-70)
[2019-11-27 04:12] LABS: PLATELET MORPHOLOGY COMMENT MARKED INCREASE
[2019-11-27] MEDS: PANTOPRAZOLE SODIUM 40 MG TABLET.DR PO SCH ×2 (06:47→16:42)
[2019-11-27] MEDS: SUCRALFATE 1 GM TABLET PO SCH ×3 (06:47→16:42)
[2019-11-27] MEDS: CHOLECALCIFEROL 2000 UNIT PO SCH (09:00)
[2019-11-27] MEDS: AMINOCAPROIC ACID 500 MG TABLET PO SCH ×3 (09:00→20:06)
[2019-11-27] MEDS: Vitamin B Complex/Vit C/Folic Acid PO SCH (10:12)
[2019-11-27] MEDS: CYANOCOBALAMIN (VITAMIN B-12) 1,000 MCG TABLET PO SCH (10:12)
[2019-11-27] MEDS: LINAGLIPTIN 5 MG TABLET PO SCH (10:12)
[2019-11-27] MEDS: TORSEMIDE 20 MG TAB PO SCH ×2 (10:12→21:57)
[2019-11-27] MEDS: GABAPENTIN 100 MG CAPSULE PO SCH (10:13)
[2019-11-27] MEDS: METOPROLOL TARTRATE 50 MG TAB PO SCH ×2 (10:13→21:55)
[2019-11-27] MEDS: FERROUS SULFATE 325 MG TABLET.DR PO SCH ×2 (10:13→21:55)
[2019-11-27] MEDS: FOLIC ACID 1 MG TABLET PO SCH (10:17)
[2019-11-27] MEDS: MEROPENEM 1 GM VIAL IVP SCH (14:15)
[2019-11-27] MEDS: ATORVASTATIN CALCIUM 10 MG TABLET PO SCH (21:55)
[2019-11-28] MEDS: MEROPENEM 1 GM VIAL IVP SCH ×2 (02:12→13:35)
[2019-11-28 04:00] VITALS: BP 127/52
[2019-11-28 04:26] LABS: HEMATOCRIT 24.5 % (36-48); MEAN CORPUSCULAR HEMOGLOBIN 30.9 pg (27.0-33.0); MEAN CORPUSCULAR HGB CONC 32.2 g/dL (32.0-36.0); MEAN CORPUSCULAR VOLUME 95.7 fL (79-99); NUCLEATED RED BLOOD CELLS 0.1 % (0.0-0.19); RED BLOOD CELL COUNT(AUTO) 2.56 MIL/uL (4.00-5.50); RED CELL DISTRIBUTION WIDTH 16.3 % (11.0-15.5); WHITE BLOOD COUNT (AUTO) 28.3 K/uL (4.8-10.8)
[2019-11-28 04:38] LABS: CREATININE 1.4 mg/dL (0.5-1.5); POTASSIUM 3.1 mmol/L (3.5-5.1)
[2019-11-28 08:00] VITALS: BP 128/61
[2019-11-28] MEDS: METOPROLOL TARTRATE 50 MG TAB PO SCH ×2 (09:23→21:05)
[2019-11-28] MEDS: CYANOCOBALAMIN (VITAMIN B-12) 1,000 MCG TABLET PO SCH (09:23)
[2019-11-28] MEDS: LINAGLIPTIN 5 MG TABLET PO SCH (09:23)
[2019-11-28] MEDS: AMINOCAPROIC ACID 500 MG TABLET PO SCH ×3 (09:24→21:05)
[2019-11-28] MEDS: TORSEMIDE 20 MG TAB PO SCH ×2 (09:24→21:00)
[2019-11-28] MEDS: FERROUS SULFATE 325 MG TABLET.DR PO SCH ×2 (09:25→21:05)
[2019-11-28] MEDS: PANTOPRAZOLE SODIUM 40 MG TABLET.DR PO SCH ×2 (09:25→16:25)
[2019-11-28] MEDS: FOLIC ACID 1 MG TABLET PO SCH (09:25)
[2019-11-28] MEDS: Vitamin B Complex/Vit C/Folic Acid PO SCH (09:25)
[2019-11-28] MEDS: GABAPENTIN 100 MG CAPSULE PO SCH (09:26)
[2019-11-28] MEDS: CHOLECALCIFEROL 2000 UNIT PO SCH (09:29)
[2019-11-28] MEDS: SUCRALFATE 1 GM TABLET PO SCH ×3 (09:34→16:25)
[2019-11-28 11:30] VITALS: BP 113/48
[2019-11-28] MEDS ORDERED: POTASSIUM CHLORIDE 10% ELIXIR 20 MEQ/15 ML UDCUP PO PRN (13:30)
[2019-11-28] MEDS ORDERED: LIDOCAINE HCL-MPF 1% 2ML VIAL IJ PRN (13:30)
[2019-11-28] MEDS ORDERED: POTASSIUM CHLORIDE 10MEQ/100ML 100 ML IV PRN (13:30)
[2019-11-28] MEDS: POTASSIUM CHLORIDE 20 MEQ ERTAB PO PRN ×3 (14:19→16:25)
[2019-11-28 17:12] VITALS: BP 113/39
[2019-11-28 18:55] VITALS: BP 110/43
--- NOTE | 2019-11-28 20:00 | NUR ---
Patient a/ox3. Resting in bed. Denies pain or sob at this time. Pale in color. Stated she had one tarry stool today. Right upper chest access flushes and has good blood return. Patient refused pm torsemide. She said she didn't want to urinate all night. Wearing a brief, is incontinent. Will continent to monitor.
[2019-11-28] MEDS: ATORVASTATIN CALCIUM 10 MG TABLET PO SCH (21:05)
[2019-11-28 23:24] VITALS: BP 109/50
[2019-11-29] MEDS: MEROPENEM 1 GM VIAL IVP SCH ×2 (01:12→16:53)
[2019-11-29 04:26] VITALS: BP 131/60
[2019-11-29] MEDS: PANTOPRAZOLE SODIUM 40 MG TABLET.DR PO SCH ×2 (05:39→16:53)
[2019-11-29] MEDS: SUCRALFATE 1 GM TABLET PO SCH ×3 (05:39→16:53)
[2019-11-29 06:01] LABS: HEMATOCRIT 24.4 % (36-48); MEAN CORPUSCULAR HEMOGLOBIN 31.2 pg (27.0-33.0); MEAN CORPUSCULAR HGB CONC 32.4 g/dL (32.0-36.0); MEAN CORPUSCULAR VOLUME 96.4 fL (79-99); RED BLOOD CELL COUNT(AUTO) 2.53 MIL/uL (4.00-5.50); RED CELL DISTRIBUTION WIDTH 15.9 % (11.0-15.5); WHITE BLOOD COUNT (AUTO) 20.8 K/uL (4.8-10.8)
[2019-11-29] MEDS: TORSEMIDE 20 MG TAB PO SCH ×2 (06:16→16:53)
[2019-11-29 06:26] LABS: ALBUMIN 2.9 g/dL (3.5-5.0); BILIRUBIN,TOTAL 0.4 mg/dL (0.2-1.0); CREATININE 1.6 mg/dL (0.5-1.5); MAGNESIUM 1.9 mg/dL (1.80-2.40); POTASSIUM 3.4 mmol/L (3.5-5.1); TOTAL PROTEIN, SERUM 5.1 g/dL (6.0-8.3)
[2019-11-29] MEDS: POTASSIUM CHLORIDE 20 MEQ ERTAB PO PRN (06:41)
[2019-11-29 08:14] VITALS: BP 125/48
[2019-11-29] MEDS: CHOLECALCIFEROL 2000 UNIT PO SCH (09:00)
[2019-11-29] MEDS: GABAPENTIN 100 MG CAPSULE PO SCH (10:28)
[2019-11-29] MEDS: Vitamin B Complex/Vit C/Folic Acid PO SCH (10:28)
[2019-11-29] MEDS: CYANOCOBALAMIN (VITAMIN B-12) 1,000 MCG TABLET PO SCH (10:28)
[2019-11-29] MEDS: METOPROLOL TARTRATE 50 MG TAB PO SCH ×2 (10:28→20:44)
[2019-11-29] MEDS: FERROUS SULFATE 325 MG TABLET.DR PO SCH ×2 (10:28→20:44)
[2019-11-29] MEDS: AMINOCAPROIC ACID 500 MG TABLET PO SCH ×3 (10:29→20:44)
[2019-11-29] MEDS: LINAGLIPTIN 5 MG TABLET PO SCH (10:29)
[2019-11-29] MEDS: FOLIC ACID 1 MG TABLET PO SCH (10:29)
[2019-11-29 11:37] VITALS: BP 119/48
[2019-11-29 16:33] VITALS: BP 131/59
[2019-11-29 19:22] VITALS: BP 124/63
[2019-11-29] MEDS: ATORVASTATIN CALCIUM 10 MG TABLET PO SCH (20:44)
[2019-11-30] MEDS: MEROPENEM 1 GM VIAL IVP SCH ×2 (02:59→15:19)
[2019-11-30 03:30] VITALS: BP 94/40
[2019-11-30 05:06] LABS: HEMATOCRIT 25.7 % (36-48); MEAN CORPUSCULAR HEMOGLOBIN 31.5 pg (27.0-33.0); MEAN CORPUSCULAR HGB CONC 32.7 g/dL (32.0-36.0); MEAN CORPUSCULAR VOLUME 96.3 fL (79-99); RED BLOOD CELL COUNT(AUTO) 2.67 MIL/uL (4.00-5.50); RED CELL DISTRIBUTION WIDTH 15.7 % (11.0-15.5); WHITE BLOOD COUNT (AUTO) 26.5 K/uL (4.8-10.8)
[2019-11-30] MEDS: TORSEMIDE 20 MG TAB PO SCH ×3 (05:21→15:26)
[2019-11-30 05:22] LABS: CREATININE 1.5 mg/dL (0.5-1.5); POTASSIUM 3.3 mmol/L (3.5-5.1)
[2019-11-30] MEDS: PANTOPRAZOLE SODIUM 40 MG TABLET.DR PO SCH ×2 (06:03→15:19)
[2019-11-30] MEDS: POTASSIUM CHLORIDE 20 MEQ ERTAB PO PRN ×2 (06:04→08:39)
[2019-11-30] MEDS: SUCRALFATE 1 GM TABLET PO SCH ×3 (06:08→16:32)
[2019-11-30 08:20] VITALS: BP 108/44
[2019-11-30] MEDS: LINAGLIPTIN 5 MG TABLET PO SCH (08:39)
[2019-11-30] MEDS: FOLIC ACID 1 MG TABLET PO SCH (08:41)
[2019-11-30] MEDS: FERROUS SULFATE 325 MG TABLET.DR PO SCH ×2 (08:41→20:27)
[2019-11-30] MEDS: METOPROLOL TARTRATE 50 MG TAB PO SCH ×2 (08:41→20:28)
[2019-11-30] MEDS: GABAPENTIN 100 MG CAPSULE PO SCH (08:41)
[2019-11-30] MEDS: AMINOCAPROIC ACID 500 MG TABLET PO SCH ×3 (08:41→20:27)
[2019-11-30] MEDS: Vitamin B Complex/Vit C/Folic Acid PO SCH (08:46)
[2019-11-30] MEDS: CHOLECALCIFEROL 2000 UNIT PO SCH (08:46)
[2019-11-30] MEDS: CYANOCOBALAMIN (VITAMIN B-12) 1,000 MCG TABLET PO SCH (08:47)
[2019-11-30] MEDS: ALTEPLASE 2 MG/VIAL IVCATH SCH (10:37)
--- NOTE | 2019-11-30 10:40 | NUR ---
i inserted cath flow in pt's port-a-cath on right chest to assist with it not giving back blood return; will not use while medication instilled and recheck in 1/2 hour to see if working.
--- NOTE | 2019-11-30 11:40 | NUR ---
port a cath now given blood return; aspirated 3cc of blood and flushed with normal saline;
[2019-11-30 11:59] VITALS: BP 102/52
--- NOTE | 2019-11-30 15:26 | NUR ---
pt requested to take her demadex now instead of at bedtime and to take only 20mg not 40mg as ordered; she states that at home she only takes 20mg in the afternoon
--- NOTE | 2019-11-30 16:58 | NUR ---
CM NOTE/DCP PER NURSE, DR. GOMEZ STATED PATIENT IS TO HAVE 10 DAYS OF IV ANTIBIOTICS. PAGED REGARDING STATEMENT AND IF 10 DAYS OF IV ABT FROM NOW OR FROM PREVIOUS START DATE, PENDING CALL BACK. MEET WITH PATIENT IN ROOM. PER PATIENT, WITH DIAGNOSIS OF LEUKEMIA, SHE DECLINED SNF AND [facility]. PATIENT REQUESTING HOME HEALTH WITH PT AND IV ANTIBIOTICS, PENDING DR. GOMEZ CALL BACK TO INFORM AND CLARIFY STATEMENT. MYRON ARREOLA, MADE AWARE OF PENDING ORDERS AND ASKED TO PAGE DR. GOMEZ WELL.
[2019-11-30 19:49] VITALS: BP 111/54
[2019-11-30] MEDS: ATORVASTATIN CALCIUM 10 MG TABLET PO SCH (20:27)
[2019-11-30 23:37] VITALS: BP 85/37
[2019-12-01] MEDS: MEROPENEM 1 GM VIAL IVP SCH ×2 (02:20→14:03)
[2019-12-01 04:00] VITALS: BP 117/58
[2019-12-01] MEDS: TORSEMIDE 20 MG TAB PO SCH ×2 (05:59→16:48)
[2019-12-01 06:08] LABS: HEMATOCRIT 24.8 % (36-48); MEAN CORPUSCULAR HEMOGLOBIN 31.2 pg (27.0-33.0); MEAN CORPUSCULAR HGB CONC 31.5 g/dL (32.0-36.0); MEAN CORPUSCULAR VOLUME 99.2 fL (79-99); RED BLOOD CELL COUNT(AUTO) 2.5 MIL/uL (4.00-5.50); RED CELL DISTRIBUTION WIDTH 15.9 % (11.0-15.5); WHITE BLOOD COUNT (AUTO) 22.3 K/uL (4.8-10.8)
[2019-12-01 06:18] LABS: CREATININE 1.7 mg/dL (0.5-1.5); POTASSIUM 3.2 mmol/L (3.5-5.1)
[2019-12-01] MEDS: PANTOPRAZOLE SODIUM 40 MG TABLET.DR PO SCH ×2 (06:36→16:48)
[2019-12-01] MEDS: POTASSIUM CHLORIDE 20 MEQ ERTAB PO PRN ×3 (06:37→14:02)
[2019-12-01] MEDS: SUCRALFATE 1 GM TABLET PO SCH ×3 (07:07→16:48)
[2019-12-01 08:09] VITALS: BP 123/45
[2019-12-01] MEDS: CYANOCOBALAMIN (VITAMIN B-12) 1,000 MCG TABLET PO SCH (09:00)
[2019-12-01] MEDS: Vitamin B Complex/Vit C/Folic Acid PO SCH (09:00)
[2019-12-01] MEDS: CHOLECALCIFEROL 2000 UNIT PO SCH (09:00)
[2019-12-01] MEDS: ALTEPLASE 2 MG/VIAL IVCATH SCH (09:30)
[2019-12-01] MEDS: FERROUS SULFATE 325 MG TABLET.DR PO SCH ×2 (09:32→19:55)
[2019-12-01] MEDS: LINAGLIPTIN 5 MG TABLET PO SCH (09:33)
[2019-12-01] MEDS: FOLIC ACID 1 MG TABLET PO SCH (09:33)
[2019-12-01] MEDS: GABAPENTIN 100 MG CAPSULE PO SCH (09:33)
[2019-12-01] MEDS: AMINOCAPROIC ACID 500 MG TABLET PO SCH ×3 (09:33→19:55)
[2019-12-01] MEDS: METOPROLOL TARTRATE 50 MG TAB PO SCH ×2 (09:33→19:55)
[2019-12-01 11:43] VITALS: BP 101/46
--- NOTE | 2019-12-01 15:11 | NUR ---
CM NOTE/[facility] NEW ORDER FOR HOME HEALTH WITH IV ABT. MEET WITH PATIENT IN ROOM, OPTIONS GIVEN BASED ON INSURANCE. FLO FILLED FOR HOME HEALTH IN NETWORK. CLINICAL PACKET FAXED TO [facility] FOR IV ANTIBIOTICS AND [facility] FOR NURSING ADMINISTRATION. PER PATIENT, DAUGHTER IS WILLING TO LEARN TO ADMINISTER SINCE ORDER FOR IV IS BID. PENDING PROCESS AND AUTHORIZATION, CM TO FOLLOW UP.
[2019-12-01 17:42] VITALS: BP 116/55
[2019-12-01] MEDS: ATORVASTATIN CALCIUM 10 MG TABLET PO SCH (19:55)
[2019-12-01 20:00] VITALS: BP 105/50
[2019-12-02 00:07] VITALS: BP 106/41
[2019-12-02] MEDS: MEROPENEM 1 GM VIAL IVP SCH ×2 (02:59→14:26)
--- NOTE | 2019-12-02 03:30 | NUR ---
PT HAVING LOW BLOOD PRESSURES AT THIS TIME. 90S/30S. NO DISTRESS NOTED. STATES SHE FEELS OK. BESIDES A MINOR EPISODE OF NIGHT SWEATS.
[2019-12-02 04:26] LABS: HEMATOCRIT 23.1 % (36-48); MEAN CORPUSCULAR HEMOGLOBIN 31.5 pg (27.0-33.0); MEAN CORPUSCULAR VOLUME 98.3 fL (79-99); RED BLOOD CELL COUNT(AUTO) 2.35 MIL/uL (4.00-5.50); RED CELL DISTRIBUTION WIDTH 16.1 % (11.0-15.5); WHITE BLOOD COUNT (AUTO) 21.2 K/uL (4.8-10.8)
[2019-12-02 04:35] LABS: CREATININE 1.5 mg/dL (0.5-1.5); POTASSIUM 3.3 mmol/L (3.5-5.1)
[2019-12-02] MEDS: TORSEMIDE 20 MG TAB PO SCH (05:13)
[2019-12-02 05:27] VITALS: BP 103/41
[2019-12-02] MEDS: SUCRALFATE 1 GM TABLET PO SCH ×2 (06:46→12:07)
[2019-12-02] MEDS: PANTOPRAZOLE SODIUM 40 MG TABLET.DR PO SCH (06:46)
[2019-12-02] MEDS: POTASSIUM CHLORIDE 20 MEQ ERTAB PO PRN ×2 (06:50→09:55)
[2019-12-02 07:00] VITALS: BP 105/49
[2019-12-02] MEDS: CHOLECALCIFEROL 2000 UNIT PO SCH (09:00)
[2019-12-02] MEDS: CYANOCOBALAMIN (VITAMIN B-12) 1,000 MCG TABLET PO SCH (09:00)
[2019-12-02] MEDS: FOLIC ACID 1 MG TABLET PO SCH (09:54)
[2019-12-02] MEDS: LINAGLIPTIN 5 MG TABLET PO SCH (09:54)
[2019-12-02] MEDS: AMINOCAPROIC ACID 500 MG TABLET PO SCH ×2 (09:54→14:26)
[2019-12-02] MEDS: Vitamin B Complex/Vit C/Folic Acid PO SCH (09:54)
[2019-12-02] MEDS: FERROUS SULFATE 325 MG TABLET.DR PO SCH (09:54)
[2019-12-02] MEDS: GABAPENTIN 100 MG CAPSULE PO SCH (09:55)
[2019-12-02] MEDS: METOPROLOL TARTRATE 50 MG TAB PO SCH (09:55)
[2019-12-02 11:00] VITALS: BP 103/41
--- NOTE | 2019-12-02 11:50 | NUR ---
cm note met with pt and pt states she has spoken to her daughter and is in agreement to be taught how to give anitibiotic tx, nurse will go and teach, also states has a friend named nestor and will assist as well. also. agustínomed received call from Tatyana at [facility] [phone] -for iv meds and will deliver med this evening, and also received call from [facility] [phone] who states they will be providiing iv antibiotics therapy and teaching family as well. both have accepted pt and will followup after dc. updated nurse to call report at dc. phone # provided to pt. pt verbalizes understanding.
[2019-12-02] MEDS ORDERED: MERO1VIA23 IV (15:06)
[2019-12-02] MEDS ORDERED: METO25 PO (15:06)
[2019-12-02 16:11] VITALS: BP 97/53
--- NOTE | 2019-12-02 16:50 | NUR ---
DISCHARGE INSTRUCTIONS GIVEN TO PATIENT, MADE AWARE OF ALL NEW ORDERS, AND MEDICATION CHANGES. MADE AWARE OF FOLLOW UP APPOINTMENTS. PATIENT AT THIS TIME AAOX4, DENIES PAIN, DENIES SHORTNESS OF BREATH. CONTINUES WITH O2 AT 2LPM, STATES HER DAUGHTER IS BRINGING HER HOME O2 TANK FOR TRANSPORT HOME. PATIENT WILL BE DISCHARGED WITH RIGHT CHEST PORT A CATH ACCESSED. HOME HEALTH AWARE AND WILL BE USING ACCESS FOR ADMINISTRATION OF IV ANTIBIOTIC. TELE REMOVED. PATIENT WILL BE PICKED UP BY DAUGHTER
--- NOTE | 2019-12-02 18:56 | NUR ---
REPORT GIVEN TO TAM QIU RN WITH [facility]. MADE AWARE OF ACCESSED PORT, ANTIBIOTIC ORDERS, AND PATIENT CONDITION
[2019-12-04] MEDS ORDERED: DASA70TA PO (22:53)
== END 2019-12-02 17:06 | disposition home health service (06) | DRG 872 ==
LOC: EDH 06:56 → EDHIP 08:10 → 4BH 21:15
PROVIDERS: ADMIT Internal Medicine Nephrology; ATTEND Internal Medicine Nephrology
PROC: 30233N1 Transfusion of Nonautologous Red Blood Cells into Peripheral Vein, Percutaneous Approach (ICD-10-PCS; principal; 2019-11-26)
PROC: 0DJ08ZZ Inspection of Upper Intestinal Tract, Via Natural or Artificial Opening Endoscopic (ICD-10-PCS; 2019-11-26)
DX: A41.9 Sepsis, unspecified organism (principal); K92.1 Melena; C92.10 Chronic myeloid leukemia, BCR/ABL-positive, not having achieved remission; I13.0 Hypertensive heart and chronic kidney disease with heart failure and stage 1 through stage 4 chronic kidney disease, or unspecified chronic kidney disease; N17.9 Acute kidney failure, unspecified; Z16.12 Extended spectrum beta lactamase (ESBL) resistance; N39.0 Urinary tract infection, site not specified; N18.4 Chronic kidney disease, stage 4 (severe); D50.0 Iron deficiency anemia secondary to blood loss (chronic); N18.9 Chronic kidney disease, unspecified; E11.22 Type 2 diabetes mellitus with diabetic chronic kidney disease; E78.5 Hyperlipidemia, unspecified; D50.9 Iron deficiency anemia, unspecified; D47.3 Essential (hemorrhagic) thrombocythemia; I25.10 Atherosclerotic heart disease of native coronary artery without angina pectoris; I50.9 Heart failure, unspecified; R62.7 Adult failure to thrive; Z66 Do not resuscitate; Z68.29 Body mass index [BMI] 29.0-29.9, adult; Z95.2 Presence of prosthetic heart valve; Z95.0 Presence of cardiac pacemaker; Z86.14 Personal history of Methicillin resistant Staphylococcus aureus infection; Z90.710 Acquired absence of both cervix and uterus; Z88.0 Allergy status to penicillin; Z88.5 Allergy status to narcotic agent; Z80.42 Family history of malignant neoplasm of prostate
CPT/HCPCS: 36415; 43235; 71045; 80048; 80053; 81001; 82150; 82948; 83690; 83735; 83880; 84100; 84484; 85025; 85027; 85610; 85730; 86850; 86900; 86901; 86922; 87077; 87088; 87186; 93005; C9113; G0378; J0696; J1170; J2185; J2370; J2405; J2704; J2997; J7030; P9016

== ENCOUNTER 2019-12-04 14:04 | Observation (INO) | payer OTHER ==
[~2019-12-04] VITALS: Ht 162.6 cm; Wt 66.1 kg
[2019-12-04] MEDS ORDERED: SODIUM CHLORIDE 0.9% 250 ML IV ONE (17:39)
[2019-12-04 21:57] VITALS: BP 124/86; PULSE 69; RESP 18; TEMP 97.6
[2019-12-04 23:25] VITALS: BP 108/53; PULSE 68; RESP 18; TEMP 97.6
[2019-12-05 03:29] VITALS: BP 109/40; PULSE 73; RESP 18; TEMP 98.2
[2019-12-05 08:00] VITALS: BP 109/53; PULSE 62; RESP 20; TEMP 96.1
[2019-12-05] MEDS: PANTOPRAZOLE 40 MG/VIAL IVP SCH (09:05)
[2019-12-05] MEDS: FERROUS SULFATE 325 MG TABLET.DR PO SCH ×2 (10:15→20:29)
[2019-12-05] MEDS: FOLIC ACID/VITAMIN B COMP W-C 1 CAP TAB PO SCH (10:15)
[2019-12-05] MEDS: SUCRALFATE 1 GM TABLET PO SCH ×2 (11:30→16:30)
[2019-12-05 11:51] VITALS: BP 127/64; PULSE 77; RESP 17; TEMP 97.9
[2019-12-05 16:00] VITALS: BP 164/58; PULSE 81; RESP 19; TEMP 96.3
[2019-12-05 20:24] VITALS: BP 134/56; PULSE 67; RESP 16; TEMP 98
[2019-12-05] MEDS: AMINOCAPROIC ACID 500 MG TABLET PO SCH ×3 (20:30→23:31)
[2019-12-05] MEDS: MEROPENEM 1 GM VIAL IV SCH (21:00)
[2019-12-06 00:24] VITALS: BP 110/45; PULSE 73; RESP 18; TEMP 97.5
[2019-12-06] MEDS: AMINOCAPROIC ACID 500 MG TABLET PO SCH (00:37)
[2019-12-06 04:24] VITALS: BP 109/48; PULSE 62; RESP 18; TEMP 97.7
[2019-12-06] MEDS: SUCRALFATE 1 GM TABLET PO SCH ×3 (06:50→16:55)
[2019-12-06 07:56] VITALS: BP 98/40; PULSE 74; RESP 18; TEMP 98
[2019-12-06] MEDS: PANTOPRAZOLE 40 MG/VIAL IVP SCH (08:44)
[2019-12-06] MEDS: MEROPENEM 1 GM VIAL IV SCH ×2 (08:44→20:30)
[2019-12-06] MEDS: FERROUS SULFATE 325 MG TABLET.DR PO SCH ×2 (08:45→20:31)
[2019-12-06] MEDS: FOLIC ACID 1 MG TABLET PO SCH (08:45)
[2019-12-06] MEDS: FOLIC ACID/VITAMIN B COMP W-C 1 CAP TAB PO SCH (08:45)
[2019-12-06 11:39] VITALS: BP 108/51; PULSE 76; RESP 18; TEMP 97.8
--- NOTE | 2019-12-06 11:46 | NUR ---
DCP CM met with pt discussed dc plans. Pt is semi-independent prior to admission, lives at home with spouse. Pt has oxygen, nebulizer machine, walker, private caregiver 6hrs/day, and [facility]. Denies any other equipments/services. Feels safe to go back home, spouse and daughter able to assist with transportation and needs as necessary. DC plan to home once stable. CM to cont to follow up. Addendum: 12/06/19 at 1150 by ALE MONTGOMERY LVN CM Amended: Links added.
[2019-12-06 15:40] VITALS: BP 120/56; PULSE 72; RESP 18; TEMP 98.6
[2019-12-06 19:51] VITALS: BP 120/53; PULSE 75; RESP 18; TEMP 98
[2019-12-06] MEDS: HYDROCORTISONE 25 MG SUPPOSITORY PR SCH (20:31)
[2019-12-07] VITALS: BP 100/49; PULSE 80; RESP 18; TEMP 98.7
[2019-12-07 04:00] VITALS: BP 116/63; PULSE 78; RESP 18; TEMP 97.8
[2019-12-07 07:30] VITALS: BP 137/51; PULSE 84; RESP 18; TEMP 97.8
[2019-12-07] MEDS: PANTOPRAZOLE 40 MG/VIAL IVP SCH (10:52)
[2019-12-07] MEDS: FERROUS SULFATE 325 MG TABLET.DR PO SCH (10:52)
[2019-12-07] MEDS: FOLIC ACID 1 MG TABLET PO SCH (10:52)
[2019-12-07] MEDS: FOLIC ACID/VITAMIN B COMP W-C 1 CAP TAB PO SCH (10:52)
[2019-12-07] MEDS: MEROPENEM 1 GM VIAL IV SCH ×2 (10:52→17:37)
[2019-12-07] MEDS: SUCRALFATE 1 GM TABLET PO SCH ×3 (10:53→17:00)
[2019-12-07] MEDS: HYDROCORTISONE 25 MG SUPPOSITORY PR SCH (10:59)
[2019-12-07 11:00] VITALS: BP 139/59; PULSE 78; RESP 20; TEMP 97.9
--- NOTE | 2019-12-07 11:50 | NUR ---
PAGED DR. LARSON CALLED 'S OFFICE TO PAGE REGARDING CONSULT.
--- NOTE | 2019-12-07 13:30 | NUR ---
DR. CONCHITA MALLORY HERE TO SEE PATIENT. DR. ARANGO TOLD ME HE SPOKE TO DR. CASPER LARSON AND THAT DR. LARSON AGREED TO SEE PATIENT NEXT Thursday12/12/19 FOR A CAPSULE ENDOSCOPY.
--- NOTE | 2019-12-07 14:30 | NUR ---
DR. PATRICIA MALLORY HERE TO SEE PATIENT. TOLD ME HE SPOKE TO DR. ARANGO REGARDING RECOMMENDATIONS AND DR. LARSON PLAN FOR CAPSULE ENDOSCOPY AN OUTPATIENT. DR. GOMEZ SAID HE WOULD DISCHARGE PATIENT TODAY AND TO GIVE EVENING DOSE OF MERREM PRIOR TO DISCHARGE
[2019-12-07 16:00] VITALS: BP 134/52; PULSE 79; RESP 20; TEMP 97.7
== END 2019-12-07 18:12 | disposition home or self-care (01) ==
LOC: EDH 14:04 → EDHIP 18:07 → 4DH 21:41
PROVIDERS: ADMIT Internal Medicine Nephrology; ATTEND Internal Medicine Nephrology
DX: K92.2 Gastrointestinal hemorrhage, unspecified (principal); D50.0 Iron deficiency anemia secondary to blood loss (chronic); C92.10 Chronic myeloid leukemia, BCR/ABL-positive, not having achieved remission; I13.2 Hypertensive heart and chronic kidney disease with heart failure and with stage 5 chronic kidney disease, or end stage renal disease; E11.22 Type 2 diabetes mellitus with diabetic chronic kidney disease; I50.9 Heart failure, unspecified; N18.6 End stage renal disease; I25.10 Atherosclerotic heart disease of native coronary artery without angina pectoris; E78.5 Hyperlipidemia, unspecified; E03.9 Hypothyroidism, unspecified; R62.7 Adult failure to thrive; K64.9 Unspecified hemorrhoids; Z95.0 Presence of cardiac pacemaker; Z95.2 Presence of prosthetic heart valve; Z92.21 Personal history of antineoplastic chemotherapy; Z90.49 Acquired absence of other specified parts of digestive tract; Z79.899 Other long term (current) drug therapy; Z88.0 Allergy status to penicillin; Z88.5 Allergy status to narcotic agent
CPT/HCPCS: 36415 ×4; 36430; 80048 ×3; 80053; 82270; 82948 ×5; 84100; 85025 ×3; 85027; 85610; 85730; 86850; 86900; 86901; 86922; 93005; 96374; 96375; 96376 ×2; 99285; C9113 ×4; G0378 ×69; J2185 ×4; J7050; P9016 ×2

== ENCOUNTER 2019-12-23 16:46 | Inpatient (IN) | payer OTHER ==
[~2019-12-23] VITALS: Ht 162.6 cm; Wt 72.5 kg
[~2019-12-23 16:46] MED LIST changes: +CYAN50005 PO; -DASA70TA PO; +MERO1VIA23 IV; +METO25 PO; -METO50 PO
[2019-12-23] MEDS ORDERED: MORPHINE SULFATE 4 MG/1ML SYG ONE ×2 (18:02→19:35)
[2019-12-23] MEDS ORDERED: ONDANSETRON HCL 4 MG/2 ML VIAL ONE (18:02)
[2019-12-23 19:17] LABS: BASOPHILS % (AUTO) 3.5 % (0.0-5.0); EOSINOPHILS % (AUTO) 1.3 % (0.0-8.0); HEMATOCRIT 28.9 % (36-48); LYMPHOCYTES % (AUTO) 5.1 % (21.0-51.0); MEAN CORPUSCULAR HEMOGLOBIN 31.6 pg (27.0-33.0); MEAN CORPUSCULAR HGB CONC 33.2 g/dL (32.0-36.0); MEAN CORPUSCULAR VOLUME 95.1 fL (79-99); MONOCYTES % (AUTO) 1.5 % (3.0-13.0); NEUTROPHILS % (AUTO) 58.6 % (40.0-77.0); NUCLEATED RED BLOOD CELLS 0.1 % (0.0-0.19); RED BLOOD CELL COUNT(AUTO) 3.04 MIL/uL (4.00-5.50); RED CELL DISTRIBUTION WIDTH 15.3 % (11.0-15.5)
[2019-12-23 19:21] LABS: CREATININE 1.8 mg/dL (0.5-1.5); PLATELET COUNT (AUTO) 1159 K/uL (130-400); POTASSIUM 3.1 mmol/L (3.5-5.1); WHITE BLOOD COUNT (AUTO) 143.6 K/uL (4.8-10.8)
[2019-12-23 19:25] LABS: ALBUMIN 3.6 g/dL (3.5-5.0); BILIRUBIN,TOTAL 0.7 mg/dL (0.2-1.0); TOTAL PROTEIN, SERUM 6.2 g/dL (6.0-8.3)
[2019-12-23] MEDS ORDERED: SODIUM CHLORIDE 0.9% 500ML 500 ML IV ONE (19:36)
[2019-12-23 19:44] LABS: APPEARANCE,URINE Cloudy (CLEAR); BILIRUBIN,URINE Negative (NEGATIVE); COLOR,URINE Yellow (YELLOW); GLUCOSE, URINE (UA) Negative (NEGATIVE); KETONES,URINE Negative (NEGATIVE); LEUKOCYTE ESTERASE ,URINE Trace (NEGATIVE); NITRATE,URINE Negative (NEGATIVE); OCCULT BLOOD,URINE Moderate (NEGATIVE); PROTEIN,URINE POS 2+ mg/dL (NEGATIVE); UROBILINOGEN,URINE 0.2 mg/dL (0.2-1.0)
[2019-12-23 19:48] LABS: BAND NEUTROPHILS % (MANUAL) 50 % (0-2); BASOPHILS % (MANUAL) 1 % (0-2); BLASTS, MANUAL % 1 (0-0); LYMPHOCYTES % (MANUAL) 2 % (22-44); MAN.DIFF COMMENT-IMPRESSION MANUAL DIFFERENTIAL; MONOCYTES % (MANUAL) 2 % (2-9); SEGMENTED NEUTROPHILS % 44 % (40-70)
[2019-12-23 20:01] LABS: BACTERIA,URINE Few /HPF (None Seen); RBC,URINE 0-1 /HPF (0-1)
[2019-12-23 20:03] LABS: SQUAMOUS EPITHELIAL CELL,UR Few /HPF (0-2)
[2019-12-23] MEDS ORDERED: HYDROXYUREA 500 MG CAP PO SCH (20:30)
[2019-12-23] MEDS ORDERED: POTASSIUM BICARB/CIT AC 25 MEQ TABLET.EFF ONE ×2 (20:32→21:01)
[2019-12-23] MEDS ORDERED: LACTATED RINGERS 1000ML 1,000 ML IV ONE (21:01)
[2019-12-23] MEDS ORDERED: ONDANSETRON HCL 4 MG/2 ML VIAL IVP PRN (21:30)
[2019-12-23] MEDS: LACTATED RINGERS 1000ML 1,000 ML IV SCH (21:30)
[2019-12-23] MEDS ORDERED: ACETAMINOPHEN 325 MG TAB PO PRN (21:30)
[2019-12-23 22:45] VITALS: BP 133/71
--- NOTE | 2019-12-23 22:50 | NUR ---
Admission Assessment Received pt per stretcher , with LR at 100cc/hr infusing well to a newly access Port A Catheter, routine admission assessment done, plan of care discuss, per pt stated that yesterday saw Dr. Zhnag & was given a pill camera, then today all day having RUQ abdominal pain that get worst early this evening & was instructed by Dr. Zhang to go to the ED. Pt concern that she had expelled the pill camera, assured that per CT of the abdomen/pelvis pill camera is currently in her cecum. Pt claimed pain control at this time as she was given some Morphine in ED, scale 2-3. Pt made aware she is on observation status, possible stay 24-48 hours, depending on all the test outcome. Home medication reviewed with the pt, claimed to be current with her flu & pneumonia vaccinations. Also addressed code status, per pt stated she is always a DNR in the & out of the hospital, does not want intubation nor compression, opted only for blood transfusion & feeding tube.
--- NOTE | 2019-12-23 22:50 | NUR ---
HX: MRSA,E Coli Addendum: 12/24/19 at 0259 by MARIPOSA SANTO RN RN Amended: Links added.
[2019-12-24 04:00] VITALS: BP 106/49
[2019-12-24] MEDS: MORPHINE SULFATE 2 MG/ML 1ML SYG IVP PRN ×2 (05:17→10:13)
[2019-12-24 05:42] LABS: HEMATOCRIT 25.5 % (36-48); MEAN CORPUSCULAR HEMOGLOBIN 30.8 pg (27.0-33.0); MEAN CORPUSCULAR HGB CONC 32.2 g/dL (32.0-36.0); MEAN CORPUSCULAR VOLUME 95.9 fL (79-99); NUCLEATED RED BLOOD CELLS 0.1 % (0.0-0.19); RED BLOOD CELL COUNT(AUTO) 2.66 MIL/uL (4.00-5.50); RED CELL DISTRIBUTION WIDTH 15.5 % (11.0-15.5)
[2019-12-24 05:48] LABS: CREATININE 1.8 mg/dL (0.5-1.5); MAGNESIUM 2.3 mg/dL (1.80-2.40); PHOSPHORUS 5.2 mg/dL (2.5-4.9); POTASSIUM 3.8 mmol/L (3.5-5.1)
[2019-12-24 06:00] LABS: WHITE BLOOD COUNT (AUTO) 135.9 K/uL (4.8-10.8)
[2019-12-24] MEDS: LACTATED RINGERS 1000ML 1,000 ML IV SCH ×3 (06:20→21:08)
[2019-12-24] MEDS: SUCRALFATE 1 GM TABLET PO SCH ×3 (06:45→16:27)
[2019-12-24 08:00] VITALS: BP 117/52
[2019-12-24] MEDS: FAMOTIDINE/PF 20 MG/2 ML VIAL IV SCH (08:53)
[2019-12-24] MEDS: METOPROLOL TARTRATE 25 MG TAB PO SCH ×2 (08:53→21:10)
[2019-12-24] MEDS: LINAGLIPTIN 5 MG TABLET PO SCH (08:53)
[2019-12-24] MEDS: PANTOPRAZOLE SODIUM 40 MG TABLET.DR PO SCH ×2 (08:54→21:10)
[2019-12-24] MEDS: GABAPENTIN 100 MG CAPSULE PO SCH (08:54)
[2019-12-24] MEDS: FOLIC ACID/VITAMIN B COMP W-C 1 CAP TAB PO SCH (08:57)
[2019-12-24] MEDS: CYANOCOBALAMIN (VITAMIN B-12) 1,000 MCG TABLET PO SCH (08:57)
[2019-12-24] MEDS: CHOLECALCIFEROL 2000 UNIT PO SCH (08:58)
[2019-12-24] MEDS: FERROUS SULFATE 325 MG TABLET.DR PO SCH ×2 (08:58→21:10)
[2019-12-24] MEDS: FOLIC ACID 1 MG TABLET PO SCH (08:58)
[2019-12-24] MEDS: TORSEMIDE 20 MG TAB PO SCH ×2 (11:07→21:00)
[2019-12-24 11:09] LABS: AMYLASE 40 U/L (25-115); LIPASE 140 U/L (114-286); TRIGLYCERIDES 118 mg/dL (30-200)
--- NOTE | 2019-12-24 11:37 | NUR ---
[facility] CM spoke to pt's spouse Adam Muniz [phone] discussed dc plans. Pt is semi-independent prior to admission, lives at home with spouse, daughter lives close by. Pt has a nebulizer machine, walker, O2, private caregiver 6hrs/day, [facility]. Denies any other equipments/services. Feels safe to go back home, daughter able to assist with transportation and needs as necessary. DC plan to home once stable. CM to cont to follow up. Addendum: 12/24/19 at 1139 by ALE MONTGOMERY LVN CM Amended: Links added.
[2019-12-24 12:00] VITALS: BP 120/60
[2019-12-24 16:00] VITALS: BP 125/53
[2019-12-24 17:16] LABS: HEMATOCRIT 27.2 % (36-48)
[2019-12-24 19:30] VITALS: BP 119/57
[2019-12-24] MEDS: HYDROXYUREA 500 MG CAP PO SCH (19:53)
[2019-12-24] MEDS: ATORVASTATIN CALCIUM 10 MG TABLET PO SCH (21:10)
[2019-12-24] MEDS: MIRTAZAPINE 15 MG TABLET PO SCH (21:10)
[2019-12-25] VITALS: BP 108/46
[2019-12-25] MEDS: LACTATED RINGERS 1000ML 1,000 ML IV SCH ×2 (01:45→11:50)
[2019-12-25] MEDS: MORPHINE SULFATE 2 MG/ML 1ML SYG IVP PRN ×3 (01:49→21:41)
[2019-12-25 04:00] VITALS: BP 110/48
[2019-12-25] MEDS: SUCRALFATE 1 GM TABLET PO SCH ×3 (06:12→16:20)
[2019-12-25 06:34] LABS: BASOPHILS % (AUTO) 2.7 % (0.0-5.0); EOSINOPHILS % (AUTO) 2.8 % (0.0-8.0); HEMATOCRIT 26.6 % (36-48); MEAN CORPUSCULAR HEMOGLOBIN 31.2 pg (27.0-33.0); MEAN CORPUSCULAR HGB CONC 32.3 g/dL (32.0-36.0); MEAN CORPUSCULAR VOLUME 96.4 fL (79-99); MONOCYTES % (AUTO) 0.9 % (3.0-13.0); NEUTROPHILS % (AUTO) 60.1 % (40.0-77.0); NUCLEATED RED BLOOD CELLS 0.1 % (0.0-0.19); RED BLOOD CELL COUNT(AUTO) 2.76 MIL/uL (4.00-5.50); RED CELL DISTRIBUTION WIDTH 15.8 % (11.0-15.5)
[2019-12-25 06:40] LABS: PLATELET COUNT (AUTO) 961 K/uL (130-400); WHITE BLOOD COUNT (AUTO) 123.9 K/uL (4.8-10.8)
[2019-12-25 06:50] LABS: CREATININE 1.6 mg/dL (0.5-1.5); MAGNESIUM 2.1 mg/dL (1.80-2.40); PHOSPHORUS 5.9 mg/dL (2.5-4.9); POTASSIUM 3.7 mmol/L (3.5-5.1)
[2019-12-25 08:00] VITALS: BP 96/63
[2019-12-25] MEDS: CHOLECALCIFEROL 2000 UNIT PO SCH (09:00)
[2019-12-25] MEDS: FOLIC ACID/VITAMIN B COMP W-C 1 CAP TAB PO SCH (09:20)
[2019-12-25] MEDS: HYDROXYUREA 500 MG CAP PO SCH (09:20)
[2019-12-25] MEDS: LINAGLIPTIN 5 MG TABLET PO SCH (09:20)
[2019-12-25] MEDS: METOPROLOL TARTRATE 25 MG TAB PO SCH ×2 (09:20→21:32)
[2019-12-25] MEDS: TORSEMIDE 20 MG TAB PO SCH ×2 (09:21→21:00)
[2019-12-25] MEDS: GABAPENTIN 100 MG CAPSULE PO SCH (09:21)
[2019-12-25] MEDS: PANTOPRAZOLE SODIUM 40 MG TABLET.DR PO SCH ×2 (09:21→21:32)
[2019-12-25] MEDS: FERROUS SULFATE 325 MG TABLET.DR PO SCH ×2 (09:21→21:32)
[2019-12-25] MEDS: FOLIC ACID 1 MG TABLET PO SCH (09:21)
[2019-12-25] MEDS: FAMOTIDINE/PF 20 MG/2 ML VIAL IV SCH (09:22)
[2019-12-25] MEDS: CYANOCOBALAMIN (VITAMIN B-12) 1,000 MCG TABLET PO SCH (09:31)
[2019-12-25 10:12] LABS: BAND NEUTROPHILS % (MANUAL) 9 % (0-2); BLASTS, MANUAL % 10 (0-0); EOSINOPHILS % (MANUAL) 2 % (1-6); LYMPHOCYTES % (MANUAL) 10 % (22-44); MAN.DIFF COMMENT-IMPRESSION MANUAL DIFFERENTIAL; MONOCYTES % (MANUAL) 4 % (2-9); SEGMENTED NEUTROPHILS % 65 % (40-70)
[2019-12-25 10:13] LABS: PLATELET MORPHOLOGY COMMENT INCREASED
--- NOTE | 2019-12-25 11:25 | NUR ---
DR. NICOLÁS MONZON'S OFFICE WAS CONTACTED AT APPROX 1125 HOURS REGARDING CONSULT. OFFICE ADVISED WOULD BE PAGED. NO REPLY AT THIS TIME.
[2019-12-25 12:00] VITALS: BP 131/60
[2019-12-25 16:00] VITALS: BP 122/57
[2019-12-25 17:59] LABS: HEMATOCRIT 26.9 % (36-48)
[2019-12-25 20:04] VITALS: BP 121/83
[2019-12-25] MEDS: ATORVASTATIN CALCIUM 10 MG TABLET PO SCH (21:32)
[2019-12-25] MEDS: MIRTAZAPINE 15 MG TABLET PO SCH (21:32)
[2019-12-26] VITALS (7 sets, daily range): BP systolic 117–138; BP diastolic 47–67
[2019-12-26] MEDS: LACTATED RINGERS 1000ML 1,000 ML IV SCH ×2 (02:18→19:30)
[2019-12-26] MEDS: MORPHINE SULFATE 2 MG/ML 1ML SYG IVP PRN ×4 (02:22→23:41)
[2019-12-26 05:48] LABS: BASOPHILS % (AUTO) 3.2 % (0.0-5.0); EOSINOPHILS % (AUTO) 3.1 % (0.0-8.0); HEMATOCRIT 28.2 % (36-48); LYMPHOCYTES % (AUTO) 2.6 % (21.0-51.0); MEAN CORPUSCULAR HEMOGLOBIN 31.4 pg (27.0-33.0); MEAN CORPUSCULAR HGB CONC 32.6 g/dL (32.0-36.0); MEAN CORPUSCULAR VOLUME 96.2 fL (79-99); MONOCYTES % (AUTO) 2.7 % (3.0-13.0); NEUTROPHILS % (AUTO) 64.5 % (40.0-77.0); NUCLEATED RED BLOOD CELLS 0.1 % (0.0-0.19); RED BLOOD CELL COUNT(AUTO) 2.93 MIL/uL (4.00-5.50); RED CELL DISTRIBUTION WIDTH 15.3 % (11.0-15.5)
[2019-12-26 05:55] LABS: PLATELET COUNT (AUTO) 925 K/uL (130-400); WHITE BLOOD COUNT (AUTO) 121.1 K/uL (4.8-10.8)
[2019-12-26 06:19] LABS: ALBUMIN 3.2 g/dL (3.5-5.0); BILIRUBIN,TOTAL 0.9 mg/dL (0.2-1.0); CREATININE 1.7 mg/dL (0.5-1.5); MAGNESIUM 2.1 mg/dL (1.80-2.40); POTASSIUM 3.6 mmol/L (3.5-5.1); TOTAL PROTEIN, SERUM 5.7 g/dL (6.0-8.3)
[2019-12-26] MEDS: SUCRALFATE 1 GM TABLET PO SCH ×3 (07:45→17:15)
[2019-12-26] MEDS: CHOLECALCIFEROL 2000 UNIT PO SCH (09:00)
[2019-12-26] MEDS: LINAGLIPTIN 5 MG TABLET PO SCH (09:00)
[2019-12-26] MEDS: FAMOTIDINE/PF 20 MG/2 ML VIAL IV SCH (10:34)
[2019-12-26] MEDS: TORSEMIDE 20 MG TAB PO SCH ×2 (10:34→20:40)
[2019-12-26] MEDS: FERROUS SULFATE 325 MG TABLET.DR PO SCH ×2 (10:34→20:41)
[2019-12-26] MEDS: PANTOPRAZOLE SODIUM 40 MG TABLET.DR PO SCH ×2 (10:34→20:41)
[2019-12-26] MEDS: FOLIC ACID/VITAMIN B COMP W-C 1 CAP TAB PO SCH (10:34)
[2019-12-26] MEDS: CYANOCOBALAMIN (VITAMIN B-12) 1,000 MCG TABLET PO SCH (10:34)
[2019-12-26] MEDS: METOPROLOL TARTRATE 25 MG TAB PO SCH ×2 (10:34→20:41)
[2019-12-26] MEDS: FOLIC ACID 1 MG TABLET PO SCH (10:34)
[2019-12-26] MEDS: HYDROXYUREA 500 MG CAP PO SCH (10:35)
[2019-12-26] MEDS: GABAPENTIN 100 MG CAPSULE PO SCH (10:35)
--- NOTE | 2019-12-26 13:02 | NUR ---
CHART REVIEWED EXPECT THAT PATIENT WILL BE DCD TO HOME WIHT SAME SERVICES AFTER GI DIAGNOSTICS Addendum: 12/26/19 at 1303 by SONU SOLIZ RN CM Amended: Links added.
[2019-12-26] MEDS ORDERED: PEG 3350/NA SULF,BICARB,CL/KCL 4000 ML SOLN PO SCH (17:00)
[2019-12-26] MEDS: PHARMACY COMMUNICATION MISC SCH ×3 (17:15→23:41)
[2019-12-26] MEDS: ALLOPURINOL 100 MG TABLET PO SCH (20:40)
[2019-12-26] MEDS: ATORVASTATIN CALCIUM 10 MG TABLET PO SCH (20:41)
[2019-12-26] MEDS: SODIUM BICARBONATE 650 MG TAB PO SCH (20:42)
[2019-12-26] MEDS: MIRTAZAPINE 15 MG TABLET PO SCH (20:42)
[2019-12-27] VITALS (23 sets, daily range): BP systolic 99–130; BP diastolic 35–66
[2019-12-27] MEDS: MORPHINE SULFATE 2 MG/ML 1ML SYG IVP PRN ×5 (00:41→22:47)
[2019-12-27] MEDS: LACTATED RINGERS 1000ML 1,000 ML IV SCH ×2 (03:26→12:26)
[2019-12-27] MEDS: PHARMACY COMMUNICATION MISC SCH ×6 (03:26→22:23)
[2019-12-27] MEDS: SODIUM BICARBONATE 650 MG TAB PO SCH ×3 (04:53→22:22)
[2019-12-27] MEDS: SUCRALFATE 1 GM TABLET PO SCH ×3 (04:53→16:19)
[2019-12-27 05:38] LABS: BASOPHILS % (AUTO) 2.6 % (0.0-5.0); EOSINOPHILS % (AUTO) 2.6 % (0.0-8.0); HEMATOCRIT 25.7 % (36-48); MEAN CORPUSCULAR HEMOGLOBIN 31.1 pg (27.0-33.0); MEAN CORPUSCULAR HGB CONC 33.1 g/dL (32.0-36.0); MEAN CORPUSCULAR VOLUME 94.1 fL (79-99); MONOCYTES % (AUTO) 2.9 % (3.0-13.0); NEUTROPHILS % (AUTO) 67.2 % (40.0-77.0); NUCLEATED RED BLOOD CELLS 0.1 % (0.0-0.19); RED BLOOD CELL COUNT(AUTO) 2.73 MIL/uL (4.00-5.50); RED CELL DISTRIBUTION WIDTH 15.5 % (11.0-15.5)
[2019-12-27 05:55] LABS: INR 1.17 (0.85-1.15); PARTIAL THROMBOPLASTIN TIME 34.4 SEC (26.3-35.5); PROTHROMBIN TIME 12.6 SEC (9.6-11.6)
[2019-12-27 06:04] LABS: ALBUMIN 3.1 g/dL (3.5-5.0); BILIRUBIN,TOTAL 0.7 mg/dL (0.2-1.0); CREATININE 1.9 mg/dL (0.5-1.5); POTASSIUM 3.3 mmol/L (3.5-5.1); TOTAL PROTEIN, SERUM 5.5 g/dL (6.0-8.3)
[2019-12-27 06:05] LABS: WHITE BLOOD COUNT (AUTO) 104.6 K/uL (4.8-10.8)
[2019-12-27 06:06] LABS: PLATELET COUNT (AUTO) 834 K/uL (130-400)
[2019-12-27 06:07] LABS: B-TYPE NATRIURETIC PEPTIDE 835 pg/mL (0-100)
[2019-12-27 07:22] LABS: BAND NEUTROPHILS % (MANUAL) 1 % (0-2); BASOPHILS % (MANUAL) 2 % (0-2); BLASTS, MANUAL % 2 (0-0); EOSINOPHILS % (MANUAL) 3 % (1-6); LYMPHOCYTES % (MANUAL) 1 % (22-44); MAN.DIFF COMMENT-IMPRESSION MANUAL DIFFERENTIAL; MONOCYTES % (MANUAL) 1 % (2-9); MYELOCYTES % 3 % (0-0); PROMYELOCYTES % 3 (0-0); SEGMENTED NEUTROPHILS % 84 % (40-70)
[2019-12-27 07:25] LABS: PLATELET MORPHOLOGY COMMENT MARKED INCREASE
[2019-12-27] MEDS: CHOLECALCIFEROL 2000 UNIT PO SCH (09:00)
[2019-12-27] MEDS: TORSEMIDE 20 MG TAB PO SCH ×2 (09:00→20:38)
[2019-12-27] MEDS: METOPROLOL TARTRATE 25 MG TAB PO SCH ×2 (09:00→20:38)
[2019-12-27] MEDS ORDERED: POTASSIUM CHLORIDE 20 MEQ ERTAB PO SCH (10:15)
[2019-12-27] MEDS ORDERED: PROPOFOL 10 MG/ML 20ML VIAL IV ONE (10:54)
--- NOTE | 2019-12-27 11:30 | NUR ---
advised anesthesia Bk Hernandez of diasytolic being low in the 30's , no new orders. Okay to send to floor.
[2019-12-27] MEDS: HYDROXYUREA 500 MG CAP PO SCH (12:12)
[2019-12-27] MEDS: PANTOPRAZOLE SODIUM 40 MG TABLET.DR PO SCH ×2 (12:12→20:38)
[2019-12-27] MEDS: FAMOTIDINE/PF 20 MG/2 ML VIAL IV SCH (12:12)
[2019-12-27] MEDS: ALLOPURINOL 100 MG TABLET PO SCH ×2 (12:12→20:38)
[2019-12-27] MEDS: LINAGLIPTIN 5 MG TABLET PO SCH (12:12)
[2019-12-27] MEDS: FOLIC ACID/VITAMIN B COMP W-C 1 CAP TAB PO SCH (12:13)
[2019-12-27] MEDS: CYANOCOBALAMIN (VITAMIN B-12) 1,000 MCG TABLET PO SCH (12:13)
[2019-12-27] MEDS: GABAPENTIN 100 MG CAPSULE PO SCH (12:13)
[2019-12-27] MEDS: FOLIC ACID 1 MG TABLET PO SCH (12:13)
[2019-12-27] MEDS: FERROUS SULFATE 325 MG TABLET.DR PO SCH ×2 (12:14→20:38)
[2019-12-27] MEDS: MIRTAZAPINE 15 MG TABLET PO SCH (20:38)
[2019-12-27] MEDS: ATORVASTATIN CALCIUM 10 MG TABLET PO SCH (20:38)
[2019-12-28] MEDS: MORPHINE SULFATE 2 MG/ML 1ML SYG IVP PRN ×2 (02:04→03:48)
[2019-12-28 03:39] VITALS: BP 113/46
[2019-12-28] MEDS: SODIUM BICARBONATE 650 MG TAB PO SCH ×3 (05:49→23:35)
[2019-12-28] MEDS: SUCRALFATE 1 GM TABLET PO SCH ×3 (05:50→20:44)
[2019-12-28 06:25] LABS: BASOPHILS % (AUTO) 2.7 % (0.0-5.0); LYMPHOCYTES % (AUTO) 3.9 % (21.0-51.0); MEAN CORPUSCULAR HEMOGLOBIN 30.8 pg (27.0-33.0); MEAN CORPUSCULAR HGB CONC 32.8 g/dL (32.0-36.0); MONOCYTES % (AUTO) 2.9 % (3.0-13.0); NEUTROPHILS % (AUTO) 68.5 % (40.0-77.0); NUCLEATED RED BLOOD CELLS 0.1 % (0.0-0.19); RED BLOOD CELL COUNT(AUTO) 2.66 MIL/uL (4.00-5.50); RED CELL DISTRIBUTION WIDTH 15.6 % (11.0-15.5)
[2019-12-28 06:31] LABS: CREATININE 1.7 mg/dL (0.5-1.5); POTASSIUM 3.6 mmol/L (3.5-5.1)
[2019-12-28 06:41] LABS: PLATELET COUNT (AUTO) 776 K/uL (130-400); WHITE BLOOD COUNT (AUTO) 88.3 K/uL (4.8-10.8)
[2019-12-28] MEDS: CHOLECALCIFEROL 2000 UNIT PO SCH (09:00)
[2019-12-28] MEDS: FAMOTIDINE/PF 20 MG/2 ML VIAL IV SCH (09:00)
[2019-12-28] MEDS: CYANOCOBALAMIN (VITAMIN B-12) 1,000 MCG TABLET PO SCH (09:00)
[2019-12-28 09:10] VITALS: BP 139/64
[2019-12-28] MEDS: PHARMACY COMMUNICATION MISC SCH ×4 (09:15→21:15)
[2019-12-28] MEDS: PANTOPRAZOLE SODIUM 40 MG TABLET.DR PO SCH ×2 (09:25→23:35)
[2019-12-28] MEDS: LINAGLIPTIN 5 MG TABLET PO SCH (09:26)
[2019-12-28] MEDS: GABAPENTIN 100 MG CAPSULE PO SCH (09:26)
[2019-12-28] MEDS: FOLIC ACID/VITAMIN B COMP W-C 1 CAP TAB PO SCH (09:26)
[2019-12-28] MEDS: ALLOPURINOL 100 MG TABLET PO SCH ×2 (09:26→23:34)
[2019-12-28] MEDS: TORSEMIDE 20 MG TAB PO SCH ×2 (09:26→23:35)
[2019-12-28] MEDS: METOPROLOL TARTRATE 25 MG TAB PO SCH ×2 (09:26→23:33)
[2019-12-28] MEDS: FOLIC ACID 1 MG TABLET PO SCH (09:26)
[2019-12-28] MEDS: FERROUS SULFATE 325 MG TABLET.DR PO SCH ×2 (09:27→23:35)
[2019-12-28 09:43] LABS: BAND NEUTROPHILS % (MANUAL) 17 % (0-2); BASOPHILS % (MANUAL) 1 % (0-2); BLASTS, MANUAL % 3 (0-0); EOSINOPHILS % (MANUAL) 3 % (1-6); LYMPHOCYTES % (MANUAL) 5 % (22-44); MONOCYTES % (MANUAL) 4 % (2-9); MYELOCYTES % 2 % (0-0); PROMYELOCYTES % 2 (0-0); SEGMENTED NEUTROPHILS % 63 % (40-70)
[2019-12-28 09:44] LABS: MAN.DIFF COMMENT-IMPRESSION MANUAL DIFFERENTIAL
[2019-12-28] MEDS: HYDROXYUREA 500 MG CAP PO SCH (09:44)
[2019-12-28 09:47] LABS: PLATELET MORPHOLOGY COMMENT INCREASED
[2019-12-28 11:52] VITALS: BP 111/42
--- NOTE | 2019-12-28 13:58 | NUR ---
NOTIFIED BENCHMARK BRIM ROUNDER ON PATIENT STATING WORRIED THAT SHE IS PASSING BLOOD IN STOOL. PER OBSERVATION OF BM COLOR IS DARK BROWN NO SIGNS OF BLOOD . INFORMED BRIM ROUNDER ,PATIENT STATING SHE DOESNT WANT TO GO HOME TODAY UNTIL TOMORROW BECAUSE SHE STATED LETS SEE WHAT HAPPENS ,I DON'T WANT TO GO AND COME RIGHT BACK BECAUSE OF THIS PROBLEM ". PER BRIM ROUNDER WILL DISCUSS HER CASE WITH DR CAMPOS .. PER DR ARANGO CLEARED TO GO HOME. PENDING CALL BACK FROM PRIMARY . INFORMED PATIENT ON PLAN .
[2019-12-28] MEDS ORDERED: TRAMADOL HCL 50 MG TABLET PO PRN (15:45)
[2019-12-28 17:03] VITALS: BP 120/57
[2019-12-28 20:00] VITALS: BP 116/49
[2019-12-28] MEDS: MIRTAZAPINE 15 MG TABLET PO SCH (23:35)
[2019-12-28] MEDS: ATORVASTATIN CALCIUM 10 MG TABLET PO SCH (23:35)
[2019-12-29] VITALS: BP 106/49
[2019-12-29 04:00] VITALS: BP 114/50
[2019-12-29 04:55] LABS: MEAN CORPUSCULAR HEMOGLOBIN 30.8 pg (27.0-33.0); MEAN CORPUSCULAR HGB CONC 32.3 g/dL (32.0-36.0); MEAN CORPUSCULAR VOLUME 95.2 fL (79-99); NUCLEATED RED BLOOD CELLS 0.1 % (0.0-0.19); RED BLOOD CELL COUNT(AUTO) 2.73 MIL/uL (4.00-5.50); RED CELL DISTRIBUTION WIDTH 15.6 % (11.0-15.5)
[2019-12-29 05:36] LABS: WHITE BLOOD COUNT (AUTO) 69.2 K/uL (4.8-10.8)
[2019-12-29] MEDS: SODIUM BICARBONATE 650 MG TAB PO SCH ×2 (05:49→15:37)
[2019-12-29] MEDS: SUCRALFATE 1 GM TABLET PO SCH ×3 (06:18→15:37)
[2019-12-29] MEDS: CYANOCOBALAMIN (VITAMIN B-12) 1,000 MCG TABLET PO SCH (09:00)
[2019-12-29] MEDS: CHOLECALCIFEROL 2000 UNIT PO SCH (09:00)
[2019-12-29 09:06] VITALS: BP 105/41
[2019-12-29] MEDS: GABAPENTIN 100 MG CAPSULE PO SCH (09:43)
[2019-12-29] MEDS: FOLIC ACID/VITAMIN B COMP W-C 1 CAP TAB PO SCH (09:44)
[2019-12-29] MEDS: TORSEMIDE 20 MG TAB PO SCH (09:44)
[2019-12-29] MEDS: FOLIC ACID 1 MG TABLET PO SCH (09:44)
[2019-12-29] MEDS: PANTOPRAZOLE SODIUM 40 MG TABLET.DR PO SCH (09:44)
[2019-12-29] MEDS: ALLOPURINOL 100 MG TABLET PO SCH (09:44)
[2019-12-29] MEDS: LINAGLIPTIN 5 MG TABLET PO SCH (09:44)
[2019-12-29] MEDS: METOPROLOL TARTRATE 25 MG TAB PO SCH (09:44)
[2019-12-29] MEDS: FAMOTIDINE/PF 20 MG/2 ML VIAL IV SCH (09:45)
[2019-12-29] MEDS: HYDROXYUREA 500 MG CAP PO SCH (09:45)
[2019-12-29] MEDS: FERROUS SULFATE 325 MG TABLET.DR PO SCH (09:45)
--- NOTE | 2019-12-29 16:30 | NUR ---
D/C PAPERWORK COMPLETE, F/U APPOINTMENT MADE AT DR ARANGO'S OFFICE, RIGHT CHEST PORT A CATH DEACCESSED AFTER FLUSHING IT; PT STATED UNDERSTANDING OF ALL D/C INSTRUCTIONS INCLUDING THAT IRON SUPPLEMENTS WILL CAUSE BLACK STOOLS, TRAMADOL SCRIPT FOR PAIN, AND F/U WITH DR ARANGO; PT'S DAUGHTER IS WAITING DOWNSTAIRS TO PICK PT UP;
== END 2019-12-29 17:00 | disposition home or self-care (01) | DRG 393 ==
LOC: EDH 16:46 → OBSVTOIN 20:58 → EDHIP 20:58 → 3CH 22:50
PROVIDERS: ADMIT Internal Medicine; ATTEND Internal Medicine
PROC: 0DCH8ZZ Extirpation of Matter from Cecum, Via Natural or Artificial Opening Endoscopic (ICD-10-PCS; principal; 2019-12-27)
DX: T18.4XXA Foreign body in colon, initial encounter (principal); I50.33 Acute on chronic diastolic (congestive) heart failure; K92.2 Gastrointestinal hemorrhage, unspecified; N18.4 Chronic kidney disease, stage 4 (severe); I13.0 Hypertensive heart and chronic kidney disease with heart failure and stage 1 through stage 4 chronic kidney disease, or unspecified chronic kidney disease; C92.10 Chronic myeloid leukemia, BCR/ABL-positive, not having achieved remission; N17.9 Acute kidney failure, unspecified; I50.9 Heart failure, unspecified; E11.22 Type 2 diabetes mellitus with diabetic chronic kidney disease; N18.9 Chronic kidney disease, unspecified; D64.9 Anemia, unspecified; D69.6 Thrombocytopenia, unspecified; I25.10 Atherosclerotic heart disease of native coronary artery without angina pectoris; R62.7 Adult failure to thrive; Z66 Do not resuscitate; X58.XXXA Exposure to other specified factors, initial encounter; R93.3 Abnormal findings on diagnostic imaging of other parts of digestive tract; Z79.899 Other long term (current) drug therapy; Z88.0 Allergy status to penicillin; Z95.2 Presence of prosthetic heart valve; Z90.49 Acquired absence of other specified parts of digestive tract; Z68.27 Body mass index [BMI] 27.0-27.9, adult; Y93.89 Activity, other specified; Y92.89 Other specified places as the place of occurrence of the external cause; Y99.8 Other external cause status; E66.01 Morbid (severe) obesity due to excess calories
CPT/HCPCS: 36415; 45378; 71045; 74018; 74176; 80048; 80053; 81001; 82150; 82550; 82948; 83605; 83690; 83735; 83880; 84100; 84478; 84484; 85014; 85018; 85025; 85027; 85610; 85730; 87040; 93005; A4606; G0378; J2270; J2405; J2704; J3490; J7030; J7040; J7120

== ENCOUNTER 2020-01-01 04:14 | Inpatient (IN) | payer OTHER ==
[~2020-01-01] VITALS: Ht 157.5 cm; Wt 71.7 kg
[2020-01-01] MEDS ORDERED: SODIUM CHLORIDE 0.9% 100 ML IV ONE (05:33)
[2020-01-01] MEDS ORDERED: PANTOPRAZOLE SODIUM 80 MG in NS 100ML IVP SCH (06:45)
[2020-01-01] MEDS ORDERED: ONDANSETRON HCL 4 MG/2 ML VIAL IVP PRN (06:45)
--- NOTE | 2020-01-01 08:23 | NUR ---
REPORT GIVEN TO BEBETO ARREOLA, PATIENT BEING TRANSFERRED TO ROOM 302. PATIENT PENDING 1 UNIT PRBC, AND GI CONSULT. PATIENTS DAUGHTER REJI MADE AWARE OF TRANSFER. PATIENT AT THIS TIME AAOX3, CURRENTLY ON O2 3LPM VIA NC, SATURATING 97%.
[2020-01-01 08:56] VITALS: BP 110/75; PULSE 97; RESP 19; TEMP 98.1
[2020-01-01] MEDS: FOLIC ACID/VITAMIN B COMP W-C 1 CAP TAB PO SCH (09:00)
[2020-01-01] MEDS: CYANOCOBALAMIN (VITAMIN B-12) 1,000 MCG TABLET PO SCH (09:00)
[2020-01-01] MEDS: AMINOCAPROIC ACID 500 MG TABLET PO SCH ×2 (09:00→21:11)
[2020-01-01] MEDS: **HM** VIT D3 2000 UNITS PO SCH (09:00)
[2020-01-01] MEDS: FERROUS SULFATE 325 MG TABLET.DR PO SCH ×2 (09:00→21:12)
[2020-01-01] MEDS: FOLIC ACID 1 MG TABLET PO SCH (09:00)
[2020-01-01] MEDS: METOPROLOL TARTRATE 25 MG TAB PO SCH ×2 (09:00→21:12)
[2020-01-01] MEDS: GABAPENTIN 100 MG CAPSULE PO SCH (09:00)
[2020-01-01] MEDS: TORSEMIDE 20 MG TAB PO SCH ×2 (09:00→21:14)
[2020-01-01] MEDS ORDERED: DiphenhydrAMINE HCL 50 MG/ML VIAL IV SCH (10:45)
[2020-01-01] MEDS ORDERED: FUROSEMIDE 10 MG/ML 2ML VIAL IV SCH (10:45)
[2020-01-01 11:44] VITALS: BP 113/39; PULSE 95; RESP 18; TEMP 98.3
[2020-01-01] MEDS ORDERED: AMINOCAPROIC ACID 250 MG/ML 20 ML VIAL IV SCH (12:00)
--- NOTE | 2020-01-01 13:59 | NUR ---
INITIAL SW spoke with patient's daughter, Brandi Tse, [phone]. Patient lives with spouse, Adam Hernandez. She has no home services but family pay for private provider at home. DME: wheelchair, walker with seat, glucometer (no insulin), O2 concentrator/portable. O2 is thru [facility]. Patient needs help with ADL's and doesn't drive. PCP is Dr. Aditya Dejesus. Pharmacy is [facility]. DCP is home. Addendum: 01/01/20 at 1411 by FRANKLIN CORONADO SS Amended: Links added.
[2020-01-01] MEDS: SUCRALFATE 1 GM TABLET PO SCH ×2 (14:07→16:25)
[2020-01-01 16:00] VITALS: BP 121/40; PULSE 88; RESP 16; TEMP 97.8
[2020-01-01] MEDS ORDERED: FUROSEMIDE 20 MG TABLET PO SCH (17:00)
[2020-01-01 19:58] VITALS: BP 120/62; PULSE 89; RESP 20; TEMP 97.8
[2020-01-01] MEDS: PANTOPRAZOLE SODIUM 40 MG TABLET.DR PO SCH (21:11)
[2020-01-01] MEDS: ATORVASTATIN CALCIUM 10 MG TABLET PO SCH (21:11)
[2020-01-01] MEDS: MIRTAZAPINE 15 MG TABLET PO SCH (21:16)
[2020-01-01 23:49] VITALS: BP 115/57; PULSE 73; RESP 16; TEMP 98
[2020-01-02 03:47] VITALS: BP 117/53; PULSE 79; RESP 19; TEMP 97.5
[2020-01-02] MEDS: SUCRALFATE 1 GM TABLET PO SCH ×3 (05:59→16:57)
[2020-01-02 08:00] VITALS: BP 132/64; PULSE 86; RESP 19; TEMP 98.3
[2020-01-02 08:55] VITALS: BP 154/84; PULSE 78; RESP 20; TEMP 98.6
[2020-01-02] MEDS: CYANOCOBALAMIN (VITAMIN B-12) 1,000 MCG TABLET PO SCH (09:00)
[2020-01-02] MEDS: **HM** VIT D3 2000 UNITS PO SCH (09:00)
[2020-01-02] MEDS: FERROUS SULFATE 325 MG TABLET.DR PO SCH ×2 (10:31→19:56)
[2020-01-02] MEDS: TORSEMIDE 20 MG TAB PO SCH ×2 (10:31→19:58)
[2020-01-02] MEDS: METOPROLOL TARTRATE 25 MG TAB PO SCH ×2 (10:31→19:57)
[2020-01-02] MEDS: FOLIC ACID/VITAMIN B COMP W-C 1 CAP TAB PO SCH (10:31)
[2020-01-02] MEDS: AMINOCAPROIC ACID 500 MG TABLET PO SCH ×3 (10:31→19:58)
[2020-01-02] MEDS: PANTOPRAZOLE SODIUM 40 MG TABLET.DR PO SCH ×2 (10:31→19:57)
[2020-01-02] MEDS: GABAPENTIN 100 MG CAPSULE PO SCH (10:32)
[2020-01-02] MEDS: FOLIC ACID 1 MG TABLET PO SCH (10:32)
[2020-01-02 12:00] VITALS: BP 121/57; PULSE 80; RESP 20; TEMP 98
[2020-01-02] MEDS ORDERED: POTASSIUM CHLORIDE 20MEQ/100ML 100 ML IV PRN (13:00)
[2020-01-02] MEDS ORDERED: POTASSIUM CHLORIDE 10% ELIXIR 20 MEQ/15 ML UDCUP PO PRN (13:00)
[2020-01-02] MEDS ORDERED: LIDOCAINE HCL-MPF 1% 2ML VIAL IV PRN (13:00)
[2020-01-02] MEDS: POTASSIUM CHLORIDE 20 MEQ ERTAB PO PRN ×3 (14:01→19:57)
[2020-01-02 16:00] VITALS: BP 119/57; PULSE 80; RESP 18; TEMP 98.1
[2020-01-02] MEDS: MIRTAZAPINE 15 MG TABLET PO SCH (19:57)
[2020-01-02] MEDS: ATORVASTATIN CALCIUM 10 MG TABLET PO SCH (19:57)
[2020-01-02 20:09] VITALS: BP 112/37; PULSE 87; RESP 18; TEMP 98.1
[2020-01-03] VITALS (7 sets, daily range): BP systolic 103–137; BP diastolic 31–93; PULSE 79–85; RESP 16–20; TEMP 96.4–98.2
[2020-01-03] MEDS: SUCRALFATE 1 GM TABLET PO SCH ×3 (05:23→16:21)
[2020-01-03] MEDS: GABAPENTIN 100 MG CAPSULE PO SCH (08:26)
[2020-01-03] MEDS: FOLIC ACID 1 MG TABLET PO SCH (08:26)
[2020-01-03] MEDS: FERROUS SULFATE 325 MG TABLET.DR PO SCH ×2 (08:26→19:56)
[2020-01-03] MEDS: METOPROLOL TARTRATE 25 MG TAB PO SCH ×2 (08:26→19:56)
[2020-01-03] MEDS: CYANOCOBALAMIN (VITAMIN B-12) 1,000 MCG TABLET PO SCH (08:27)
[2020-01-03] MEDS: PANTOPRAZOLE SODIUM 40 MG TABLET.DR PO SCH ×2 (08:27→19:56)
[2020-01-03] MEDS: FOLIC ACID/VITAMIN B COMP W-C 1 CAP TAB PO SCH (08:27)
[2020-01-03] MEDS: **HM** VIT D3 2000 UNITS PO SCH (08:28)
[2020-01-03] MEDS: AMINOCAPROIC ACID 500 MG TABLET PO SCH ×3 (10:21→19:55)
[2020-01-03] MEDS: TORSEMIDE 20 MG TAB PO SCH ×2 (10:21→19:55)
[2020-01-03] MEDS: ATORVASTATIN CALCIUM 10 MG TABLET PO SCH (19:56)
[2020-01-03] MEDS: MIRTAZAPINE 15 MG TABLET PO SCH (19:56)
[2020-01-03] MEDS: ACETAMINOPHEN 325 MG TAB PO PRN (22:50)
[2020-01-04] VITALS (7 sets, daily range): BP systolic 91–130; BP diastolic 30–74; PULSE 75–91; RESP 16–20; TEMP 96.8–98.8
[2020-01-04] MEDS: SUCRALFATE 1 GM TABLET PO SCH ×3 (05:52→16:28)
[2020-01-04] MEDS: **HM** VIT D3 2000 UNITS PO SCH (09:00)
[2020-01-04] MEDS: CYANOCOBALAMIN (VITAMIN B-12) 1,000 MCG TABLET PO SCH (09:00)
[2020-01-04] MEDS: AMINOCAPROIC ACID 500 MG TABLET PO SCH ×3 (10:00→20:00)
[2020-01-04] MEDS: TORSEMIDE 20 MG TAB PO SCH ×2 (10:01→19:59)
[2020-01-04] MEDS: FOLIC ACID 1 MG TABLET PO SCH (10:07)
[2020-01-04] MEDS: FERROUS SULFATE 325 MG TABLET.DR PO SCH ×2 (10:07→20:00)
[2020-01-04] MEDS: FOLIC ACID/VITAMIN B COMP W-C 1 CAP TAB PO SCH (10:07)
[2020-01-04] MEDS: METOPROLOL TARTRATE 25 MG TAB PO SCH ×2 (10:08→20:00)
[2020-01-04] MEDS: GABAPENTIN 100 MG CAPSULE PO SCH (10:08)
[2020-01-04] MEDS: PANTOPRAZOLE SODIUM 40 MG TABLET.DR PO SCH ×2 (10:08→20:00)
[2020-01-04] MEDS: POTASSIUM CHLORIDE 20 MEQ ERTAB PO PRN (11:16)
[2020-01-04] MEDS: ATORVASTATIN CALCIUM 10 MG TABLET PO SCH (20:00)
[2020-01-04] MEDS: MIRTAZAPINE 15 MG TABLET PO SCH (20:00)
[2020-01-04] MEDS: ACETAMINOPHEN 325 MG TAB PO PRN (20:13)
[2020-01-04] MEDS: CEFTRIAXONE SODIUM 1 GM IVP SCH (21:25)
[2020-01-05] MEDS: ACETAMINOPHEN 325 MG TAB PO PRN (00:01)
[2020-01-05 00:56] VITALS: BP 125/41; PULSE 90
[2020-01-05 03:31] VITALS: BP 116/37; PULSE 98; RESP 16; TEMP 96.8
[2020-01-05] MEDS: SUCRALFATE 1 GM TABLET PO SCH ×3 (05:29→17:11)
[2020-01-05 08:00] VITALS: BP 127/37; PULSE 87; RESP 18; TEMP 97.7
[2020-01-05] MEDS: FOLIC ACID/VITAMIN B COMP W-C 1 CAP TAB PO SCH (08:56)
[2020-01-05] MEDS: FOLIC ACID 1 MG TABLET PO SCH (08:56)
[2020-01-05] MEDS: PANTOPRAZOLE SODIUM 40 MG TABLET.DR PO SCH ×2 (08:56→22:37)
[2020-01-05] MEDS: GABAPENTIN 100 MG CAPSULE PO SCH (08:56)
[2020-01-05] MEDS: FERROUS SULFATE 325 MG TABLET.DR PO SCH ×2 (08:57→22:37)
[2020-01-05] MEDS: **HM** VIT D3 2000 UNITS PO SCH (08:57)
[2020-01-05] MEDS: METOPROLOL TARTRATE 25 MG TAB PO SCH ×2 (08:57→22:37)
[2020-01-05] MEDS: AMINOCAPROIC ACID 500 MG TABLET PO SCH ×3 (08:57→22:36)
[2020-01-05] MEDS: CYANOCOBALAMIN (VITAMIN B-12) 1,000 MCG TABLET PO SCH (08:57)
[2020-01-05] MEDS: TORSEMIDE 20 MG TAB PO SCH ×2 (08:57→22:36)
[2020-01-05 11:00] VITALS: BP 117/36; PULSE 83; RESP 16; TEMP 97.9
[2020-01-05 16:00] VITALS: BP 122/39; PULSE 85; RESP 18; TEMP 98
[2020-01-05 20:00] VITALS: BP 119/36; PULSE 88; RESP 16; TEMP 98.2
[2020-01-05] MEDS: ATORVASTATIN CALCIUM 10 MG TABLET PO SCH (22:36)
[2020-01-05] MEDS: MIRTAZAPINE 15 MG TABLET PO SCH (22:36)
[2020-01-05] MEDS: CEFTRIAXONE SODIUM 1 GM IVP SCH (22:36)
[2020-01-06 00:03] VITALS: BP 104/34; PULSE 72; RESP 16; TEMP 98.1
[2020-01-06 04:00] VITALS: BP 115/33; PULSE 71; RESP 16; TEMP 98.8
[2020-01-06] MEDS: SUCRALFATE 1 GM TABLET PO SCH ×2 (07:30→11:18)
[2020-01-06 08:00] VITALS: BP 116/40; PULSE 82; TEMP 97.5
[2020-01-06] MEDS: **HM** VIT D3 2000 UNITS PO SCH (09:00)
[2020-01-06] MEDS: CYANOCOBALAMIN (VITAMIN B-12) 1,000 MCG TABLET PO SCH (09:00)
[2020-01-06] MEDS: AMINOCAPROIC ACID 500 MG TABLET PO SCH ×2 (09:42→14:08)
[2020-01-06] MEDS: GABAPENTIN 100 MG CAPSULE PO SCH (09:43)
[2020-01-06] MEDS: FOLIC ACID/VITAMIN B COMP W-C 1 CAP TAB PO SCH (09:43)
[2020-01-06] MEDS: FERROUS SULFATE 325 MG TABLET.DR PO SCH (09:43)
[2020-01-06] MEDS: FOLIC ACID 1 MG TABLET PO SCH (09:43)
[2020-01-06] MEDS: METOPROLOL TARTRATE 25 MG TAB PO SCH (09:43)
[2020-01-06] MEDS: PANTOPRAZOLE SODIUM 40 MG TABLET.DR PO SCH (09:43)
[2020-01-06] MEDS: TORSEMIDE 20 MG TAB PO SCH (09:44)
[2020-01-06 11:58] VITALS: BP 108/35; PULSE 72; RESP 20; TEMP 97.7
[2020-01-06] MEDS ORDERED: HEPARIN SODIUM/PF 100UNIT/ML 5ML SYRINGE IV SCH (17:45)
--- NOTE | 2020-01-06 18:30 | NUR ---
DISCHARGE PATIENT GIVEN DISCHARGE INSTRUCTIONS VIA TEACH BACK. PORT-A-CATH DE-ACCESSED BY MAXWELL SMALLWOOD. TELE REMOVED. PATIENT TO PICK ANTIBIOTIC BACTRIM DS 1 TAB PO BID X 5 DAYS FOR UTI FROM [facility] IN [place]. PATIENT TO FOLLOW UP WITH DR. ARANGO ON THURSDAY. PATIENT STABLE AT THIS TIME. PATIENT TAKEN TO ER LOBBY VIA WHEELCHAIR BY STACEY NIEVES FOR DISCHARGE. SPOUSE WAITING IN DESIGNATED AREA.
== END 2020-01-06 18:05 | disposition home or self-care (01) | DRG 378 ==
LOC: EDH 04:14 → EDHIP 05:45 → 3AH 06:48
PROVIDERS: ADMIT Internal Medicine Critical Care Medicine; ATTEND Internal Medicine Critical Care Medicine
PROC: 30233N1 Transfusion of Nonautologous Red Blood Cells into Peripheral Vein, Percutaneous Approach (ICD-10-PCS; principal; 2020-01-01)
DX: K92.2 Gastrointestinal hemorrhage, unspecified (principal); N18.4 Chronic kidney disease, stage 4 (severe); N17.9 Acute kidney failure, unspecified; C91.10 Chronic lymphocytic leukemia of B-cell type not having achieved remission; I50.30 Unspecified diastolic (congestive) heart failure; E03.9 Hypothyroidism, unspecified; E11.22 Type 2 diabetes mellitus with diabetic chronic kidney disease; I25.10 Atherosclerotic heart disease of native coronary artery without angina pectoris; D50.0 Iron deficiency anemia secondary to blood loss (chronic); R62.7 Adult failure to thrive; T45.1X5A Adverse effect of antineoplastic and immunosuppressive drugs, initial encounter; Z66 Do not resuscitate; Z79.899 Other long term (current) drug therapy; Z88.0 Allergy status to penicillin; Z79.84 Long term (current) use of oral hypoglycemic drugs; Z88.5 Allergy status to narcotic agent; Y92.89 Other specified places as the place of occurrence of the external cause; Z68.28 Body mass index [BMI] 28.0-28.9, adult

== ENCOUNTER 2020-02-07 13:01 | Inpatient (IN) | payer OTHER ==
[~2020-02-07] VITALS: Ht 162.6 cm; Wt 71.0 kg
[2020-02-07] MEDS: LINAGLIPTIN 5 MG TABLET PO SCH (09:00)
[~2020-02-07 13:01] MED LIST changes: -MERO1VIA23 IV
[2020-02-07 13:39] LABS: BASOPHILS % (AUTO) 2.2 % (0.0-5.0); EOSINOPHILS % (AUTO) 1.4 % (0.0-8.0); HEMATOCRIT 22.5 % (36-48); LYMPHOCYTES % (AUTO) 4.7 % (21.0-51.0); MEAN CORPUSCULAR HEMOGLOBIN 29.8 pg (27.0-33.0); MONOCYTES % (AUTO) 1.5 % (3.0-13.0); NUCLEATED RED BLOOD CELLS 0.3 % (0.0-0.19); RED BLOOD CELL COUNT(AUTO) 2.42 MIL/uL (4.00-5.50); RED CELL DISTRIBUTION WIDTH 19.5 % (11.0-15.5)
[2020-02-07 13:43] LABS: CREATININE 1.8 mg/dL (0.5-1.5); PLATELET COUNT (AUTO) 912 K/uL (130-400); POTASSIUM 3.5 mmol/L (3.5-5.1); WHITE BLOOD COUNT (AUTO) 125.7 K/uL (4.8-10.8)
[2020-02-07 13:48] LABS: ALBUMIN 3.3 g/dL (3.5-5.0); BILIRUBIN,TOTAL 0.5 mg/dL (0.2-1.0); TOTAL PROTEIN, SERUM 5.8 g/dL (6.0-8.3)
[2020-02-07 14:00] LABS: INR 1.14 (0.85-1.15); PARTIAL THROMBOPLASTIN TIME 31.5 SEC (26.3-35.5); PROTHROMBIN TIME 12.2 SEC (9.6-11.6)
[2020-02-07 14:12] LABS: BAND NEUTROPHILS % (MANUAL) 8 % (0-2); EOSINOPHILS % (MANUAL) 6 % (1-6); LYMPHOCYTES % (MANUAL) 1 % (22-44); MAN.DIFF COMMENT-IMPRESSION MANUAL DIFFERENTIAL; METAMYELOCYTES % 6 % (0-0); MONOCYTES % (MANUAL) 1 % (2-9); MYELOCYTES % 6 % (0-0); PROMYELOCYTES % 26 (0-0); SEGMENTED NEUTROPHILS % 46 % (40-70)
[2020-02-07 14:13] LABS: PLATELET MORPHOLOGY COMMENT INCREASED
[2020-02-07 14:50] LABS: APPEARANCE,URINE Clear (CLEAR); BILIRUBIN,URINE Negative (NEGATIVE); COLOR,URINE Yellow (YELLOW); GLUCOSE, URINE (UA) Negative (NEGATIVE); KETONES,URINE Negative (NEGATIVE); LEUKOCYTE ESTERASE ,URINE Trace (NEGATIVE); NITRATE,URINE Negative (NEGATIVE); OCCULT BLOOD,URINE Trace (NEGATIVE); PH,URINE 5.5 (5.0-8.0); PROTEIN,URINE POS 1+ mg/dL (NEGATIVE)
[2020-02-07 14:57] LABS: BACTERIA,URINE Few /HPF (None Seen); MUCUS,URINE Few LPF (None Seen); SQUAMOUS EPITHELIAL CELL,UR Few /HPF (0-2)
[2020-02-07] MEDS ORDERED: DEXAMETHASONE 10MG/ML 1ML VIAL 10 MG in SODIUM CHLORIDE 0.9% 50 ML IV SCH (15:15)
[2020-02-07] MEDS: SODIUM CHLORIDE 0.9% 1000ML 1,000 ML IV SCH (15:15)
[2020-02-07] MEDS ORDERED: DEXAMETHASONE SOD PHOSPHATE 10MG/ML 1ML VIAL ONE ×2 (15:50→16:06)
[2020-02-07] MEDS ORDERED: SODIUM CHLORIDE 0.9% 50 ML IV ONE (16:01)
[2020-02-07 17:15] VITALS: BP 112/60
[2020-02-07] MEDS ORDERED: ONDANSETRON HCL 4 MG/2 ML VIAL IVP PRN (19:30)
[2020-02-07 19:46] VITALS: BP 126/45
[2020-02-07] MEDS ORDERED: TRAM50TA4 PO (21:43)
[2020-02-07] MEDS ORDERED: NILO150C PO (21:43)
[2020-02-07 23:26] VITALS: BP 119/52
[2020-02-08 03:58] VITALS: BP 113/50
[2020-02-08] MEDS: SODIUM CHLORIDE 0.9% 1000ML 1,000 ML IV SCH ×2 (04:31→16:46)
[2020-02-08 04:52] LABS: BASOPHILS % (AUTO) 2.6 % (0.0-5.0); EOSINOPHILS % (AUTO) 0.5 % (0.0-8.0); HEMATOCRIT 25.9 % (36-48); LYMPHOCYTES % (AUTO) 2.4 % (21.0-51.0); MEAN CORPUSCULAR HEMOGLOBIN 30.3 pg (27.0-33.0); MEAN CORPUSCULAR HGB CONC 33.2 g/dL (32.0-36.0); MEAN CORPUSCULAR VOLUME 91.2 fL (79-99); MONOCYTES % (AUTO) 3.5 % (3.0-13.0); NEUTROPHILS % (AUTO) 61.2 % (40.0-77.0); NUCLEATED RED BLOOD CELLS 0.2 % (0.0-0.19); RED BLOOD CELL COUNT(AUTO) 2.84 MIL/uL (4.00-5.50); RED CELL DISTRIBUTION WIDTH 18.7 % (11.0-15.5)
[2020-02-08 04:55] LABS: PLATELET COUNT (AUTO) 883 K/uL (130-400); WHITE BLOOD COUNT (AUTO) 165.4 K/uL (4.8-10.8)
[2020-02-08 05:05] LABS: CREATININE 1.6 mg/dL (0.5-1.5); MAGNESIUM 2.2 mg/dL (1.80-2.40); PHOSPHORUS 4.8 mg/dL (2.5-4.9); POTASSIUM 3.9 mmol/L (3.5-5.1)
[2020-02-08] MEDS: SUCRALFATE 1 GM TABLET PO SCH ×3 (06:51→16:46)
[2020-02-08 08:25] VITALS: BP 122/53
[2020-02-08] MEDS: CHOLECALCIFEROL PO SCH (09:00)
[2020-02-08] MEDS: NILOTINIB HCL 150 MG PO SCH ×2 (09:00→21:00)
[2020-02-08] MEDS: AMINOCAPROIC ACID 1000 MG PO SCH ×3 (09:00→21:00)
[2020-02-08] MEDS: CYANOCOBALAMIN (VITAMIN B-12) 1,000 MCG TABLET PO SCH (09:00)
[2020-02-08] MEDS: FERROUS SULFATE 325 MG TABLET.DR PO SCH (09:27)
[2020-02-08] MEDS: FOLIC ACID 1 MG TABLET PO SCH (09:27)
[2020-02-08] MEDS: TORSEMIDE 20 MG TAB PO SCH (09:27)
[2020-02-08] MEDS: METOPROLOL TARTRATE 25 MG TAB PO SCH ×2 (09:32→21:00)
[2020-02-08] MEDS: PANTOPRAZOLE SODIUM 40 MG TABLET.DR PO SCH (09:32)
[2020-02-08] MEDS: GABAPENTIN 100 MG CAPSULE PO SCH (09:32)
[2020-02-08] MEDS: LINAGLIPTIN 5 MG TABLET PO SCH (09:32)
[2020-02-08] MEDS: FOLIC ACID/VITAMIN B COMP W-C 1 CAP TAB PO SCH (09:32)
[2020-02-08 11:28] VITALS: BP 129/59
--- NOTE | 2020-02-08 15:02 | NUR ---
DCP CM unable to meet w/pt, called daughter on facesheet, spoke to Brandi Tse , discussed dc plans. Pt is assist with ADL's prior to admission, lives at home with spouse, daughter lives close by. Pt has O2 w/AHP, walker, shower chair, nebulizer, uses [facility] for meds. Feels safe to go back home, daughter and spouse able to assist with transportation and needs as necessary. DC plan to home once stable. CM to cont to follow up. Addendum: 02/08/20 at 1504 by ALE MONTGOMERY LVN CM Amended: Links added.
--- NOTE | 2020-02-08 15:06 | NUR ---
DCP:cont As per daughter pt also have private caregiver 40hrs/wk at home.
[2020-02-08] MEDS: HYDROXYUREA 500 MG CAP PO SCH (15:25)
[2020-02-08 16:56] VITALS: BP 111/47
[2020-02-08 20:00] VITALS: BP 100/39
[2020-02-08] MEDS: ROSUVASTATIN CALCIUM 5 MG PO SCH (21:00)
[2020-02-09] VITALS: BP 107/36
[2020-02-09] MEDS: TORSEMIDE 20 MG TAB PO SCH ×3 (00:27→22:01)
[2020-02-09] MEDS: FERROUS SULFATE 325 MG TABLET.DR PO SCH ×3 (00:27→22:01)
[2020-02-09] MEDS: PANTOPRAZOLE SODIUM 40 MG TABLET.DR PO SCH ×3 (00:28→22:01)
[2020-02-09] MEDS: MIRTAZAPINE 15 MG TABLET PO SCH ×2 (00:29→22:01)
[2020-02-09] MEDS: ALLOPURINOL 100 MG TABLET PO SCH ×3 (00:29→22:01)
[2020-02-09 04:00] VITALS: BP 134/44
[2020-02-09 04:58] LABS: BASOPHILS % (AUTO) 1.9 % (0.0-5.0); EOSINOPHILS % (AUTO) 1.9 % (0.0-8.0); HEMATOCRIT 22.6 % (36-48); MEAN CORPUSCULAR HEMOGLOBIN 29.8 pg (27.0-33.0); MEAN CORPUSCULAR HGB CONC 32.3 g/dL (32.0-36.0); MEAN CORPUSCULAR VOLUME 92.2 fL (79-99); MONOCYTES % (AUTO) 0.9 % (3.0-13.0); NEUTROPHILS % (AUTO) 62.9 % (40.0-77.0); NUCLEATED RED BLOOD CELLS 0.3 % (0.0-0.19); RED BLOOD CELL COUNT(AUTO) 2.45 MIL/uL (4.00-5.50); RED CELL DISTRIBUTION WIDTH 18.8 % (11.0-15.5)
[2020-02-09 05:00] LABS: PLATELET COUNT (AUTO) 846 K/uL (130-400); WHITE BLOOD COUNT (AUTO) 118.7 K/uL (4.8-10.8)
[2020-02-09 05:04] LABS: ALBUMIN 3.2 g/dL (3.5-5.0); BILIRUBIN,TOTAL 0.5 mg/dL (0.2-1.0); CREATININE 2.1 mg/dL (0.5-1.5); POTASSIUM 3.4 mmol/L (3.5-5.1); TOTAL PROTEIN, SERUM 5.6 g/dL (6.0-8.3); URIC ACID 13.1 mg/dL (2.6-7.2)
--- NOTE | 2020-02-09 05:11 | NUR ---
CRITICAL LAB RESULTS WBC 118.7 PLT 846 SLIGHT IMPROVEMENT FROM YESTERDAY WBC 165.4, PLT 883
[2020-02-09] MEDS: SODIUM CHLORIDE 0.9% 1000ML 1,000 ML IV SCH ×2 (05:31→20:35)
[2020-02-09] MEDS: SUCRALFATE 1 GM TABLET PO SCH ×3 (05:35→16:48)
[2020-02-09] MEDS: TRAMADOL HCL 50 MG TABLET PO PRN ×2 (06:51→22:01)
[2020-02-09 08:08] VITALS: BP 111/40
[2020-02-09] MEDS: AMINOCAPROIC ACID 1000 MG PO SCH ×3 (09:00→21:00)
[2020-02-09] MEDS: CYANOCOBALAMIN (VITAMIN B-12) 1,000 MCG TABLET PO SCH (09:00)
[2020-02-09] MEDS: METOPROLOL TARTRATE 25 MG TAB PO SCH ×2 (09:00→21:00)
[2020-02-09] MEDS: NILOTINIB HCL 150 MG PO SCH ×2 (09:00→21:00)
[2020-02-09] MEDS: CHOLECALCIFEROL PO SCH (09:00)
[2020-02-09] MEDS: FOLIC ACID/VITAMIN B COMP W-C 1 CAP TAB PO SCH (09:42)
[2020-02-09] MEDS: FOLIC ACID 1 MG TABLET PO SCH (09:42)
[2020-02-09] MEDS: GABAPENTIN 100 MG CAPSULE PO SCH (09:43)
[2020-02-09] MEDS: LINAGLIPTIN 5 MG TABLET PO SCH (09:43)
[2020-02-09 11:55] VITALS: BP 113/36
[2020-02-09] MEDS: CEFTRIAXONE SODIUM 1 GM IVP SCH (13:50)
[2020-02-09] MEDS: HYDROXYUREA 500 MG CAP PO SCH (13:51)
[2020-02-09 16:55] VITALS: BP 118/42
[2020-02-09] MEDS: AMINOCAPROIC ACID 500 MG TABLET PO SCH ×2 (17:49→23:44)
[2020-02-09 20:00] VITALS: BP 120/40
[2020-02-09] MEDS ORDERED: AMINOCAPROIC ACID 500 MG TABLET PO SCH (21:00)
[2020-02-09] MEDS: ROSUVASTATIN CALCIUM 5 MG PO SCH (21:00)
--- NOTE | 2020-02-09 22:01 | NUR ---
C/O PAIN THROUGHOUT ENTIRE BODY, SPECIFICALLY IN THE BONES. PT REPORTS "IT HURTS TO MOVE". ADMIN PAIN MED PER SEP. WILL MONITOR FOR DESIRED EFFECTIVENESS. CALL LIGHT WITHIN REACH. INSTRUCTED PT TO CALL FOR ASSISTANCE BEFORE GETTING OUT OF BED, BED ALARM ON.
[2020-02-10] VITALS (7 sets, daily range): BP systolic 103–130; BP diastolic 35–48
[2020-02-10] MEDS: AMINOCAPROIC ACID 500 MG TABLET PO SCH ×3 (05:06→16:48)
[2020-02-10] MEDS: SUCRALFATE 1 GM TABLET PO SCH ×3 (05:49→16:55)
--- NOTE | 2020-02-10 05:52 | NUR ---
LAB INFORMED [employer] UP PERSON THAT I WAS UNABLE TO ACCESS THE PT'S IMPLANTED DEVICE TO COLLECT BLOOD. SHE SAID SHE WOULD SEND SOMEONE TO [facility].
[2020-02-10 07:02] LABS: EOSINOPHILS % (AUTO) 2.8 % (0.0-8.0); HEMATOCRIT 24.4 % (36-48); LYMPHOCYTES % (AUTO) 2.8 % (21.0-51.0); MEAN CORPUSCULAR HEMOGLOBIN 29.9 pg (27.0-33.0); MEAN CORPUSCULAR VOLUME 93.5 fL (79-99); MONOCYTES % (AUTO) 2.8 % (3.0-13.0); NEUTROPHILS % (AUTO) 66.8 % (40.0-77.0); NUCLEATED RED BLOOD CELLS 0.3 % (0.0-0.19); RED BLOOD CELL COUNT(AUTO) 2.61 MIL/uL (4.00-5.50)
[2020-02-10 07:05] LABS: WHITE BLOOD COUNT (AUTO) 115.7 K/uL (4.8-10.8)
[2020-02-10 07:06] LABS: PLATELET COUNT (AUTO) 892 K/uL (130-400)
[2020-02-10 07:24] LABS: ALBUMIN 3.4 g/dL (3.5-5.0); BILIRUBIN,TOTAL 0.6 mg/dL (0.2-1.0); CREATININE 2.1 mg/dL (0.5-1.5); POTASSIUM 3.2 mmol/L (3.5-5.1)
[2020-02-10 07:58] LABS: BAND NEUTROPHILS % (MANUAL) 15 % (0-2); BASOPHILS % (MANUAL) 4 % (0-2); EOSINOPHILS % (MANUAL) 1 % (1-6); LYMPHOCYTES % (MANUAL) 5 % (22-44); MAN.DIFF COMMENT-IMPRESSION MANUAL DIFFERENTIAL; METAMYELOCYTES % 1 % (0-0); MONOCYTES % (MANUAL) 3 % (2-9); MYELOCYTES % 3 % (0-0); PLATELET MORPHOLOGY COMMENT MARKED INCREASE; REACTIVE LYMPHOCYTES 2 % (0-0); SEGMENTED NEUTROPHILS % 66 % (40-70)
[2020-02-10] MEDS: NILOTINIB HCL 150 MG PO SCH ×2 (09:00→21:00)
[2020-02-10] MEDS: CHOLECALCIFEROL PO SCH (09:00)
[2020-02-10] MEDS: AMINOCAPROIC ACID 1000 MG PO SCH ×2 (09:00→14:00)
[2020-02-10] MEDS: TORSEMIDE 20 MG TAB PO SCH ×2 (09:35→21:00)
[2020-02-10] MEDS: FERROUS SULFATE 325 MG TABLET.DR PO SCH ×2 (09:35→20:58)
[2020-02-10] MEDS: LINAGLIPTIN 5 MG TABLET PO SCH (09:37)
[2020-02-10] MEDS: CYANOCOBALAMIN (VITAMIN B-12) 1,000 MCG TABLET PO SCH (09:37)
[2020-02-10] MEDS: ALLOPURINOL 100 MG TABLET PO SCH ×2 (09:38→21:03)
[2020-02-10] MEDS: PANTOPRAZOLE SODIUM 40 MG TABLET.DR PO SCH ×2 (09:39→20:58)
[2020-02-10] MEDS: GABAPENTIN 100 MG CAPSULE PO SCH (09:40)
[2020-02-10] MEDS: METOPROLOL TARTRATE 25 MG TAB PO SCH ×2 (09:40→20:59)
[2020-02-10] MEDS: FOLIC ACID/VITAMIN B COMP W-C 1 CAP TAB PO SCH (09:40)
[2020-02-10] MEDS: FOLIC ACID 1 MG TABLET PO SCH (09:41)
[2020-02-10] MEDS: SODIUM CHLORIDE 0.9% 1000ML 1,000 ML IV SCH ×2 (09:55→16:55)
[2020-02-10] MEDS: HYDROXYUREA 500 MG CAP PO SCH (14:41)
[2020-02-10] MEDS: CEFTRIAXONE SODIUM 1 GM IVP SCH (14:41)
[2020-02-10] MEDS: MIRTAZAPINE 15 MG TABLET PO SCH (20:59)
[2020-02-10] MEDS: ROSUVASTATIN CALCIUM 5 MG PO SCH (21:00)
[2020-02-11] MEDS: AMINOCAPROIC ACID 500 MG TABLET PO SCH ×4 (00:07→18:08)
[2020-02-11] MEDS: TORSEMIDE 20 MG TAB PO SCH ×3 (03:17→21:38)
[2020-02-11 03:51] LABS: BASOPHILS % (AUTO) 1.5 % (0.0-5.0); EOSINOPHILS % (AUTO) 2.7 % (0.0-8.0); HEMATOCRIT 23.3 % (36-48); LYMPHOCYTES % (AUTO) 1.7 % (21.0-51.0); MEAN CORPUSCULAR HEMOGLOBIN 29.1 pg (27.0-33.0); MEAN CORPUSCULAR HGB CONC 31.3 g/dL (32.0-36.0); MEAN CORPUSCULAR VOLUME 92.8 fL (79-99); MONOCYTES % (AUTO) 3.6 % (3.0-13.0); NEUTROPHILS % (AUTO) 69.3 % (40.0-77.0); NUCLEATED RED BLOOD CELLS 0.2 % (0.0-0.19); RED BLOOD CELL COUNT(AUTO) 2.51 MIL/uL (4.00-5.50); RED CELL DISTRIBUTION WIDTH 18.8 % (11.0-15.5)
[2020-02-11 03:55] LABS: PLATELET COUNT (AUTO) 794 K/uL (130-400); WHITE BLOOD COUNT (AUTO) 89.5 K/uL (4.8-10.8)
[2020-02-11 04:00] VITALS: BP 125/39
[2020-02-11 04:05] LABS: CREATININE 1.9 mg/dL (0.5-1.5); MAGNESIUM 1.8 mg/dL (1.80-2.40); URIC ACID 10.3 mg/dL (2.6-7.2)
[2020-02-11 08:00] VITALS: BP 122/41
[2020-02-11] MEDS: CHOLECALCIFEROL PO SCH (09:00)
[2020-02-11] MEDS: NILOTINIB HCL 150 MG PO SCH ×2 (09:00→21:00)
[2020-02-11] MEDS: ALLOPURINOL 100 MG TABLET PO SCH ×2 (09:53→21:38)
[2020-02-11] MEDS: FOLIC ACID 1 MG TABLET PO SCH (09:53)
[2020-02-11] MEDS: FOLIC ACID/VITAMIN B COMP W-C 1 CAP TAB PO SCH (09:53)
[2020-02-11] MEDS: METOPROLOL TARTRATE 25 MG TAB PO SCH ×2 (09:53→21:00)
[2020-02-11] MEDS: CYANOCOBALAMIN (VITAMIN B-12) 1,000 MCG TABLET PO SCH (09:53)
[2020-02-11] MEDS: FERROUS SULFATE 325 MG TABLET.DR PO SCH ×2 (09:53→21:38)
[2020-02-11] MEDS: LINAGLIPTIN 5 MG TABLET PO SCH (09:53)
[2020-02-11] MEDS: GABAPENTIN 100 MG CAPSULE PO SCH (09:54)
[2020-02-11] MEDS: PANTOPRAZOLE SODIUM 40 MG TABLET.DR PO SCH ×2 (09:54→21:38)
[2020-02-11] MEDS: SUCRALFATE 1 GM TABLET PO SCH ×3 (09:56→16:34)
[2020-02-11 11:23] VITALS: BP 129/64
[2020-02-11] MEDS: CEFTRIAXONE SODIUM 1 GM IVP SCH (12:19)
[2020-02-11] MEDS: SODIUM CHLORIDE 0.9% 1000ML 1,000 ML IV SCH (12:35)
[2020-02-11] MEDS ORDERED: POTASSIUM CHLORIDE 10% ELIXIR 20 MEQ/15 ML UDCUP PO PRN (14:15)
[2020-02-11] MEDS ORDERED: LORAZEPAM 2 MG/ML 1 ML VIAL IVP PRN (14:15)
[2020-02-11] MEDS ORDERED: LIDOCAINE HCL-MPF 1% 2ML VIAL IV PRN (14:15)
[2020-02-11] MEDS ORDERED: POTASSIUM CHLORIDE 10MEQ/100ML 100 ML IV PRN (14:15)
[2020-02-11 16:00] VITALS: BP 111/40
[2020-02-11] MEDS: POTASSIUM CHLORIDE 20 MEQ ERTAB PO PRN (18:15)
[2020-02-11 20:00] VITALS: BP 120/33
[2020-02-11] MEDS: ROSUVASTATIN CALCIUM 5 MG PO SCH (21:00)
[2020-02-11] MEDS: MIRTAZAPINE 15 MG TABLET PO SCH (21:38)
[2020-02-11 21:45] VITALS: BP 121/49
[2020-02-12] VITALS: BP 118/42
[2020-02-12] MEDS: AMINOCAPROIC ACID 500 MG TABLET PO SCH ×5 (00:59→23:50)
[2020-02-12] MEDS: SODIUM CHLORIDE 0.9% 1000ML 1,000 ML IV SCH ×2 (01:55→16:56)
[2020-02-12 04:00] VITALS: BP 125/37
[2020-02-12 04:35] LABS: BASOPHILS % (AUTO) 1.7 % (0.0-5.0); EOSINOPHILS % (AUTO) 2.6 % (0.0-8.0); HEMATOCRIT 23.3 % (36-48); LYMPHOCYTES % (AUTO) 1.7 % (21.0-51.0); MEAN CORPUSCULAR HGB CONC 30.9 g/dL (32.0-36.0); MONOCYTES % (AUTO) 3.3 % (3.0-13.0); NEUTROPHILS % (AUTO) 68.6 % (40.0-77.0); NUCLEATED RED BLOOD CELLS 0.3 % (0.0-0.19); RED BLOOD CELL COUNT(AUTO) 2.48 MIL/uL (4.00-5.50)
[2020-02-12 05:02] LABS: BILIRUBIN,TOTAL 0.5 mg/dL (0.2-1.0); CREATININE 1.7 mg/dL (0.5-1.5); MAGNESIUM 2.4 mg/dL (1.80-2.40); PHOSPHORUS 4.1 mg/dL (2.5-4.9); POTASSIUM 3.2 mmol/L (3.5-5.1); TOTAL PROTEIN, SERUM 5.8 g/dL (6.0-8.3)
[2020-02-12 05:17] LABS: PLATELET COUNT (AUTO) 723 K/uL (130-400); WHITE BLOOD COUNT (AUTO) 78.7 K/uL (4.8-10.8)
[2020-02-12 08:00] VITALS: BP 117/50
[2020-02-12] MEDS: NILOTINIB HCL 150 MG PO SCH ×2 (09:00→20:32)
[2020-02-12] MEDS: CHOLECALCIFEROL PO SCH (09:00)
[2020-02-12] MEDS: TRAMADOL HCL 50 MG TABLET PO PRN ×2 (10:31→21:25)
[2020-02-12] MEDS: FERROUS SULFATE 325 MG TABLET.DR PO SCH ×2 (10:32→20:27)
[2020-02-12] MEDS: TORSEMIDE 20 MG TAB PO SCH ×2 (10:32→20:27)
[2020-02-12] MEDS: METOPROLOL TARTRATE 25 MG TAB PO SCH ×2 (10:33→20:27)
[2020-02-12] MEDS: FOLIC ACID 1 MG TABLET PO SCH (10:33)
[2020-02-12] MEDS: FOLIC ACID/VITAMIN B COMP W-C 1 CAP TAB PO SCH (10:34)
[2020-02-12] MEDS: PANTOPRAZOLE SODIUM 40 MG TABLET.DR PO SCH ×2 (10:34→20:27)
[2020-02-12] MEDS: GABAPENTIN 100 MG CAPSULE PO SCH (10:34)
[2020-02-12] MEDS: ALLOPURINOL 100 MG TABLET PO SCH ×2 (10:35→20:26)
[2020-02-12] MEDS: CYANOCOBALAMIN (VITAMIN B-12) 1,000 MCG TABLET PO SCH (10:35)
[2020-02-12] MEDS: LINAGLIPTIN 5 MG TABLET PO SCH (10:35)
[2020-02-12] MEDS: POTASSIUM CHLORIDE 20 MEQ ERTAB PO PRN ×2 (10:50→16:55)
[2020-02-12] MEDS: SUCRALFATE 1 GM TABLET PO SCH ×3 (10:51→16:56)
[2020-02-12 11:00] VITALS: BP 124/49
[2020-02-12 16:00] VITALS: BP 115/55
[2020-02-12] MEDS: CEFTRIAXONE SODIUM 1 GM IVP SCH (16:52)
[2020-02-12 20:00] VITALS: BP 107/47
[2020-02-12] MEDS: MIRTAZAPINE 15 MG TABLET PO SCH (20:27)
[2020-02-12] MEDS: ROSUVASTATIN CALCIUM 5 MG PO SCH (20:33)
[2020-02-12] MEDS: HYDROMORPHONE 1 MG/1 ML AMP IVP PRN ×2 (22:25→23:51)
[2020-02-13] VITALS: BP 119/36
[2020-02-13] MEDS: HYDROMORPHONE 1 MG/1 ML AMP IVP PRN ×3 (01:34→05:46)
[2020-02-13] MEDS: SODIUM CHLORIDE 0.9% 1000ML 1,000 ML IV SCH ×2 (03:42→19:52)
[2020-02-13 04:00] VITALS: BP 94/43
[2020-02-13] MEDS: AMINOCAPROIC ACID 500 MG TABLET PO SCH ×4 (05:45→23:30)
[2020-02-13 06:09] LABS: EOSINOPHILS % (AUTO) 2.2 % (0.0-8.0); HEMATOCRIT 24.2 % (36-48); MEAN CORPUSCULAR HEMOGLOBIN 29.1 pg (27.0-33.0); MEAN CORPUSCULAR HGB CONC 30.6 g/dL (32.0-36.0); MEAN CORPUSCULAR VOLUME 95.3 fL (79-99); MONOCYTES % (AUTO) 2.3 % (3.0-13.0); NUCLEATED RED BLOOD CELLS 0.2 % (0.0-0.19); RED BLOOD CELL COUNT(AUTO) 2.54 MIL/uL (4.00-5.50); RED CELL DISTRIBUTION WIDTH 19.2 % (11.0-15.5)
[2020-02-13 06:13] LABS: PLATELET COUNT (AUTO) 837 K/uL (130-400)
[2020-02-13 06:27] LABS: CREATININE 1.8 mg/dL (0.5-1.5); PHOSPHORUS 4.9 mg/dL (2.5-4.9); POTASSIUM 3.6 mmol/L (3.5-5.1)
[2020-02-13] MEDS: SUCRALFATE 1 GM TABLET PO SCH ×3 (07:30→17:31)
[2020-02-13 08:00] VITALS: BP 125/49
[2020-02-13] MEDS: NILOTINIB HCL 150 MG PO SCH ×2 (09:00→21:00)
[2020-02-13] MEDS: CHOLECALCIFEROL PO SCH (09:00)
[2020-02-13] MEDS: CYANOCOBALAMIN (VITAMIN B-12) 1,000 MCG TABLET PO SCH (09:00)
[2020-02-13] MEDS: PANTOPRAZOLE SODIUM 40 MG TABLET.DR PO SCH ×2 (09:29→23:30)
[2020-02-13] MEDS: FERROUS SULFATE 325 MG TABLET.DR PO SCH ×2 (09:29→23:29)
[2020-02-13] MEDS: FOLIC ACID/VITAMIN B COMP W-C 1 CAP TAB PO SCH (09:29)
[2020-02-13] MEDS: GABAPENTIN 100 MG CAPSULE PO SCH (09:29)
[2020-02-13] MEDS: LINAGLIPTIN 5 MG TABLET PO SCH (09:29)
[2020-02-13] MEDS: FOLIC ACID 1 MG TABLET PO SCH (09:29)
[2020-02-13] MEDS: METOPROLOL TARTRATE 25 MG TAB PO SCH ×2 (09:29→23:30)
[2020-02-13] MEDS: ALLOPURINOL 100 MG TABLET PO SCH ×2 (09:30→23:29)
[2020-02-13] MEDS: TORSEMIDE 20 MG TAB PO SCH ×2 (09:30→23:30)
[2020-02-13 12:00] VITALS: BP 112/54
[2020-02-13] MEDS: CEFTRIAXONE SODIUM 1 GM IVP SCH (12:23)
[2020-02-13] MEDS: TRAMADOL HCL 50 MG TABLET PO PRN (14:08)
[2020-02-13 16:00] VITALS: BP 109/73
[2020-02-13] MEDS ORDERED: DEXAMETHASONE SOD PHOSPHATE 10MG/ML 1ML VIAL IVP SCH (18:00)
[2020-02-13] MEDS ORDERED: DiphenhydrAMINE HCL 50 MG/ML VIAL IV SCH (18:00)
[2020-02-13 19:30] VITALS: BP 115/58
[2020-02-13] MEDS ORDERED: SODIUM CHLORIDE 0.9% 500ML 500 ML IV ONE (20:24)
--- NOTE | 2020-02-13 20:25 | NUR ---
BLOOD ONE UNIT OF PACK RED BLOOD CELLS ORDERED TO BE TRANSFUSED FOR MRS. SMITH. UNIT NUMBER [id number] INITIATED WITH VITAL SIGNS NORMAL AT TEMP 98.0 RESPIRATIONS 18 BPM BLOOD PRESSURE 115/58 AND HEART RATE AT 86. NO REACTIONS NOTED AT THIS TIME WILL MONITOR.
--- NOTE | 2020-02-13 20:40 | NUR ---
BLOOD UNIT OF RED BLOOD CELLS INFUSING NO REACTIONS NOTED AT THIS TIME. PATIENT RESTING IN BED NO COMPLAINTS OR CONCERNS AT THIS TIME.
[2020-02-13] MEDS: ROSUVASTATIN CALCIUM 5 MG PO SCH (21:00)
[2020-02-13] MEDS: HYDROMORPHONE HCL 2 MG/ML VIAL IVP PRN ×2 (22:03→23:10)
[2020-02-13] MEDS: MIRTAZAPINE 15 MG TABLET PO SCH (23:30)
--- NOTE | 2020-02-13 23:40 | NUR ---
BLOOD UNIT OF RED BLOOD CELLS COMPLETED WITH NO REACTIONS NOTED PATIENT RESTING IN BED.
[2020-02-14] VITALS: BP 119/96
[2020-02-14] MEDS: HYDROMORPHONE HCL 2 MG/ML VIAL IVP PRN ×5 (00:48→06:01)
[2020-02-14 04:00] VITALS: BP 112/65
[2020-02-14 04:44] LABS: HEMATOCRIT 29.8 % (36-48); MEAN CORPUSCULAR HEMOGLOBIN 30.2 pg (27.0-33.0); MEAN CORPUSCULAR HGB CONC 31.5 g/dL (32.0-36.0); MEAN CORPUSCULAR VOLUME 95.8 fL (79-99); RED BLOOD CELL COUNT(AUTO) 3.11 MIL/uL (4.00-5.50); RED CELL DISTRIBUTION WIDTH 18.8 % (11.0-15.5)
[2020-02-14 04:58] LABS: ALBUMIN 3.2 g/dL (3.5-5.0); BILIRUBIN,TOTAL 0.7 mg/dL (0.2-1.0); CREATININE 1.8 mg/dL (0.5-1.5); POTASSIUM 4.1 mmol/L (3.5-5.1); TOTAL PROTEIN, SERUM 6.3 g/dL (6.0-8.3)
[2020-02-14 04:59] LABS: PLATELET COUNT (AUTO) 874 K/uL (130-400); WHITE BLOOD COUNT (AUTO) 80.4 K/uL (4.8-10.8)
[2020-02-14 05:43] LABS: BAND NEUTROPHILS % (MANUAL) 23 % (0-2); LYMPHOCYTES % (MANUAL) 3 % (22-44); MAN.DIFF COMMENT-IMPRESSION MANUAL DIFFERENTIAL; METAMYELOCYTES % 6 % (0-0); MONOCYTES % (MANUAL) 1 % (2-9); MYELOCYTES % 2 % (0-0); SEGMENTED NEUTROPHILS % 65 % (40-70)
[2020-02-14 05:44] LABS: PLATELET MORPHOLOGY COMMENT MARKED INCREASE
[2020-02-14] MEDS: AMINOCAPROIC ACID 500 MG TABLET PO SCH ×2 (06:00→11:29)
[2020-02-14] MEDS: SUCRALFATE 1 GM TABLET PO SCH ×2 (07:59→11:29)
[2020-02-14] MEDS: LINAGLIPTIN 5 MG TABLET PO SCH (07:59)
[2020-02-14] MEDS: FOLIC ACID/VITAMIN B COMP W-C 1 CAP TAB PO SCH (07:59)
[2020-02-14] MEDS: GABAPENTIN 100 MG CAPSULE PO SCH (08:00)
[2020-02-14] MEDS: FERROUS SULFATE 325 MG TABLET.DR PO SCH (08:00)
[2020-02-14] MEDS: FOLIC ACID 1 MG TABLET PO SCH (08:00)
[2020-02-14] MEDS: TORSEMIDE 20 MG TAB PO SCH (08:00)
[2020-02-14] MEDS: ALLOPURINOL 100 MG TABLET PO SCH (08:00)
[2020-02-14] MEDS: PANTOPRAZOLE SODIUM 40 MG TABLET.DR PO SCH (08:00)
[2020-02-14] MEDS: NILOTINIB HCL 150 MG PO SCH (08:01)
[2020-02-14] MEDS: CHOLECALCIFEROL PO SCH (08:01)
[2020-02-14] MEDS: METOPROLOL TARTRATE 25 MG TAB PO SCH (08:01)
[2020-02-14] MEDS: CYANOCOBALAMIN (VITAMIN B-12) 1,000 MCG TABLET PO SCH (08:01)
[2020-02-14 08:08] VITALS: BP 121/45
[2020-02-14 12:09] VITALS: BP 123/55
[2020-02-14] MEDS: CEFTRIAXONE SODIUM 1 GM IVP SCH (13:34)
[2020-02-14] MEDS ORDERED: HEPARIN SODIUM/PF 100UNIT/ML 5ML SYRINGE IV SCH (15:00)
--- NOTE | 2020-02-14 16:30 | NUR ---
DISCHARGE PATIENT GIVEN DISCHARGE INSTRUCTIONS VIA TEACH BACK. CORONA-CATH TO RIGHT CHEST AREA DE-ACCESSED BY MAXWELL DICK, PORT-A-CATH HEPARINIZED. PATIENT STABLE AT THIS TIME. PATIENT TO FOLLOW UP WITH DR. ARANGO ON 02/21/20 AT 1345. NO RX GIVEN, PATIENT INSTRUCTED TO TAKE HOME MEDICATIONS ORDERED BY DR. ARANGO. PATIENT VOICED UNDERSTANDING.
== END 2020-02-14 16:25 | disposition home or self-care (01) | DRG 378 ==
LOC: EDH 13:01 → EDHIP 14:21 → 3DH 17:15
PROVIDERS: ADMIT Internal Medicine; ATTEND Internal Medicine
PROC: 30233N1 Transfusion of Nonautologous Red Blood Cells into Peripheral Vein, Percutaneous Approach (ICD-10-PCS; principal; 2020-02-07)
DX: K92.2 Gastrointestinal hemorrhage, unspecified (principal); C92.10 Chronic myeloid leukemia, BCR/ABL-positive, not having achieved remission; N17.9 Acute kidney failure, unspecified; N39.0 Urinary tract infection, site not specified; I13.0 Hypertensive heart and chronic kidney disease with heart failure and stage 1 through stage 4 chronic kidney disease, or unspecified chronic kidney disease; D64.9 Anemia, unspecified; Z66 Do not resuscitate; I25.10 Atherosclerotic heart disease of native coronary artery without angina pectoris; E11.22 Type 2 diabetes mellitus with diabetic chronic kidney disease; N18.9 Chronic kidney disease, unspecified; F32.9 Major depressive disorder, single episode, unspecified; R53.81 Other malaise; E11.40 Type 2 diabetes mellitus with diabetic neuropathy, unspecified; D50.0 Iron deficiency anemia secondary to blood loss (chronic); D69.6 Thrombocytopenia, unspecified; I50.9 Heart failure, unspecified; R62.7 Adult failure to thrive; Z68.26 Body mass index [BMI] 26.0-26.9, adult; Z90.711 Acquired absence of uterus with remaining cervical stump; Z88.0 Allergy status to penicillin; Z91.19 Patient's noncompliance with other medical treatment and regimen; Z90.49 Acquired absence of other specified parts of digestive tract; Z95.2 Presence of prosthetic heart valve; Z95.0 Presence of cardiac pacemaker; Z88.5 Allergy status to narcotic agent; Z98.49 Cataract extraction status, unspecified eye; Z83.3 Family history of diabetes mellitus; Z80.3 Family history of malignant neoplasm of breast; Z80.42 Family history of malignant neoplasm of prostate
CPT/HCPCS: 36415; 36430; 80048; 80053; 81001; 82270; 82550; 82948; 83735; 84100; 84484; 84550; 85025; 85027; 85610; 85730; 86850; 86900; 86901; 86922; 93005; G0378; J0696; J1100; J1170; J1200; J1642; J3490; J7040; P9016

== ENCOUNTER → 2020-02-22 | Outpatient (CLI) | payer OTHER ==
[~2020-02-22] MED LIST changes: +NILO150C PO; +TRAM50TA4 PO
== END | disposition home or self-care (01) ==
LOC: SHCH 08:22
PROVIDERS: ATTEND Internal Medicine Cardiovascular Disease
DX: I34.2 Nonrheumatic mitral (valve) stenosis (principal); Z95.2 Presence of prosthetic heart valve
CPT/HCPCS: 93306

== ENCOUNTER 2020-08-01 07:44 | Inpatient (IN) | payer MEDICARE, OTHER ==
[~2020-08-01] VITALS: Ht 162.6 cm; Wt 60.9 kg
[~2020-08-01 07:44] MED LIST changes: +MIRT-22 PO; -MIRT15TA6 PO
[2020-08-01 08:33] LABS: BASOPHILS % (AUTO) 0.2 % (0.0-5.0); HEMATOCRIT 21.4 % (36-48); LYMPHOCYTES % (AUTO) 5.9 % (21.0-51.0); MEAN CORPUSCULAR HEMOGLOBIN 30.9 pg (27.0-33.0); MEAN CORPUSCULAR HGB CONC 29.9 g/dL (32.0-36.0); MEAN CORPUSCULAR VOLUME 103.4 fL (79-99); MONOCYTES % (AUTO) 5.5 % (3.0-13.0); NEUTROPHILS % (AUTO) 88.1 % (40.0-77.0); PLATELET COUNT (AUTO) 93 K/uL (130-400); RED BLOOD CELL COUNT(AUTO) 2.07 MIL/uL (4.00-5.50); RED CELL DISTRIBUTION WIDTH 15.6 % (11.0-15.5); WHITE BLOOD COUNT (AUTO) 6.6 K/uL (4.8-10.8)
[2020-08-01 08:45] LABS: CREATININE 1.6 mg/dL (0.5-1.5)
[2020-08-01 08:50] LABS: ALBUMIN 2.9 g/dL (3.5-5.0); BILIRUBIN,TOTAL 0.6 mg/dL (0.2-1.0); TOTAL PROTEIN, SERUM 5.6 g/dL (6.0-8.3)
[2020-08-01 09:04] LABS: INR 1.11 (0.85-1.15); PROTHROMBIN TIME 11.8 SEC (9.6-11.6)
[2020-08-01 09:06] LABS: PARTIAL THROMBOPLASTIN TIME 28.3 SEC (26.3-35.5)
[2020-08-01] MEDS ORDERED: ONDANSETRON 4MG INJ ONE (09:53)
[2020-08-01] MEDS ORDERED: FAMOTIDINE 20MG VIAL IV ONE (09:54)
[2020-08-01] MEDS ORDERED: ACETAMINOPHEN 325 MG TAB PO PRN (10:15)
[2020-08-01] MEDS ORDERED: OCTREOTIDE ACETATE 1,250 MCG in 0.9% NACL 250ML 250 ML IV SCH (10:15)
[2020-08-01] MEDS ORDERED: LACTATED RINGERS 1000ML 1,000 ML IV SCH ×2 (10:15)
[2020-08-01] MEDS ORDERED: LACTATED RINGERS 1000ML IV PRN (10:15)
[2020-08-01] MEDS ORDERED: NOREPINEPHRIN 4MG/NS 250ML 250 ML IV PRN (10:15)
[2020-08-01] MEDS ORDERED: ACETAMINOPHEN 650 MG SUPPOSITORY RC PRN (10:15)
[2020-08-01] MEDS ORDERED: 0.9%NACL 1000ML 1,000 ML IV ONE (10:34)
[2020-08-01] MEDS ORDERED: PANTOPRAZOLE 40 MG/VIAL ONE (10:35)
[2020-08-01] MEDS ORDERED: PANTOPRAZOLE 40MG INJ 80 MG in 0.9%NACL 100ML 100 ML IVP SCH (10:36)
[2020-08-01] MEDS ORDERED: LACTATED RINGERS 1000ML 1,000 ML IV ONE (10:36)
[2020-08-01] MEDS ORDERED: LACTATED RINGERS 1000ML 1,000 ML IV PRN (10:45)
[2020-08-01 10:50] LABS: HEMATOCRIT 19.8 % (36-48)
[2020-08-01 11:09] LABS: CREATINE KINASE, TOTAL 19 U/L (21-232); MYOGLOBIN 62 ng/mL (10-92); TROPONIN I < 0.04 ng/mL (0.00-0.06)
[2020-08-01] MEDS ORDERED: FUROSEMIDE 20MG VIAL IV PRN (12:30)
[2020-08-01 12:45] LABS: APPEARANCE,URINE Cloudy (CLEAR); BILIRUBIN,URINE Negative (NEGATIVE); COLOR,URINE Yellow (YELLOW); GLUCOSE, URINE (UA) Negative (NEGATIVE); KETONES,URINE Negative (NEGATIVE); LEUKOCYTE ESTERASE ,URINE Large (NEGATIVE); NITRATE,URINE Positive (NEGATIVE); OCCULT BLOOD,URINE Trace (NEGATIVE); PROTEIN,URINE Negative (NEGATIVE); UROBILINOGEN,URINE 0.2 mg/dL (0.2-1.0)
[2020-08-01 13:01] LABS: BACTERIA,URINE Many /HPF (None Seen); MUCUS,URINE Few LPF (None Seen); SQUAMOUS EPITHELIAL CELL,UR Few /HPF (0-2)
[2020-08-01] MEDS ORDERED: FUROSEMIDE 20MG VIAL ONE (14:23)
[2020-08-01 15:33] VITALS: BP 135/108
[2020-08-01] MEDS: PANTOPRAZOLE 40 MG/VIAL IVP SCH (17:00)
[2020-08-01] MEDS ORDERED: 0.9% NACL 500ML IV.SOLN 500 ML IV ONE (17:50)
[2020-08-01] MEDS ORDERED: ONDANSETRON 4MG INJ IVP PRN (18:00)
[2020-08-01 18:26] LABS: HEMATOCRIT 23.7 % (36-48)
[2020-08-01 18:46] LABS: CREATINE KINASE, TOTAL 23 U/L (21-232); MYOGLOBIN 76 ng/mL (10-92); TROPONIN I < 0.04 ng/mL (0.00-0.06)
[2020-08-01 19:24] VITALS: BP 120/70
[2020-08-01 21:12] VITALS: BP 124/54
[2020-08-01] MEDS: METRONIDAZOLE 500MG/100ML BAG 100 ML IVPB SCH (22:00)
[2020-08-01 22:02] VITALS: BP 92/39
[2020-08-01 22:53] LABS: HEMATOCRIT 28.5 % (36-48)
[2020-08-01 23:02] VITALS: BP 85/33
[2020-08-01 23:19] LABS: CREATINE KINASE, TOTAL 28 U/L (21-232); MYOGLOBIN 108 ng/mL (10-92); TROPONIN I < 0.04 ng/mL (0.00-0.06)
[2020-08-01 23:56] VITALS: BP 117/51
[2020-08-02] VITALS (20 sets, daily range): BP systolic 97–144; BP diastolic 35–96
[2020-08-02 05:06] LABS: CREATININE 1.5 mg/dL (0.5-1.5); MAGNESIUM 1.9 mg/dL (1.80-2.40); POTASSIUM 4.6 mmol/L (3.5-5.1)
[2020-08-02 05:08] LABS: BASOPHILS % (AUTO) 0.3 % (0.0-5.0); EOSINOPHILS % (AUTO) 0.6 % (0.0-8.0); HEMATOCRIT 29.3 % (36-48); LYMPHOCYTES % (AUTO) 11.2 % (21.0-51.0); MEAN CORPUSCULAR HEMOGLOBIN 30.2 pg (27.0-33.0); MEAN CORPUSCULAR HGB CONC 32.4 g/dL (32.0-36.0); MONOCYTES % (AUTO) 6.5 % (3.0-13.0); NEUTROPHILS % (AUTO) 81.1 % (40.0-77.0); RED BLOOD CELL COUNT(AUTO) 3.15 MIL/uL (4.00-5.50); RED CELL DISTRIBUTION WIDTH 17.3 % (11.0-15.5); WHITE BLOOD COUNT (AUTO) 3.4 K/uL (4.8-10.8)
[2020-08-02 05:11] LABS: % IRON SATURATION 28.4 % (22-44)
[2020-08-02 05:29] LABS: PLATELET COUNT (AUTO) 96 K/uL (130-400)
[2020-08-02] MEDS: METRONIDAZOLE 500MG/100ML BAG 100 ML IVPB SCH ×3 (06:00→22:23)
[2020-08-02] MEDS: LEVOFLOXACIN 500 MG/D5W 100 ML 100 ML IV SCH (08:30)
[2020-08-02] MEDS: PANTOPRAZOLE 40 MG/VIAL IVP SCH (10:51)
[2020-08-02] MEDS: SUCRALFATE 1 GM TABLET PO SCH (17:00)
[2020-08-02] MEDS ORDERED: NON-FORMULARY MEDICATION 1 EACH (Rosuvastatin Calcium 5 MG) PO SCH (21:00)
[2020-08-02] MEDS ORDERED: NON-FORMULARY MEDICATION 1 EACH (Ferrous Sulfate (Iron) 325 MG) PO SCH (21:00)
[2020-08-02] MEDS: PANTOPRAZOLE 40 MG TAB DR PO SCH (22:21)
[2020-08-02] MEDS: ATORVASTATIN 10 MG TABLET PO SCH (22:22)
[2020-08-02] MEDS: FERROUS SULFATE 325 MG TABLET.DR PO SCH (22:22)
[2020-08-02] MEDS: METOPROLOL TARTRATE 25 MG TAB PO SCH (22:22)
[2020-08-02] MEDS: TORSEMIDE 20 MG TAB PO SCH (22:22)
[2020-08-02] MEDS: MIRTAZAPINE 15 MG TABLET PO SCH (22:23)
[2020-08-03 00:01] VITALS: BP 141/55
[2020-08-03 03:54] VITALS: BP 138/46
[2020-08-03] MEDS: METRONIDAZOLE 500MG/100ML BAG 100 ML IVPB SCH ×3 (07:04→20:02)
[2020-08-03] MEDS: SUCRALFATE 1 GM TABLET PO SCH ×3 (07:04→20:01)
[2020-08-03] MEDS: FOLIC ACID 1 MG TABLET PO SCH (08:34)
[2020-08-03] MEDS: LEVOFLOXACIN 500 MG/D5W 100 ML 100 ML IV SCH (08:34)
[2020-08-03] MEDS: Vitamin B Complex/Vit C/Folic Acid PO SCH (08:34)
[2020-08-03] MEDS: METOPROLOL TARTRATE 25 MG TAB PO SCH ×2 (08:34→20:01)
[2020-08-03] MEDS: FERROUS SULFATE 325 MG TABLET.DR PO SCH ×2 (08:34→20:01)
[2020-08-03] MEDS: TORSEMIDE 20 MG TAB PO SCH ×2 (08:34→20:01)
[2020-08-03] MEDS: PANTOPRAZOLE 40 MG TAB DR PO SCH ×2 (08:34→20:01)
[2020-08-03] MEDS: GABAPENTIN 100 MG CAPSULE PO SCH (08:35)
[2020-08-03] MEDS: CHOLECALCIFEROL 2000 UNIT PO SCH (08:35)
[2020-08-03] MEDS ORDERED: ASCORBIC ACID PO SCH (09:00)
[2020-08-03] MEDS ORDERED: [UNRECOGNIZED DRUG - OTHER] PO SCH (09:00)
[2020-08-03] MEDS ORDERED: BIOTIN PO SCH (09:00)
[2020-08-03] MEDS ORDERED: CHOLECALCIFEROL 2000 UNIT PO SCH (09:00)
[2020-08-03] MEDS ORDERED: FOLIC ACID PO SCH (09:00)
[2020-08-03] MEDS ORDERED: VITAMIN B COMPLEX PO SCH (09:00)
[2020-08-03 09:39] VITALS: BP 148/68
[2020-08-03] MEDS: IRON SUCROSE COMPLEX 100 MG in 0.9%NACL 50ML 50 ML IV SCH (11:47)
[2020-08-03] MEDS: DEXAMETHASONE SOD PHOSPHATE 4 MG/ML 1ML VIAL IVP SCH (11:50)
[2020-08-03 12:18] VITALS: BP 127/49
[2020-08-03 16:44] VITALS: BP 120/57
[2020-08-03] MEDS ORDERED: GUAIFENESIN-DM 200/20 MG 10 ML PO PRN (17:00)
[2020-08-03] MEDS: MIRTAZAPINE 15 MG TABLET PO SCH (20:01)
[2020-08-03] MEDS: ATORVASTATIN 10 MG TABLET PO SCH (20:01)
[2020-08-03 20:41] VITALS: BP 113/61
[2020-08-04 01:14] VITALS: BP 121/53
[2020-08-04 04:10] VITALS: BP 115/52
[2020-08-04] MEDS: INSULIN HUMULIN R 100 UNIT/ML 3ML SQ SCH ×4 (05:31→21:00)
[2020-08-04] MEDS: METRONIDAZOLE 500MG/100ML BAG 100 ML IVPB SCH ×2 (05:34→13:58)
[2020-08-04] MEDS: SUCRALFATE 1 GM TABLET PO SCH ×3 (05:34→17:59)
[2020-08-04 06:56] LABS: HEMATOCRIT 31.6 % (36-48); MEAN CORPUSCULAR HEMOGLOBIN 29.3 pg (27.0-33.0); MEAN CORPUSCULAR VOLUME 91.6 fL (79-99); PLATELET COUNT (AUTO) 91 K/uL (130-400); RED BLOOD CELL COUNT(AUTO) 3.45 MIL/uL (4.00-5.50); RED CELL DISTRIBUTION WIDTH 16.3 % (11.0-15.5)
[2020-08-04 07:39] LABS: ALBUMIN 3.3 g/dL (3.5-5.0); BILIRUBIN,TOTAL 0.8 mg/dL (0.2-1.0); CREATININE 1.5 mg/dL (0.5-1.5); CRP QUANTITATIVE 12.8 mg/L (0.00-9.0); POTASSIUM 3.5 mmol/L (3.5-5.1)
[2020-08-04 08:00] VITALS: BP 140/56
[2020-08-04 08:34] LABS: BAND NEUTROPHILS % (MANUAL) 1 % (0-2); BASOPHILS % (MANUAL) 1 % (0-2); LYMPHOCYTES % (MANUAL) 2 % (22-44); MAN.DIFF COMMENT-IMPRESSION MANUAL DIFFERENTIAL; MONOCYTES % (MANUAL) 5 % (2-9); SEGMENTED NEUTROPHILS % 91 % (40-70)
[2020-08-04 08:35] LABS: PLATELET MORPHOLOGY COMMENT MARKED DECREASE
[2020-08-04] MEDS: CHOLECALCIFEROL 2000 UNIT PO SCH (09:00)
[2020-08-04] MEDS: LEVOFLOXACIN 500 MG/D5W 100 ML 100 ML IV SCH (09:01)
[2020-08-04] MEDS: FOLIC ACID 1 MG TABLET PO SCH (09:02)
[2020-08-04] MEDS: DEXAMETHASONE SOD PHOSPHATE 4 MG/ML 1ML VIAL IVP SCH (09:02)
[2020-08-04] MEDS: PANTOPRAZOLE 40 MG TAB DR PO SCH ×2 (09:02→22:06)
[2020-08-04] MEDS: FERROUS SULFATE 325 MG TABLET.DR PO SCH ×2 (09:02→22:07)
[2020-08-04] MEDS: TORSEMIDE 20 MG TAB PO SCH ×2 (09:02→22:07)
[2020-08-04] MEDS: Vitamin B Complex/Vit C/Folic Acid PO SCH (09:02)
[2020-08-04] MEDS: METOPROLOL TARTRATE 25 MG TAB PO SCH ×2 (09:02→21:00)
[2020-08-04] MEDS: GABAPENTIN 100 MG CAPSULE PO SCH (09:08)
[2020-08-04 12:47] VITALS: BP 104/53
[2020-08-04] MEDS ORDERED: COMPOUND IV MISC 1 EACH IVSOLN MISC PRN (13:00)
[2020-08-04] MEDS: IRON SUCROSE COMPLEX 100 MG in 0.9%NACL 50ML 50 ML IV SCH (15:04)
[2020-08-04 16:48] VITALS: BP 122/54
[2020-08-04 20:00] VITALS: BP 118/53
[2020-08-04] MEDS: ATORVASTATIN 10 MG TABLET PO SCH (22:06)
[2020-08-04] MEDS: MIRTAZAPINE 15 MG TABLET PO SCH (22:06)
[2020-08-04] MEDS: NITROFURANTOIN MONOHYD/M-CRYST 100 MG CAPSULE PO SCH (22:07)
[2020-08-05] VITALS: BP 120/50
[2020-08-05 04:00] VITALS: BP 117/57
[2020-08-05] MEDS: INSULIN HUMULIN R 100 UNIT/ML 3ML SQ SCH ×3 (05:56→17:10)
[2020-08-05] MEDS: SUCRALFATE 1 GM TABLET PO SCH ×3 (06:24→16:30)
[2020-08-05 08:32] VITALS: BP 126/53
[2020-08-05] MEDS: PANTOPRAZOLE 40 MG TAB DR PO SCH (08:54)
[2020-08-05] MEDS: TORSEMIDE 20 MG TAB PO SCH (08:54)
[2020-08-05] MEDS: GABAPENTIN 100 MG CAPSULE PO SCH (08:54)
[2020-08-05] MEDS: Vitamin B Complex/Vit C/Folic Acid PO SCH (08:54)
[2020-08-05] MEDS: FERROUS SULFATE 325 MG TABLET.DR PO SCH (08:54)
[2020-08-05] MEDS: METOPROLOL TARTRATE 25 MG TAB PO SCH (08:54)
[2020-08-05] MEDS: FOLIC ACID 1 MG TABLET PO SCH (08:54)
[2020-08-05] MEDS: NITROFURANTOIN MONOHYD/M-CRYST 100 MG CAPSULE PO SCH (08:54)
[2020-08-05] MEDS: DEXAMETHASONE SOD PHOSPHATE 4 MG/ML 1ML VIAL IVP SCH (08:54)
[2020-08-05] MEDS: CHOLECALCIFEROL 2000 UNIT PO SCH (08:55)
[2020-08-05 10:00] LABS: HEMATOCRIT 33.3 % (36-48); MEAN CORPUSCULAR HEMOGLOBIN 29.6 pg (27.0-33.0); MEAN CORPUSCULAR HGB CONC 32.1 g/dL (32.0-36.0); MEAN CORPUSCULAR VOLUME 92.2 fL (79-99); RED BLOOD CELL COUNT(AUTO) 3.61 MIL/uL (4.00-5.50); RED CELL DISTRIBUTION WIDTH 16.3 % (11.0-15.5); WHITE BLOOD COUNT (AUTO) 8.2 K/uL (4.8-10.8)
[2020-08-05 10:10] LABS: MAGNESIUM 1.6 mg/dL (1.80-2.40)
[2020-08-05 10:24] LABS: POTASSIUM 2.9 mmol/L (3.5-5.1)
[2020-08-05] MEDS: PHENAZOPYRIDINE HCL 200 MG TABLET PO SCH ×2 (10:39→16:30)
[2020-08-05] MEDS ORDERED: KCL 20 MEQ ERTAB PO SCH (10:45)
[2020-08-05] MEDS ORDERED: MAGNESIUM 2GM PREMIX 50ML 50 ML IV PRN (11:42)
[2020-08-05 12:00] VITALS: BP 108/57
[2020-08-05] MEDS ORDERED: NITR100C4 PO (15:12)
[2020-08-05] MEDS ORDERED: DEXA6TAB7 PO (15:12)
[2020-08-05] MEDS ORDERED: HEPARIN PF LOCK 500 UNIT/5ML IV SCH (16:30)
[2020-08-05] MEDS: IRON SUCROSE COMPLEX 100 MG in 0.9%NACL 50ML 50 ML IV SCH (17:11)
[2020-08-05 17:24] VITALS: BP 125/67
[2020-10-22] MEDS ORDERED: POTA-183 PO (02:30)
== END 2020-08-05 18:40 | disposition home or self-care (01) | DRG 177 ==
LOC: EDH 07:44 → EDHIP 10:15 → 2BH 15:44 → 4BH 08-03 00:16
PROVIDERS: ADMIT Internal Medicine Critical Care Medicine; ATTEND Internal Medicine Critical Care Medicine
PROC: 30233N1 Transfusion of Nonautologous Red Blood Cells into Peripheral Vein, Percutaneous Approach (ICD-10-PCS; principal; 2020-08-01)
DX: U07.1 COVID-19 (principal); I50.31 Acute diastolic (congestive) heart failure; J12.82 Pneumonia due to coronavirus disease 2019; D61.818 Other pancytopenia; N17.9 Acute kidney failure, unspecified; N39.0 Urinary tract infection, site not specified; D62 Acute posthemorrhagic anemia; K92.0 Hematemesis; Z16.24 Resistance to multiple antibiotics; Z16.23 Resistance to quinolones and fluoroquinolones; C95.10 Chronic leukemia of unspecified cell type not having achieved remission; D84.821 Immunodeficiency due to drugs; K92.1 Melena; E87.6 Hypokalemia; Z66 Do not resuscitate; B96.20 Unspecified Escherichia coli [E. coli] as the cause of diseases classified elsewhere; I25.10 Atherosclerotic heart disease of native coronary artery without angina pectoris; E11.22 Type 2 diabetes mellitus with diabetic chronic kidney disease; H40.9 Unspecified glaucoma; T45.1X5A Adverse effect of antineoplastic and immunosuppressive drugs, initial encounter; N18.9 Chronic kidney disease, unspecified; Z90.710 Acquired absence of both cervix and uterus; Z95.0 Presence of cardiac pacemaker; Z95.3 Presence of xenogenic heart valve; Z90.49 Acquired absence of other specified parts of digestive tract; Z88.5 Allergy status to narcotic agent; Z98.49 Cataract extraction status, unspecified eye; Z87.440 Personal history of urinary (tract) infections; Y92.89 Other specified places as the place of occurrence of the external cause; Z79.899 Other long term (current) drug therapy; Z79.84 Long term (current) use of oral hypoglycemic drugs; Z88.0 Allergy status to penicillin
CPT/HCPCS: 36415; 71045; 74176; 78278; 80048; 80053; 81001; 82550; 82948; 83540; 83550; 83615; 83735; 83874; 84100; 84145; 84484; 85014; 85018; 85025; 85027; 85384; 85610; 85730; 86140; 86850; 86900; 86901; 86923; 87077; 87088; 87186; 87426; A9512; C9113; G0378; J1100; J1642; J1756; J1815; J1940; J1956; J2354; J2405; J3475; J3490; J7030; J7040; J7050; J7120; P9016

== ENCOUNTER 2020-10-21 14:56 | Observation (INO) | payer MEDICARE ==
[~2020-10-21] VITALS: Ht 167.6 cm; Wt 61.4 kg
[~2020-10-21 14:56] MED LIST changes: +DEXA6TAB7 PO; -MIRT-22 PO; +MIRT15TA6 PO; +NITR100C4 PO
[2020-10-21 16:24] LABS: CREATININE 1.4 mg/dL (0.5-1.5)
[2020-10-21 16:27] LABS: INR 1.07 (0.85-1.15); PROTHROMBIN TIME 11.6 SEC (9.6-11.6)
[2020-10-21 16:28] LABS: PARTIAL THROMBOPLASTIN TIME 25.5 SEC (26.3-35.5)
[2020-10-21 16:28] LABS: ALBUMIN 3.1 g/dL (3.5-5.0); MAGNESIUM 2.2 mg/dL (1.80-2.40); TOTAL PROTEIN, SERUM 6.3 g/dL (6.0-8.3)
[2020-10-21 17:06] LABS: BASOPHILS % (AUTO) 0.2 % (0.0-5.0); EOSINOPHILS % (AUTO) 1.6 % (0.0-8.0); LYMPHOCYTES % (AUTO) 6.8 % (21.0-51.0); MEAN CORPUSCULAR HEMOGLOBIN 30.1 pg (27.0-33.0); MEAN CORPUSCULAR HGB CONC 31.4 g/dL (32.0-36.0); MEAN CORPUSCULAR VOLUME 95.9 fL (79-99); MONOCYTES % (AUTO) 7.7 % (3.0-13.0); NEUTROPHILS % (AUTO) 83.2 % (40.0-77.0); PLATELET COUNT (AUTO) 118 K/uL (130-400); RED BLOOD CELL COUNT(AUTO) 2.19 MIL/uL (4.00-5.50); RED CELL DISTRIBUTION WIDTH 18.5 % (11.0-15.5); WHITE BLOOD COUNT (AUTO) 5.5 K/uL (4.8-10.8)
[2020-10-21 17:07] LABS: BILIRUBIN,TOTAL 0.5 mg/dL (0.2-1.0)
[2020-10-21 17:19] LABS: APPEARANCE,URINE Cloudy (CLEAR); BILIRUBIN,URINE Negative (NEGATIVE); COLOR,URINE Yellow (YELLOW); GLUCOSE, URINE (UA) Negative (NEGATIVE); KETONES,URINE Negative (NEGATIVE); LEUKOCYTE ESTERASE ,URINE Large (NEGATIVE); NITRATE,URINE Positive (NEGATIVE); OCCULT BLOOD,URINE Small (NEGATIVE); PROTEIN,URINE POS 1+ mg/dL (NEGATIVE); UROBILINOGEN,URINE 0.2 mg/dL (0.2-1.0)
[2020-10-21 17:41] LABS: BACTERIA,URINE Moderate /HPF (None Seen); MUCUS,URINE Few LPF (None Seen); SQUAMOUS EPITHELIAL CELL,UR Moderate /HPF (0-2); TRANSITIONAL EPI CELLS,URINE Few /HPF (None Seen); WBC,URINE 26-50 /HPF (0-1)
[2020-10-21 17:43] LABS: B-TYPE NATRIURETIC PEPTIDE 312 pg/mL (0-100)
[2020-10-21] MEDS ORDERED: MAG HYDROX/AL HYDROX/SIMETH ES 30 ML SUSP UDCUP PO PRN (19:30)
[2020-10-21] MEDS ORDERED: HYDRALAZINE HCL 20 MG/ML VIAL IV PRN (19:30)
[2020-10-21] MEDS ORDERED: ONDANSETRON HCL 4 MG/2 ML VIAL IV PRN (19:30)
[2020-10-21] MEDS ORDERED: ACETAMINOPHEN 325 MG TAB PO PRN ×2 (19:30)
[2020-10-21] MEDS ORDERED: LACTULOSE 20 GM/30 ML UDCUP PO PRN (19:30)
[2020-10-21] MEDS ORDERED: GUAIFENESIN-DM 200/20 MG 10 ML PO PRN (19:30)
[2020-10-21] MEDS: LEVOFLOXACIN 500 MG/D5W 100 ML 100 ML IV SCH (19:30)
[2020-10-21] MEDS ORDERED: FUROSEMIDE 10 MG/ML 2ML VIAL IV SCH (20:00)
[2020-10-21] MEDS ORDERED: TRAMADOL HCL 50 MG TABLET PO PRN (20:00)
[2020-10-21] MEDS: TORSEMIDE 20 MG TAB PO SCH (21:00)
[2020-10-21] MEDS: MIRTAZAPINE 15 MG TABLET PO SCH (21:00)
[2020-10-21] MEDS: METOPROLOL TARTRATE 25 MG TAB PO SCH (21:00)
[2020-10-21] MEDS: PANTOPRAZOLE SODIUM 40 MG TABLET.DR PO SCH (21:00)
[2020-10-21] MEDS: INSULIN HUMULIN R 100 UNIT/ML 3ML SQ SCH (21:00)
[2020-10-21] MEDS ORDERED: FAMOTIDINE 20MG TAB 20 MG TAB ONE (21:49)
[2020-10-21] MEDS ORDERED: MIRTAZAPINE 15 MG TABLET ONE (21:49)
[2020-10-21] MEDS ORDERED: LEVOFLOXACIN 500 MG/D5W 100 ML 100 ML ONE (21:50)
[2020-10-21] MEDS ORDERED: PANTOPRAZOLE SODIUM 40 MG TABLET.DR ONE (21:50)
[2020-10-22 00:25] VITALS: BP 133/56
[2020-10-22] MEDS ORDERED: POTA10TA11 PO (02:30)
[2020-10-22] MEDS ORDERED: AZIT500T4 PO (03:10)
[2020-10-22] MEDS ORDERED: LACT10SO5 PO (03:10)
[2020-10-22] MEDS ORDERED: LATA2.5D14 OU (03:34)
[2020-10-22 05:22] LABS: BASOPHILS % (AUTO) 0.3 % (0.0-5.0); EOSINOPHILS % (AUTO) 2.9 % (0.0-8.0); HEMATOCRIT 27.6 % (36-48); LYMPHOCYTES % (AUTO) 7.4 % (21.0-51.0); MEAN CORPUSCULAR HEMOGLOBIN 29.8 pg (27.0-33.0); MEAN CORPUSCULAR HGB CONC 32.6 g/dL (32.0-36.0); MEAN CORPUSCULAR VOLUME 91.4 fL (79-99); MONOCYTES % (AUTO) 7.7 % (3.0-13.0); NEUTROPHILS % (AUTO) 81.2 % (40.0-77.0); PLATELET COUNT (AUTO) 117 K/uL (130-400); RED BLOOD CELL COUNT(AUTO) 3.02 MIL/uL (4.00-5.50); WHITE BLOOD COUNT (AUTO) 5.9 K/uL (4.8-10.8)
[2020-10-22 05:35] LABS: CREATININE 1.4 mg/dL (0.5-1.5); POTASSIUM 4.2 mmol/L (3.5-5.1)
[2020-10-22 05:59] LABS: B-TYPE NATRIURETIC PEPTIDE 258 pg/mL (0-100)
[2020-10-22 06:17] VITALS: BP 118/50
[2020-10-22 07:30] VITALS: BP 114/50
[2020-10-22] MEDS: INSULIN HUMULIN R 100 UNIT/ML 3ML SQ SCH ×4 (07:30→21:00)
[2020-10-22] MEDS ORDERED: FAMOTIDINE 20MG TAB 20 MG TAB PO SCH (09:00)
[2020-10-22] MEDS: METOPROLOL TARTRATE 25 MG TAB PO SCH ×3 (09:34→21:51)
[2020-10-22] MEDS: PANTOPRAZOLE SODIUM 40 MG TABLET.DR PO SCH ×2 (09:35→20:17)
[2020-10-22] MEDS: TORSEMIDE 20 MG TAB PO SCH ×2 (09:35→20:18)
[2020-10-22] MEDS: FOLIC ACID 1 MG TABLET PO SCH (09:35)
[2020-10-22] MEDS: GABAPENTIN 100 MG CAPSULE PO SCH (09:35)
[2020-10-22] MEDS: SUCRALFATE 1 GM TABLET PO SCH ×3 (09:36→20:17)
[2020-10-22 11:00] VITALS: BP 120/29
[2020-10-22 16:00] VITALS: BP 102/40
[2020-10-22 20:00] VITALS: BP 103/49
[2020-10-22] MEDS ORDERED: LEVOFLOXACIN 500 MG/D5W 100 ML 100 ML IV ONE (20:05)
[2020-10-22] MEDS: MIRTAZAPINE 15 MG TABLET PO SCH (20:18)
[2020-10-22] MEDS: LEVOFLOXACIN 500 MG/D5W 100 ML 100 ML IV SCH (20:19)
[2020-10-23 00:08] VITALS: BP 109/50
[2020-10-23 04:00] VITALS: BP 100/49
[2020-10-23 05:15] LABS: HEMATOCRIT 28.5 % (36-48); MEAN CORPUSCULAR HEMOGLOBIN 29.3 pg (27.0-33.0); MEAN CORPUSCULAR HGB CONC 32.3 g/dL (32.0-36.0); MEAN CORPUSCULAR VOLUME 90.8 fL (79-99); PLATELET COUNT (AUTO) 116 K/uL (130-400); RED BLOOD CELL COUNT(AUTO) 3.14 MIL/uL (4.00-5.50); RED CELL DISTRIBUTION WIDTH 18.7 % (11.0-15.5); WHITE BLOOD COUNT (AUTO) 5.3 K/uL (4.8-10.8)
[2020-10-23 05:19] LABS: POTASSIUM 3.8 mmol/L (3.5-5.1)
[2020-10-23] MEDS: INSULIN HUMULIN R 100 UNIT/ML 3ML SQ SCH (05:34)
[2020-10-23 05:44] LABS: BAND NEUTROPHILS % (MANUAL) 2 % (0-2); BASOPHILS % (MANUAL) 1 % (0-2); EOSINOPHILS % (MANUAL) 1 % (1-6); LYMPHOCYTES % (MANUAL) 9 % (22-44); MONOCYTES % (MANUAL) 3 % (2-9); SEGMENTED NEUTROPHILS % 84 % (40-70)
[2020-10-23 05:45] LABS: MAN.DIFF COMMENT-IMPRESSION MANUAL DIFFERENTIAL; PLATELET MORPHOLOGY COMMENT SLIGHTLY DECREASED
[2020-10-23] MEDS: SUCRALFATE 1 GM TABLET PO SCH ×2 (06:25→08:31)
[2020-10-23 07:30] VITALS: BP 114/54
[2020-10-23] MEDS: FOLIC ACID 1 MG TABLET PO SCH (08:31)
[2020-10-23] MEDS: PANTOPRAZOLE SODIUM 40 MG TABLET.DR PO SCH (08:31)
[2020-10-23] MEDS: TORSEMIDE 20 MG TAB PO SCH (08:32)
[2020-10-23] MEDS: METOPROLOL TARTRATE 25 MG TAB PO SCH (08:32)
[2020-10-23] MEDS: GABAPENTIN 100 MG CAPSULE PO SCH (08:32)
[2020-10-23] MEDS ORDERED: HEPARIN SODIUM/PF 100UNIT/ML 5ML SYRINGE IV SCH (09:15)
[2020-11-01] MEDS ORDERED: LORAZEPAM 1 MG TABLET ONE (02:36)
== END 2020-10-23 10:30 | disposition home or self-care (01) ==
LOC: EDH 14:56 → OBSVTOIN 18:10 → UNDOADMOB 18:10 → EDHIP 18:10 → INTOOBSV 18:10 → 3CH 22:49 → EDHIP 22:49 → UNDODISOB 10-23 10:30
PROVIDERS: ADMIT Internal Medicine; ATTEND Internal Medicine
DX: D64.9 Anemia, unspecified (principal); Z20.822 Contact with and (suspected) exposure to COVID-19; C91.10 Chronic lymphocytic leukemia of B-cell type not having achieved remission; C92.10 Chronic myeloid leukemia, BCR/ABL-positive, not having achieved remission; I13.0 Hypertensive heart and chronic kidney disease with heart failure and stage 1 through stage 4 chronic kidney disease, or unspecified chronic kidney disease; E11.22 Type 2 diabetes mellitus with diabetic chronic kidney disease; I50.9 Heart failure, unspecified; N18.9 Chronic kidney disease, unspecified; N39.0 Urinary tract infection, site not specified; J96.90 Respiratory failure, unspecified, unspecified whether with hypoxia or hypercapnia; J90 Pleural effusion, not elsewhere classified; D69.6 Thrombocytopenia, unspecified; I25.10 Atherosclerotic heart disease of native coronary artery without angina pectoris; Z90.710 Acquired absence of both cervix and uterus; Z90.49 Acquired absence of other specified parts of digestive tract; Z95.1 Presence of aortocoronary bypass graft; Z95.2 Presence of prosthetic heart valve; Z92.21 Personal history of antineoplastic chemotherapy; Z99.81 Dependence on supplemental oxygen; Z79.899 Other long term (current) drug therapy; Z88.0 Allergy status to penicillin; Z88.5 Allergy status to narcotic agent
CPT/HCPCS: 36415 ×3; 36430; 71045 ×2; 80048 ×2; 80053; 81001; 82550; 82948 ×6; 83605; 83690; 83735; 83880 ×2; 84484; 85025 ×3; 85610; 85730; 86850; 86900; 86901; 86923; 87077; 87088; 87186; 87426; 93005; 96365; 96366; 96375; 97039 ×2; 97161; 99285; G0378 ×39; G8978; G8979; G8980; G8981; G8982; G8983; J1642; J1956 ×2; P9016; U0003

== ENCOUNTER 2022-06-04 12:15 | Emergency (ER) | payer MEDICARE ==
[~2022-06-04] VITALS: Ht 160 cm; Wt 64.0 kg
[~2022-06-04 12:15] MED LIST changes: +CYAN25006 SL; -DEXA6TAB7 PO; +HYDR25SU11 PR; +LACT10SO5 PO; +LATA2.5D14 OU; +MIRT-22 PO; -MIRT15TA6 PO; -NITR100C4 PO; +POTA-183 PO
[2022-06-04 13:33] LABS: BASOPHILS % (AUTO) 0.1 % (0.0-5.0); EOSINOPHILS % (AUTO) 0.2 % (0.0-8.0); LYMPHOCYTES % (AUTO) 3.7 % (21.0-51.0); MEAN CORPUSCULAR VOLUME 96.7 fL (79-99); MONOCYTES % (AUTO) 4.8 % (3.0-13.0); NEUTROPHILS % (AUTO) 90.5 % (40.0-77.0); PLATELET COUNT (AUTO) 103 K/uL (130-400); RED BLOOD CELL COUNT(AUTO) 2.14 MIL/uL (4.00-5.50); RED CELL DISTRIBUTION WIDTH 17.7 % (11.0-15.5); WHITE BLOOD COUNT (AUTO) 9.6 K/uL (4.8-10.8)
[2022-06-04 13:36] LABS: HEMATOCRIT 20.7 % (36-48)
[2022-06-04 13:42] LABS: CREATININE 1.8 mg/dL (0.5-1.5); POTASSIUM 4.4 mmol/L (3.5-5.1)
[2022-06-04 13:46] LABS: ALBUMIN 3.6 g/dL (3.5-5.0); TOTAL PROTEIN, SERUM 6.3 g/dL (6.0-8.3)
[2022-06-04 15:30] VITALS: BP 120/40
== END 2022-06-04 17:22 | disposition home or self-care (01) ==
LOC: EDH 12:15
DX: D50.0 Iron deficiency anemia secondary to blood loss (chronic) (principal); D64.89 Other specified anemias; I50.9 Heart failure, unspecified; E11.9 Type 2 diabetes mellitus without complications; R79.9 Abnormal finding of blood chemistry, unspecified; Z85.9 Personal history of malignant neoplasm, unspecified; Z79.899 Other long term (current) drug therapy; Z90.710 Acquired absence of both cervix and uterus; Z90.49 Acquired absence of other specified parts of digestive tract; Z90.89 Acquired absence of other organs; Z98.890 Other specified postprocedural states; Z88.0 Allergy status to penicillin; Z88.5 Allergy status to narcotic agent
CPT/HCPCS: 99285; 36430; 80053; 85025; 86850; 86900; 86901; 86923; 36415; P9016

== ENCOUNTER 2022-06-09 13:01 | Inpatient (IN) | payer MEDICARE ==
[~2022-06-09] VITALS: Ht 160 cm; Wt 68.6 kg
[2022-06-09] MEDS: PANTOPRAZOLE 40MG INJ 80 MG in 0.9%NACL 100ML 100 ML IVP SCH ×2
[2022-06-09 13:49] LABS: BASOPHILS % (AUTO) 0.2 % (0.0-5.0); EOSINOPHILS % (AUTO) 0.3 % (0.0-8.0); LYMPHOCYTES % (AUTO) 3.2 % (21.0-51.0); MEAN CORPUSCULAR HGB CONC 30.9 g/dL (32.0-36.0); MEAN CORPUSCULAR VOLUME 93.8 fL (79-99); MONOCYTES % (AUTO) 5.3 % (3.0-13.0); PLATELET COUNT (AUTO) 117 K/uL (130-400); RED BLOOD CELL COUNT(AUTO) 1.93 MIL/uL (4.00-5.50); RED CELL DISTRIBUTION WIDTH 17.9 % (11.0-15.5); WHITE BLOOD COUNT (AUTO) 11.5 K/uL (4.8-10.8)
[2022-06-09 13:55] LABS: HEMATOCRIT 18.1 % (36-48)
[2022-06-09 14:05] LABS: ALBUMIN 2.9 g/dL (3.5-5.0); B-TYPE NATRIURETIC PEPTIDE 336 pg/mL (0-100); CREATININE 1.6 mg/dL (0.5-1.5); MAGNESIUM 2.3 mg/dL (1.80-2.40); POTASSIUM 4.7 mmol/L (3.5-5.1); TOTAL PROTEIN, SERUM 5.4 g/dL (6.0-8.3)
[2022-06-09] MEDS ORDERED: ACETAMINOPHEN 650 MG SUPPOSITORY RC PRN (15:00)
[2022-06-09] MEDS ORDERED: ONDANSETRON 4MG INJ IVP PRN (15:00)
[2022-06-09] MEDS ORDERED: METOPROLOL TARTRATE 1 MG/ML 5ML VIAL IV PRN (15:00)
[2022-06-09] MEDS ORDERED: LACTULOSE 20 GM/30 ML UDCUP PO PRN (15:00)
[2022-06-09] MEDS ORDERED: CLONIDINE HCL 0.1 MG TABLET PO PRN (15:00)
[2022-06-09] MEDS ORDERED: HYDRALAZINE 20MG/ML VIAL IV PRN (15:00)
[2022-06-09] MEDS ORDERED: NON-FORMULARY MEDICATION 1 EACH (Lactulose 30 ML) PO PRN (15:00)
[2022-06-09 15:24] LABS: APPEARANCE,URINE CLEAR (CLEAR); BILIRUBIN,URINE NEGATIVE (NEGATIVE); COLOR,URINE LIGHT-YELLOW (YELLOW); GLUCOSE, URINE (UA) NEGATIVE (NEGATIVE); KETONES,URINE NEGATIVE (NEGATIVE); LEUKOCYTE ESTERASE ,URINE NEGATIVE Leu/uL (NEGATIVE); NITRATE,URINE NEGATIVE (NEGATIVE); OCCULT BLOOD,URINE NEGATIVE (NEGATIVE); PROTEIN,URINE NEGATIVE (NEGATIVE); UROBILINOGEN,URINE 0.2 mg/dL (0.2-1.0)
[2022-06-09] MEDS: IPRATROPIUM/ALBUTEROL SULFATE 3 ML SOLUTION IH SCH ×3 (15:25→23:19)
[2022-06-09] MEDS: MEROPENEM 1 GM VIAL IVP SCH (15:56)
[2022-06-09] MEDS: DOXYCYCLINE 100MG+NS 250ML IV SCH (15:56)
[2022-06-09 16:10] LABS: BACTERIA,URINE RARE /HPF (None Seen); RBC,URINE 0-1 /HPF (0-1); SQUAMOUS EPITHELIAL CELL,UR RARE /HPF (0-2); WBC,URINE 0-1 /HPF (0-1)
[2022-06-09 17:29] LABS: INR 1.05 (0.85-1.15); PROTHROMBIN TIME 11.4 SEC (9.6-11.6)
[2022-06-09 17:30] LABS: PARTIAL THROMBOPLASTIN TIME 23.9 SEC (26.3-35.5)
[2022-06-09] MEDS ORDERED: OCTREOTIDE ACETATE 1,250 MCG in 0.9% NACL 250ML 250 ML IV SCH (19:00)
[2022-06-09 20:11] VITALS: BP 149/52
[2022-06-09] MEDS: LATANOPROST 2.5 ML DROPS OU SCH (21:00)
[2022-06-09] MEDS: SUCRALFATE 1 GM TABLET PO SCH (21:00)
[2022-06-09] MEDS: HYDROCORTISONE 25 MG SUPPOSITORY PR SCH (21:00)
[2022-06-09] MEDS: METOPROLOL TARTRATE 25 MG TAB PO SCH (22:48)
[2022-06-10] VITALS (7 sets, daily range): BP systolic 74–135; BP diastolic 46–66
[2022-06-10 00:29] LABS: HEMATOCRIT 24.2 % (36-48)
[2022-06-10] MEDS: DOXYCYCLINE 100MG+NS 250ML IV SCH ×2 (03:16→15:21)
[2022-06-10] MEDS ORDERED: PANT40TA54 PO (03:51)
[2022-06-10] MEDS ORDERED: TORS20TA4 PO (03:51)
[2022-06-10] MEDS ORDERED: POLY15DR38 OP (03:51)
[2022-06-10] MEDS ORDERED: SITA25TA5 PO (03:51)
[2022-06-10] MEDS ORDERED: ROSU5TAB12 PO (03:51)
[2022-06-10] MEDS ORDERED: [UNRECOGNIZED DRUG - CODE] PO (03:51)
[2022-06-10] MEDS ORDERED: FOLI0.8T22 PO (03:51)
[2022-06-10] MEDS ORDERED: FOLI10PO5 MC (03:51)
[2022-06-10] MEDS ORDERED: GABA-529 PO (03:51)
[2022-06-10] MEDS ORDERED: MIRT45TA79 PO (03:51)
[2022-06-10 05:18] LABS: HEMATOCRIT 23.5 % (36-48); MEAN CORPUSCULAR HEMOGLOBIN 29.5 pg (27.0-33.0); MEAN CORPUSCULAR HGB CONC 33.2 g/dL (32.0-36.0); NUCLEATED RED BLOOD CELLS 0.5 % (0.0-0.19); RED BLOOD CELL COUNT(AUTO) 2.64 MIL/uL (4.00-5.50); RED CELL DISTRIBUTION WIDTH 16.7 % (11.0-15.5); WHITE BLOOD COUNT (AUTO) 6.3 K/uL (4.8-10.8)
[2022-06-10 05:42] LABS: CREATININE 1.4 mg/dL (0.5-1.5); MAGNESIUM 2.2 mg/dL (1.80-2.40); PHOSPHORUS 3.3 mg/dL (2.5-4.9); POTASSIUM 4.4 mmol/L (3.5-5.1)
[2022-06-10] MEDS ORDERED: SODIUM CHLORIDE 3% FOR INHALATION 4 ML/AMP VIAL.NEB IH ONE ×2 (06:09→10:59)
[2022-06-10] MEDS: IPRATROPIUM/ALBUTEROL SULFATE 3 ML SOLUTION IH SCH ×3 (06:36→18:52)
[2022-06-10] MEDS: INSULIN HUMULIN R 100 UNIT/ML 3ML SQ SCH ×3 (07:30→17:00)
[2022-06-10] MEDS: PANTOPRAZOLE 40MG INJ 80 MG in 0.9%NACL 100ML 100 ML IVP SCH ×2 (07:55→15:00)
[2022-06-10] MEDS: METOPROLOL TARTRATE 25 MG TAB PO SCH ×2 (08:25→20:20)
[2022-06-10] MEDS: SUCRALFATE 1 GM TABLET PO SCH ×3 (08:25→20:20)
[2022-06-10] MEDS: ACETAMINOPHEN 325 MG TAB PO PRN (08:28)
[2022-06-10] MEDS: CYANOCOBALAMIN (VITAMIN B-12) 1,000 MCG TABLET PO SCH (08:29)
[2022-06-10] MEDS: FERROUS SULFATE 325 MG TABLET.DR PO SCH (08:30)
[2022-06-10] MEDS: HYDROCORTISONE 25 MG SUPPOSITORY PR SCH ×2 (08:30→20:20)
[2022-06-10] MEDS ORDERED: PANTOPRAZOLE 40 MG/VIAL IVP SCH (09:00)
[2022-06-10] MEDS: Vitamin B Complex/Vit C/Folic Acid PO SCH (09:00)
[2022-06-10 12:27] LABS: HEMATOCRIT 25.4 % (36-48)
[2022-06-10] MEDS: MEROPENEM 1 GM VIAL IVP SCH (15:21)
[2022-06-10 18:00] LABS: HEMATOCRIT 26.2 % (36-48)
[2022-06-10] MEDS: PANTOPRAZOLE 40 MG/VIAL IVP SCH (20:19)
[2022-06-10] MEDS: LATANOPROST 2.5 ML DROPS OU SCH (21:00)
[2022-06-10] MEDS: MIRTAZAPINE 15 MG TABLET PO SCH (22:16)
[2022-06-11] MEDS: IPRATROPIUM/ALBUTEROL SULFATE 3 ML SOLUTION IH SCH ×5 (00:05→23:31)
[2022-06-11 00:15] VITALS: BP_SYST 120; BP_SYST 123; BP_DIAS 50; BP_DIAS 51; BP_DIAS 52
[2022-06-11] MEDS ORDERED: 0.9% NACL 250ML 250 ML ONE (03:33)
[2022-06-11] MEDS: DOXYCYCLINE 100MG+NS 250ML IV SCH ×2 (03:44→15:08)
[2022-06-11 04:05] LABS: BASOPHILS % (AUTO) 0.2 % (0.0-5.0); HEMATOCRIT 24.8 % (36-48); MEAN CORPUSCULAR HEMOGLOBIN 29.2 pg (27.0-33.0); MEAN CORPUSCULAR HGB CONC 30.6 g/dL (32.0-36.0); MEAN CORPUSCULAR VOLUME 95.4 fL (79-99); MONOCYTES % (AUTO) 5.4 % (3.0-13.0); NEUTROPHILS % (AUTO) 80.9 % (40.0-77.0); PLATELET COUNT (AUTO) 92 K/uL (130-400); RED CELL DISTRIBUTION WIDTH 17.2 % (11.0-15.5); WHITE BLOOD COUNT (AUTO) 5.4 K/uL (4.8-10.8)
[2022-06-11 04:17] LABS: CREATININE 1.5 mg/dL (0.5-1.5); POTASSIUM 4.4 mmol/L (3.5-5.1)
[2022-06-11] MEDS: INSULIN HUMULIN R 100 UNIT/ML 3ML SQ SCH ×3 (06:38→17:00)
[2022-06-11 08:00] VITALS: BP 143/58
[2022-06-11] MEDS: ACETAMINOPHEN 325 MG TAB PO PRN ×3 (08:53→15:15)
[2022-06-11] MEDS: FUROSEMIDE 40MG VIAL IV SCH (09:27)
[2022-06-11] MEDS: Vitamin B Complex/Vit C/Folic Acid PO SCH (10:42)
[2022-06-11] MEDS: SUCRALFATE 1 GM TABLET PO SCH ×3 (10:42→20:58)
[2022-06-11] MEDS: PANTOPRAZOLE 40 MG/VIAL IVP SCH ×2 (10:43→20:57)
[2022-06-11] MEDS: FERROUS SULFATE 325 MG TABLET.DR PO SCH (10:43)
[2022-06-11] MEDS: CYANOCOBALAMIN (VITAMIN B-12) 1,000 MCG TABLET PO SCH (10:43)
[2022-06-11] MEDS ORDERED: GABAPENTIN 100 MG CAPSULE ONE (10:55)
[2022-06-11] MEDS: HYDROCORTISONE 25 MG SUPPOSITORY PR SCH ×2 (10:58→20:59)
[2022-06-11] MEDS: GABAPENTIN 100 MG CAPSULE PO SCH (11:00)
[2022-06-11] MEDS ORDERED: GABAPENTIN 100 MG CAPSULE PO SCH (11:00)
[2022-06-11] MEDS: METOPROLOL TARTRATE 25 MG TAB PO SCH ×2 (11:11→20:58)
[2022-06-11 12:00] VITALS: BP 152/63
[2022-06-11] MEDS: MEROPENEM 1 GM VIAL IVP SCH (15:08)
[2022-06-11 16:00] VITALS: BP 142/70
[2022-06-11 20:00] VITALS: BP 136/58
[2022-06-11] MEDS: AMINOCAPROIC ACID 500MG TAB PO SCH ×4 (20:01→23:06)
[2022-06-11] MEDS: MIRTAZAPINE 15 MG TABLET PO SCH (21:00)
[2022-06-11] MEDS: LATANOPROST 2.5 ML DROPS OU SCH (21:03)
[2022-06-12] VITALS: BP 122/61
[2022-06-12] MEDS: DOXYCYCLINE 100MG+NS 250ML IV SCH ×2 (03:00→15:00)
[2022-06-12 03:56] LABS: BASOPHILS % (AUTO) 0.2 % (0.0-5.0); EOSINOPHILS % (AUTO) 1.9 % (0.0-8.0); HEMATOCRIT 26.4 % (36-48); LYMPHOCYTES % (AUTO) 8.1 % (21.0-51.0); MEAN CORPUSCULAR HEMOGLOBIN 29.4 pg (27.0-33.0); MEAN CORPUSCULAR HGB CONC 30.3 g/dL (32.0-36.0); MEAN CORPUSCULAR VOLUME 97.1 fL (79-99); MONOCYTES % (AUTO) 5.6 % (3.0-13.0); NEUTROPHILS % (AUTO) 83.3 % (40.0-77.0); PLATELET COUNT (AUTO) 91 K/uL (130-400); RED BLOOD CELL COUNT(AUTO) 2.72 MIL/uL (4.00-5.50); RED CELL DISTRIBUTION WIDTH 16.9 % (11.0-15.5); WHITE BLOOD COUNT (AUTO) 5.3 K/uL (4.8-10.8)
[2022-06-12 04:00] VITALS: BP 119/59
[2022-06-12 04:11] LABS: CREATININE 1.4 mg/dL (0.5-1.5)
[2022-06-12] MEDS ORDERED: NITROGLYCERIN 0.4 MG SL TAB SL ONE (04:14)
[2022-06-12] MEDS ORDERED: NITROGLYCERIN 0.4 MG SL TAB SL PRN (04:30)
[2022-06-12] MEDS ORDERED: MORPHINE 2 MG SYG IVP PRN (05:00)
[2022-06-12] MEDS: INSULIN HUMULIN R 100 UNIT/ML 3ML SQ SCH ×3 (05:49→17:00)
[2022-06-12] MEDS: IPRATROPIUM/ALBUTEROL SULFATE 3 ML SOLUTION IH SCH ×3 (06:54→18:48)
[2022-06-12] MEDS ORDERED: SODIUM CHLORIDE 3% FOR INHALATION 4 ML/AMP VIAL.NEB IH ONE (06:56)
[2022-06-12 07:00] VITALS: BP 121/64
[2022-06-12] MEDS: CYANOCOBALAMIN (VITAMIN B-12) 1,000 MCG TABLET PO SCH (08:45)
[2022-06-12] MEDS: GABAPENTIN 100 MG CAPSULE PO SCH (08:53)
[2022-06-12] MEDS: FERROUS SULFATE 325 MG TABLET.DR PO SCH (08:53)
[2022-06-12] MEDS: PANTOPRAZOLE 40 MG/VIAL IVP SCH ×2 (08:54→08:57)
[2022-06-12] MEDS: FUROSEMIDE 40MG VIAL IV SCH (08:54)
[2022-06-12] MEDS: ACETAMINOPHEN 325 MG TAB PO PRN (08:57)
[2022-06-12] MEDS: SUCRALFATE 1 GM TABLET PO SCH ×2 (09:15→17:41)
[2022-06-12] MEDS: Vitamin B Complex/Vit C/Folic Acid PO SCH (09:16)
[2022-06-12] MEDS: HYDROCORTISONE 25 MG SUPPOSITORY PR SCH (09:17)
[2022-06-12] MEDS: METOPROLOL TARTRATE 25 MG TAB PO SCH (09:17)
[2022-06-12 11:11] VITALS: BP 136/53
[2022-06-12] MEDS: MEROPENEM 1 GM VIAL IVP SCH (15:00)
[2022-06-12 16:28] VITALS: BP 142/57
[2022-06-12] MEDS ORDERED: DOXY100T21 PO (17:33)
[2022-06-12] MEDS ORDERED: LACT10SO9 PO (18:24)
[2022-06-12] MEDS ORDERED: HEPARIN PF LOCK 500 UNIT/5ML IV SCH (19:00)
== END 2022-06-12 20:01 | disposition home or self-care (01) | DRG 377 ==
LOC: EDH 13:01 → EDHIP 14:39 → 2DH 20:06
PROVIDERS: ADMIT Internal Medicine Critical Care Medicine; ATTEND Internal Medicine Critical Care Medicine
PROC: 30233N1 Transfusion of Nonautologous Red Blood Cells into Peripheral Vein, Percutaneous Approach (ICD-10-PCS; principal; 2022-06-09)
DX: K29.71 Gastritis, unspecified, with bleeding (principal); E43 Unspecified severe protein-calorie malnutrition; J18.9 Pneumonia, unspecified organism; J96.21 Acute and chronic respiratory failure with hypoxia; C92.10 Chronic myeloid leukemia, BCR/ABL-positive, not having achieved remission; N17.9 Acute kidney failure, unspecified; J44.0 Chronic obstructive pulmonary disease with (acute) lower respiratory infection; D62 Acute posthemorrhagic anemia; I50.32 Chronic diastolic (congestive) heart failure; I13.0 Hypertensive heart and chronic kidney disease with heart failure and stage 1 through stage 4 chronic kidney disease, or unspecified chronic kidney disease; N18.4 Chronic kidney disease, stage 4 (severe); K21.01 Gastro-esophageal reflux disease with esophagitis, with bleeding; Z20.822 Contact with and (suspected) exposure to COVID-19; E11.22 Type 2 diabetes mellitus with diabetic chronic kidney disease; E11.65 Type 2 diabetes mellitus with hyperglycemia; E78.5 Hyperlipidemia, unspecified; Z66 Do not resuscitate; I27.20 Pulmonary hypertension, unspecified; D69.6 Thrombocytopenia, unspecified; I25.10 Atherosclerotic heart disease of native coronary artery without angina pectoris; Z95.1 Presence of aortocoronary bypass graft; Z95.810 Presence of automatic (implantable) cardiac defibrillator; Z88.0 Allergy status to penicillin; Z90.710 Acquired absence of both cervix and uterus; Z95.2 Presence of prosthetic heart valve
CPT/HCPCS: 36415; 71045; 80048; 80053; 81001; 82270; 82550; 82948; 83735; 83874; 83880; 84100; 84145; 84484; 85014; 85018; 85025; 85027; 85378; 85610; 85730; 86850; 86900; 86901; 86923; 87040; 87635; 87804; 93005; 93306; 93970; 94640; 94664; 94760; 97039; C9113; C9803; G0378; J1642; J1815; J1940; J2185; J2354; J3490; J7050; P9016

== ENCOUNTER → 2022-11-17 | Outpatient (CLI) | payer MEDICARE ==
[~2022-11-17] MED LIST changes: +AMLO-258 PO; +BIMA12.5OS OU; +CHOL2000 PO; -CYAN50005 PO; +DOXY100T21 PO; +FERR236T3 PO; +FOLI0.4T6 PO; +FOLI0.8T22 PO; -FOLI1TAB15 PO; +LACT10SO9 PO; +MECO10005 PO; +METO25TA6 PO; -MIRT-22 PO; +MIRT45TA79 PO; +MIRT45TA83 PO; -PANT40TA PO; +PANT40TA54 PO; +POLY15DR38 OP; +POTA10CA45 PO
== END | disposition home or self-care (01) ==
LOC: RAH 07:51
PROVIDERS: ATTEND Internal Medicine
DX: M79.89 Other specified soft tissue disorders (principal); I87.2 Venous insufficiency (chronic) (peripheral)
CPT/HCPCS: 93926; 93971

== ENCOUNTER → 2022-12-19 | Outpatient (CLI) | payer MEDICARE ==
[~2022-12-19] MED LIST changes: -POTA10CA45 PO; +POTA10CA85 PO
[2022-12-19 13:11] LABS: CREATININE 2.1 mg/dL (0.5-1.5); POTASSIUM 4.5 mmol/L (3.5-5.1)
== END | disposition home or self-care (01) ==
LOC: LAB 11:44
PROVIDERS: ATTEND Nurse Practitioner Acute Care
DX: I50.32 Chronic diastolic (congestive) heart failure (principal)
CPT/HCPCS: 36415; 80048; 83880

== ENCOUNTER → 2023-05-22 | Outpatient (CLI) | payer MEDICARE | END | disposition home or self-care (01) | LOC: SHCH 10:24 | PROVIDERS: ATTEND Internal Medicine Cardiovascular Disease | DX: I08.2 Rheumatic disorders of both aortic and tricuspid valves (principal); I27.20 Pulmonary hypertension, unspecified; I11.9 Hypertensive heart disease without heart failure; E11.9 Type 2 diabetes mellitus without complications; Z95.3 Presence of xenogenic heart valve | CPT/HCPCS: 93306 ==

== ENCOUNTER 2023-07-17 21:03 | Observation (INO) | payer MEDICARE ==
[~2023-07-17] VITALS: Ht 154.9 cm; Wt 72.0 kg
[~2023-07-17 21:03] MED LIST changes: -AMLO-258 PO; -CHOL200012 PO; -CYAN25006 SL; -DOXY100T21 PO; -FERR-82 PO; -FERR236T3 PO; -FOLI0.4T6 PO; +FOLI1 PO; -FOLI1TAB61 PO; -GABA-529 PO; -HYDR25SU11 PR; -LACT10SO5 PO; -LACT10SO9 PO; -LATA2.5D14 OU; -MECO10005 PO; -METO25 PO; +METO5TAB7 PO; -MIRT45TA79 PO; -NILO150C PO; +PANT40TA PO; -PANT40TA54 PO; -POLY15DR38 OP; -POTA-183 PO; -SITA25TA5 PO; -SUCR1TAB2 PO; +VIT SL
[2023-07-17 21:24] LABS: BASOPHILS # (AUTO) 0.07 K/uL (0.00-0.20); BASOPHILS % (AUTO) 0.6 % (0.0-5.0); EOSINOPHILS # (AUTO) 0.01 K/uL (0.00-0.70); EOSINOPHILS % (AUTO) 0.1 % (0.0-8.0); IMMATURE GRANULOCYTE ABSOLUTE 1.04 K/uL (0-1); LYMPHOCYTES # (AUTO) 0.4 K/uL (1.0-4.8); LYMPHOCYTES % (AUTO) 3.1 % (21.0-51.0); MEAN CORPUSCULAR HEMOGLOBIN 29.7 pg (27.0-33.0); MEAN CORPUSCULAR HGB CONC 32.2 g/dL (32.0-36.0); MEAN CORPUSCULAR VOLUME 92.4 fL (79-99); MONOCYTES # (AUTO) 0.3 K/uL (0.1-1.0); MONOCYTES % (AUTO) 2.1 % (3.0-13.0); NEUTROPHILS # (AUTO) 10.4 K/uL (1.8-7.7); NEUTROPHILS % (AUTO) 85.5 % (40.0-77.0); NUCLEATED RED BLOOD CELLS 1.2 % (0.0-0.19); PLATELET COUNT (AUTO) 140 K/uL (130-400); RED BLOOD CELL COUNT(AUTO) 2.49 MIL/uL (4.00-5.50); RED CELL DISTRIBUTION WIDTH 20.7 % (11.0-15.5); WHITE BLOOD COUNT (AUTO) 12.1 K/uL (4.8-10.8)
[2023-07-17 21:34] LABS: CREATININE 2.6 mg/dL (0.5-1.5); POTASSIUM 5.1 mmol/L (3.5-5.1)
[2023-07-17 21:49] LABS: BAND NEUTROPHILS % (MANUAL) 12 % (0-2); LYMPHOCYTES % (MANUAL) 3 % (22-44); MAN.DIFF COMMENT-IMPRESSION MANUAL DIFFERENTIAL; METAMYELOCYTES % 4 % (0-0); MONOCYTES % (MANUAL) 3 % (2-9); MYELOCYTES % 1 % (0-0); PLATELET MORPHOLOGY COMMENT ADEQUATE; REACTIVE LYMPHOCYTES 1 % (0-0); SEGMENTED NEUTROPHILS % 76 % (40-70); TOTAL CELLS COUNTED 100
[2023-07-17 21:52] LABS: PROTHROMBIN TIME 11.6 SEC (9.6-11.6)
[2023-07-17] MEDS ORDERED: METOCLOPRAMIDE 10 MG/2 ML VIAL IVP ONE (22:00)
[2023-07-17] MEDS ORDERED: PANTOPRAZOLE 40 MG/VIAL IVP ONE (22:00)
[2023-07-17] MEDS: PANTOPRAZOLE 40MG INJ 80 MG in 0.9%NACL 100ML 100 ML IVP SCH (23:21)
[2023-07-17 23:28] LABS: APPEARANCE,URINE CLEAR (CLEAR); BILIRUBIN,URINE NEGATIVE (NEGATIVE); COLOR,URINE LIGHT-YELLOW (YELLOW); GLUCOSE, URINE (UA) 70 mg/dL (NEGATIVE); KETONES,URINE NEGATIVE (NEGATIVE); LEUKOCYTE ESTERASE ,URINE NEGATIVE Leu/uL (NEGATIVE); NITRATE,URINE NEGATIVE (NEGATIVE); PROTEIN,URINE NEGATIVE (NEGATIVE); UROBILINOGEN,URINE 0.2 mg/dL (0.2-1.0)
[2023-07-17 23:29] LABS: ADD UA MICROSCOPIC YES
[2023-07-17 23:32] LABS: BACTERIA,URINE RARE /HPF (None Seen); MUCUS,URINE RARE LPF (None Seen); RBC,URINE 0-1 /HPF (0-1); SQUAMOUS EPITHELIAL CELL,UR RARE /HPF (0-2); WBC,URINE 0-1 /HPF (0-1)
[2023-07-17 23:50] LABS: SARS-CoV-2, RNA, NAAT NEGATIVE SARS CoV-2 (NEGATIVE)
[2023-07-17 23:53] LABS: INFLUENZA TYPE A Negative For Type A (NEGATIVE); INFLUENZA TYPE B Negative For Type B (NEGATIVE)
[2023-07-18] VITALS (9 sets, daily range): BP systolic 103–113; BP diastolic 37–49; PULSE 67–85; RESP 17–20; O2SAT 95–100
[2023-07-18] MEDS ORDERED: 0.9%NACL 1000ML 1,000 ML IV SCH (01:30)
[2023-07-18] MEDS ORDERED: ACETAMINOPHEN 650 MG SUPPOSITORY RC PRN (01:30)
[2023-07-18] MEDS ORDERED: ONDANSETRON 4MG INJ IVP PRN (01:30)
[2023-07-18] MEDS ORDERED: HYDRALAZINE 20MG/ML VIAL IV PRN (01:30)
[2023-07-18] MEDS: INSULIN HUMULIN R 100 UNIT/ML 3ML SQ SCH ×4 (05:40→20:38)
[2023-07-18] MEDS: PANTOPRAZOLE 40MG INJ 80 MG in 0.9%NACL 100ML 100 ML IVP SCH ×2 (08:02→17:34)
[2023-07-18 08:09] LABS: BASOPHILS % (AUTO) 0.9 % (0.0-5.0); EOSINOPHILS # (AUTO) 0.04 K/uL (0.00-0.70); EOSINOPHILS % (AUTO) 0.3 % (0.0-8.0); HEMATOCRIT 27.1 % (36-48); IMMATURE GRANULOCYTE ABSOLUTE 0.93 K/uL (0-1); LYMPHOCYTES # (AUTO) 0.5 K/uL (1.0-4.8); LYMPHOCYTES % (AUTO) 4.3 % (21.0-51.0); MEAN CORPUSCULAR HEMOGLOBIN 29.9 pg (27.0-33.0); MEAN CORPUSCULAR HGB CONC 32.5 g/dL (32.0-36.0); MEAN CORPUSCULAR VOLUME 92.2 fL (79-99); MONOCYTES # (AUTO) 0.4 K/uL (0.1-1.0); MONOCYTES % (AUTO) 3.4 % (3.0-13.0); NEUTROPHILS # (AUTO) 9.8 K/uL (1.8-7.7); NEUTROPHILS % (AUTO) 83.2 % (40.0-77.0); NUCLEATED RED BLOOD CELLS 0.7 % (0.0-0.19); PLATELET COUNT (AUTO) 122 K/uL (130-400); RED BLOOD CELL COUNT(AUTO) 2.94 MIL/uL (4.00-5.50); RED CELL DISTRIBUTION WIDTH 19.2 % (11.0-15.5); WHITE BLOOD COUNT (AUTO) 11.7 K/uL (4.8-10.8)
[2023-07-18 08:18] LABS: INR 0.98 (0.85-1.15); PROTHROMBIN TIME 11.4 SEC (9.6-11.6)
[2023-07-18 08:19] LABS: CREATININE 2.4 mg/dL (0.5-1.5); MAGNESIUM 1.4 mg/dL (1.80-2.40); PHOSPHORUS 3.1 mg/dL (2.5-4.9); POTASSIUM 4.7 mmol/L (3.5-5.1)
[2023-07-18] MEDS ORDERED: COMPOUND IV REFRIGERATED 1 EACH IVSOLN MISC PRN (13:30)
[2023-07-18 13:42] LABS: HEMATOCRIT 28.1 % (36-48)
[2023-07-18] MEDS: MIRTAZAPINE 15 MG TABLET PO SCH (19:49)
[2023-07-18] MEDS ORDERED: MAGNESIUM 2GM PREMIX 50ML 50 ML IV PRN (20:00)
[2023-07-18] MEDS ORDERED: MIRTAZAPINE 45 MG PO SCH (21:00)
[2023-07-19] VITALS (8 sets, daily range): BP systolic 109–129; BP diastolic 44–73; PULSE 76–83; RESP 18–20; O2SAT 95–99
[2023-07-19] MEDS: PANTOPRAZOLE 40MG INJ 80 MG in 0.9%NACL 100ML 100 ML IVP SCH ×2 (03:30→13:21)
[2023-07-19] MEDS: INSULIN HUMULIN R 100 UNIT/ML 3ML SQ SCH ×4 (06:00→20:30)
[2023-07-19 07:31] LABS: BASOPHILS # (AUTO) 0.12 K/uL (0.00-0.20); BASOPHILS % (AUTO) 1.2 % (0.0-5.0); EOSINOPHILS # (AUTO) 0.38 K/uL (0.00-0.70); EOSINOPHILS % (AUTO) 3.7 % (0.0-8.0); HEMATOCRIT 29.8 % (36-48); IMMATURE GRANULOCYTE ABSOLUTE 0.75 K/uL (0-1); LYMPHOCYTES # (AUTO) 0.9 K/uL (1.0-4.8); LYMPHOCYTES % (AUTO) 8.4 % (21.0-51.0); MEAN CORPUSCULAR HEMOGLOBIN 30.3 pg (27.0-33.0); MEAN CORPUSCULAR HGB CONC 31.2 g/dL (32.0-36.0); MEAN CORPUSCULAR VOLUME 97.1 fL (79-99); MONOCYTES # (AUTO) 0.5 K/uL (0.1-1.0); MONOCYTES % (AUTO) 4.5 % (3.0-13.0); NEUTROPHILS # (AUTO) 7.7 K/uL (1.8-7.7); NEUTROPHILS % (AUTO) 74.9 % (40.0-77.0); PLATELET COUNT (AUTO) 110 K/uL (130-400); RED BLOOD CELL COUNT(AUTO) 3.07 MIL/uL (4.00-5.50); RED CELL DISTRIBUTION WIDTH 20.4 % (11.0-15.5); WHITE BLOOD COUNT (AUTO) 10.3 K/uL (4.8-10.8)
[2023-07-19 07:45] LABS: ALBUMIN 2.9 g/dL (3.5-5.0); BILIRUBIN,TOTAL 0.9 mg/dL (0.2-1.0); CREATININE 2.3 mg/dL (0.5-1.5); POTASSIUM 4.5 mmol/L (3.5-5.1); TOTAL PROTEIN, SERUM 5.3 g/dL (6.0-8.3)
[2023-07-19 07:50] LABS: B-TYPE NATRIURETIC PEPTIDE 372 pg/mL (0-100)
[2023-07-19 08:30] LABS: BAND NEUTROPHILS % (MANUAL) 7 % (0-2); EOSINOPHILS % (MANUAL) 4 % (1-6); LYMPHOCYTES % (MANUAL) 11 % (22-44); MAN.DIFF COMMENT-IMPRESSION MANUAL DIFFERENTIAL; MONOCYTES % (MANUAL) 1 % (2-9); PLATELET MORPHOLOGY COMMENT SLIGHTLY DECREASED; SEGMENTED NEUTROPHILS % 77 % (40-70); TOTAL CELLS COUNTED 100
[2023-07-19] MEDS: AMINOCAPROIC ACID 500MG TAB PO SCH ×3 (08:46→20:30)
[2023-07-19] MEDS: MIRTAZAPINE 15 MG TABLET PO SCH (20:30)
[2023-07-19] MEDS: ALPRAZOLAM 0.25 MG TABLET PO PRN (20:37)
[2023-07-20] VITALS (9 sets, daily range): BP systolic 117–135; BP diastolic 45–64; PULSE 72–97; RESP 16–22; O2SAT 98–99
[2023-07-20] MEDS: INSULIN HUMULIN R 100 UNIT/ML 3ML SQ SCH ×4 (05:58→23:18)
[2023-07-20 07:54] LABS: BASOPHILS # (AUTO) 0.09 K/uL (0.00-0.20); EOSINOPHILS # (AUTO) 0.33 K/uL (0.00-0.70); EOSINOPHILS % (AUTO) 3.7 % (0.0-8.0); HEMATOCRIT 30.6 % (36-48); IMMATURE GRANULOCYTE ABSOLUTE 0.63 K/uL (0-1); LYMPHOCYTES # (AUTO) 0.5 K/uL (1.0-4.8); MEAN CORPUSCULAR HEMOGLOBIN 30.2 pg (27.0-33.0); MEAN CORPUSCULAR HGB CONC 30.7 g/dL (32.0-36.0); MEAN CORPUSCULAR VOLUME 98.4 fL (79-99); MONOCYTES # (AUTO) 0.4 K/uL (0.1-1.0); MONOCYTES % (AUTO) 4.8 % (3.0-13.0); NEUTROPHILS # (AUTO) 7.1 K/uL (1.8-7.7); NEUTROPHILS % (AUTO) 78.5 % (40.0-77.0); NUCLEATED RED BLOOD CELLS 0.6 % (0.0-0.19); PLATELET COUNT (AUTO) 124 K/uL (130-400); RED BLOOD CELL COUNT(AUTO) 3.11 MIL/uL (4.00-5.50); RED CELL DISTRIBUTION WIDTH 20.3 % (11.0-15.5)
[2023-07-20 08:09] LABS: CREATININE 1.9 mg/dL (0.5-1.5); POTASSIUM 4.1 mmol/L (3.5-5.1)
[2023-07-20 09:05] LABS: BAND NEUTROPHILS % (MANUAL) 4 % (0-2); BASOPHILS % (MANUAL) 3 % (0-2); EOSINOPHILS % (MANUAL) 3 % (1-6); LYMPHOCYTES % (MANUAL) 5 % (22-44); MONOCYTES % (MANUAL) 3 % (2-9); REACTIVE LYMPHOCYTES 2 % (0-0); SEGMENTED NEUTROPHILS % 80 % (40-70); TOTAL CELLS COUNTED 100
[2023-07-20 09:06] LABS: MAN.DIFF COMMENT-IMPRESSION MANUAL DIFFERENTIAL; PLATELET MORPHOLOGY COMMENT SLIGHTLY DECREASED
[2023-07-20] MEDS: AMINOCAPROIC ACID 500MG TAB PO SCH ×3 (10:30→21:38)
[2023-07-20] MEDS: MIRTAZAPINE 15 MG TABLET PO SCH (21:38)
[2023-07-20] MEDS: ALPRAZOLAM 0.25 MG TABLET PO PRN (23:16)
[2023-07-21] VITALS (7 sets, daily range): BP systolic 113–135; BP diastolic 52–62; PULSE 77–79; RESP 16–20; O2SAT 98–100
[2023-07-21 05:02] LABS: BASOPHILS # (AUTO) 0.09 K/uL (0.00-0.20); BASOPHILS % (AUTO) 1.2 % (0.0-5.0); EOSINOPHILS # (AUTO) 0.34 K/uL (0.00-0.70); EOSINOPHILS % (AUTO) 4.5 % (0.0-8.0); HEMATOCRIT 29.8 % (36-48); IMMATURE GRANULOCYTE ABSOLUTE 0.43 K/uL (0-1); LYMPHOCYTES # (AUTO) 0.4 K/uL (1.0-4.8); LYMPHOCYTES % (AUTO) 5.4 % (21.0-51.0); MEAN CORPUSCULAR HEMOGLOBIN 29.7 pg (27.0-33.0); MEAN CORPUSCULAR HGB CONC 30.5 g/dL (32.0-36.0); MEAN CORPUSCULAR VOLUME 97.4 fL (79-99); MONOCYTES # (AUTO) 0.3 K/uL (0.1-1.0); MONOCYTES % (AUTO) 4.2 % (3.0-13.0); NEUTROPHILS # (AUTO) 5.9 K/uL (1.8-7.7); NUCLEATED RED BLOOD CELLS 0.4 % (0.0-0.19); PLATELET COUNT (AUTO) 121 K/uL (130-400); RED BLOOD CELL COUNT(AUTO) 3.06 MIL/uL (4.00-5.50); WHITE BLOOD COUNT (AUTO) 7.5 K/uL (4.8-10.8)
[2023-07-21 05:13] LABS: CREATININE 1.6 mg/dL (0.5-1.5); POTASSIUM 3.7 mmol/L (3.5-5.1)
[2023-07-21] MEDS: INSULIN HUMULIN R 100 UNIT/ML 3ML SQ SCH ×4 (05:35→23:16)
[2023-07-21] MEDS: IRON SUCROSE COMPLEX 300 MG in 0.9% NACL 250ML 250 ML IV SCH (08:49)
[2023-07-21] MEDS: AMINOCAPROIC ACID 500MG TAB PO SCH ×3 (08:50→20:25)
[2023-07-21] MEDS: ALPRAZOLAM 0.25 MG TABLET PO PRN (17:51)
[2023-07-21] MEDS: MIRTAZAPINE 15 MG TABLET PO SCH (20:26)
[2023-07-22] VITALS (9 sets, daily range): BP systolic 124–151; BP diastolic 53–66; PULSE 72–91; RESP 16–22; O2SAT 96–98
[2023-07-22 05:55] LABS: BASOPHILS # (AUTO) 0.11 K/uL (0.00-0.20); BASOPHILS % (AUTO) 1.2 % (0.0-5.0); EOSINOPHILS # (AUTO) 0.47 K/uL (0.00-0.70); EOSINOPHILS % (AUTO) 5.1 % (0.0-8.0); IMMATURE GRANULOCYTE ABSOLUTE 0.57 K/uL (0-1); LYMPHOCYTES # (AUTO) 0.5 K/uL (1.0-4.8); LYMPHOCYTES % (AUTO) 4.9 % (21.0-51.0); MEAN CORPUSCULAR HEMOGLOBIN 30.1 pg (27.0-33.0); MEAN CORPUSCULAR VOLUME 100.3 fL (79-99); MONOCYTES # (AUTO) 0.4 K/uL (0.1-1.0); MONOCYTES % (AUTO) 4.2 % (3.0-13.0); NEUTROPHILS # (AUTO) 7.3 K/uL (1.8-7.7); NEUTROPHILS % (AUTO) 78.4 % (40.0-77.0); NUCLEATED RED BLOOD CELLS 0.2 % (0.0-0.19); PLATELET COUNT (AUTO) 133 K/uL (130-400); RED BLOOD CELL COUNT(AUTO) 3.29 MIL/uL (4.00-5.50); RED CELL DISTRIBUTION WIDTH 19.9 % (11.0-15.5); WHITE BLOOD COUNT (AUTO) 9.2 K/uL (4.8-10.8)
[2023-07-22] MEDS: INSULIN HUMULIN R 100 UNIT/ML 3ML SQ SCH ×4 (06:00→23:35)
[2023-07-22 06:05] LABS: CREATININE 1.4 mg/dL (0.5-1.5); POTASSIUM 3.9 mmol/L (3.5-5.1)
[2023-07-22] MEDS: AMINOCAPROIC ACID 500MG TAB PO SCH ×3 (08:29→20:47)
[2023-07-22] MEDS: IRON SUCROSE COMPLEX 300 MG in 0.9% NACL 250ML 250 ML IV SCH (09:41)
[2023-07-22] MEDS ORDERED: FUROSEMIDE 40 MG TABLET PO ONE (16:10)
[2023-07-22] MEDS: MIRTAZAPINE 15 MG TABLET PO SCH (20:47)
[2023-07-22] MEDS: ALPRAZOLAM 0.25 MG TABLET PO PRN (20:47)
[2023-07-23 03:57] VITALS: BP 135/60; PULSE 81; RESP 18
[2023-07-23] MEDS: INSULIN HUMULIN R 100 UNIT/ML 3ML SQ SCH ×2 (05:46→11:02)
[2023-07-23 07:40] VITALS: PULSE 80; RESP 20; O2SAT 99
[2023-07-23] MEDS: AMINOCAPROIC ACID 500MG TAB PO SCH (07:46)
[2023-07-23 08:00] VITALS: BP 155/54; PULSE 86; RESP 18; O2SAT 100
[2023-07-23] MEDS: IRON SUCROSE COMPLEX 300 MG in 0.9% NACL 250ML 250 ML IV SCH (08:48)
[2023-07-23] MEDS ORDERED: FUROSEMIDE 40 MG TABLET PO SCH (09:00)
[2023-07-23 11:00] VITALS: BP 143/83; PULSE 90; RESP 18
[2023-07-23] MEDS ORDERED: PHARMACY COMMUNICATION MISC SCH (13:00)
[2023-07-23] MEDS ORDERED: HEPARIN PF LOCK 500 UNIT/5ML IV ONE (13:30)
== END 2023-07-23 14:00 | disposition home or self-care (01) ==
LOC: EDH 21:03 → EDHIP 07-18 01:06 → 3AH 07-18 09:20
PROVIDERS: ADMIT Internal Medicine; ATTEND Internal Medicine
DX: D62 Acute posthemorrhagic anemia (principal); Z20.822 Contact with and (suspected) exposure to COVID-19; K92.1 Melena; J96.20 Acute and chronic respiratory failure, unspecified whether with hypoxia or hypercapnia; I12.9 Hypertensive chronic kidney disease with stage 1 through stage 4 chronic kidney disease, or unspecified chronic kidney disease; E11.22 Type 2 diabetes mellitus with diabetic chronic kidney disease; N18.9 Chronic kidney disease, unspecified; D63.1 Anemia in chronic kidney disease; N17.9 Acute kidney failure, unspecified; I27.20 Pulmonary hypertension, unspecified; D72.829 Elevated white blood cell count, unspecified; D72.825 Bandemia; E11.65 Type 2 diabetes mellitus with hyperglycemia; R62.7 Adult failure to thrive; E78.00 Pure hypercholesterolemia, unspecified; I35.0 Nonrheumatic aortic (valve) stenosis; E87.8 Other disorders of electrolyte and fluid balance, not elsewhere classified; Z90.710 Acquired absence of both cervix and uterus; Z95.1 Presence of aortocoronary bypass graft; Z88.0 Allergy status to penicillin; Z85.6 Personal history of leukemia; Z87.11 Personal history of peptic ulcer disease; Z95.2 Presence of prosthetic heart valve; Z79.899 Other long term (current) drug therapy
CPT/HCPCS: 96376; 96365; 96375 ×2; 99285; 82550; 84484; 80048 ×5; 85025 ×6; 85610 ×2; 86850; 86900; 86901; 86923; 87804 ×2; 82270; 81001; 36415 ×6; 87635; 71045 ×2; 93005 ×2; 96361; 96366 ×5; 96367; 83735 ×2; 84100; 85014; 85018; 87040 ×2; 82948 ×23; 84145; 80053; 83880; C9113 ×5; J2765; G0378 ×133; P9016; J3475; J1756 ×3; J7050 ×3; J1642

== ENCOUNTER → 2023-08-12 | Outpatient (CLI) | payer MEDICARE ==
[~2023-08-12] MED LIST changes: -FOLI1 PO
[2023-08-12 16:41] LABS: POTASSIUM 4.4 mmol/L (3.5-5.1)
== END | disposition home or self-care (01) ==
LOC: LAB 15:03
PROVIDERS: ATTEND Internal Medicine Cardiovascular Disease
DX: I50.32 Chronic diastolic (congestive) heart failure (principal)
CPT/HCPCS: 36415; 80048; 83880